=== PATIENT | male | born 1990 | race Caucasian/White ===

== ENCOUNTER 2021-06-05 15:32 | Inpatient (IN) | payer MEDICAID, SELFPAY ==
[2021-06-05] VITALS (19 sets, daily range): BP systolic 76–128; BP diastolic 57–121; PULSE 87–129; RESP 18–32; TEMP 36.9; O2SAT 91–100; BMI 30.4
--- NOTE | ~2021-06-05 | XR_ITS ---
XR chest 1V portable 06/06/2021 07:48 Indication: Pneumonia follow-up Procedure: AP view of the chest Comparison: 06/05/2021 Findings: There is improving patchy bilateral airspace disease, consistent with pneumonia. No pleural effusion or pneumothorax. Impression: 1: Improving patchy bilateral airspace disease, consistent with pneumonia. Reviewed, dictated and finalized at location A. ECH PRODUCTION SPECIALIST Impression: 1: Improving patchy bilateral airspace disease, consistent with pneumonia.
--- NOTE | ~2021-06-05 | CT_ITS ---
EXAMINATION: CT brain wo con INDICATION: Transient alteration of awareness COMPARISON: None TECHNIQUE: Standard unenhanced head CT. The dose-length product (DLP) was 605.33 mGy-cm. The mA was a djusted according to patient size. Iterative reconstruction technique was employed. FINDINGS: There is no intracranial hemorrhage, acute infarction, or abnormal mass lesion. The ventric les are normal. There is no abnormal mass effect or midline shift. The thomas-white matter differentiat ion is normal. The basal cisterns are patent. The orbits are normal. The paranasal sinuses, mastoids and calvarium are normal. IMPRESSION: 1. No acute intracranial abnormality. Reviewed, dictated and finalized at location F. ADVISOR
--- NOTE | ~2021-06-05 | XR_ITS ---
EXAMINATION: XR chest 1V portable INDICATION: Overdose TECHNIQUE: Portable AP chest at 1559 hours COMPARISON: None available FINDINGS: There are patchy airspace opacities throughout the right lung and in the left mid and lower lung zones. There is no pleural effusion or pneumothorax. The heart size is normal. There is pneumom ediastinum as well as soft tissue gas in the neck. IMPRESSION: 1. Patchy bilateral airspace opacities, right greater than left, likely pneumonia. 2. Pneumomediastinum and soft tissue gas in the neck which could reflect paravertebral trauma. Reviewed, dictated and finalized at location F. ATE INVESTIGATOR SURVEILLANCE IMPRESSION: 1. Patchy bilateral airspace opacities, right greater than left, likely pneumon ia. 2. Pneumomediastinum and soft tissue gas in the neck which could reflect parave rtebral trauma.
--- NOTE | 2021-06-05 15:45 | ECG_ITS ---
Measurements Intervals [place] Rate: 130 P: 69 MO: 130 QRS: 84 QRSD: 81 T: 55 QT: 265 QTc: 391 Interpretive Statements SINUS TACHYCARDIA BASELINE ARTIFACT- II, III, AVR, AVL, AVF ABNORMAL ECG Electronically Signed On 06-05-2021 20:15:25 [employer]NAGER [employer] by Alfredo Philip D.O.
[2021-06-05] MEDS: ONDANSETRON INJ 4 MG/2 ML VIAL IV PUSH (15:47)
[2021-06-05] MEDS: NALOXONE HCL INJ 2 MG/2 ML AMP IV PUSH ×2 (15:47→16:42)
[2021-06-05 16:25] LABS: Alveolar/Arterial O2 Gradient 628.2 mmHg; Base Excess ABG -8.6 mEq/l (+/-2.0); Fractional Inspired Oxygen 100 %; HCO3 ABG 16.5 mEq/l (22.0-26.0); Oxygen Content ABG 23.7 %vol (16.0-22.0); Oxyhemoglobin 88.3 % THb (90.0-100.0); PCO2 ABG 34.1 mmHg (35.0-45.0); PO2 ABG 50.7 mmHg (80.0-100.0); PO2 FiO2 Ratio Arterial Blood 0.51 %; Total Hemoglobin 19.2 g/dL (12.0-18.0); pH ABG 7.302 (7.350-7.450)
[2021-06-05 16:26] LABS: Device HIGH FLOW NASAL CANN; Modified Allen's Test Pass; Oxygen Saturation ABG 82.7 % (95.0-100.0); Site Drawn RIGHT BRACHIAL
[2021-06-05 16:36] LABS: Basophils Absolute Auto 0.1 K/mm3 (0.0-0.1); Basophils Percent Auto 0.4 % (0.2-1.2); Hematocrit 55.1 % (42.0-52.0); Immature Granulocyte Absolute 0.06 K/mm3 (0.00-0.031); Immature Granulocyte Percent A 0.4 % (0-0.5); Lymphocytes Absolute Auto 1.23 K/mm3 (0.9-3.2); Lymphocytes Percent Auto 8.9 % (18.3-44.2); Mean Corpuscular HGB Conc 34.5 g/dl (32-36); Mean Corpuscular Hemoglobin 31.8 pg (26-34); Mean Corpuscular Volume 92.1 fl (80-100); Mean Platelet Volume 10.1 fl (7.4-10.4); Monocytes Absolute Auto 1.9 K/mm3 (0.1-0.6); Monocytes Percent Auto 13.8 % (2.6-8.5); Neutrophils Absolute Auto 10.6 K/mm3 (1.3-6.7); Neutrophils Percent Auto 76.5 % (45.5-73.1); Platelet Count Result 265 k/mm3 (150-375); Red Blood Count 5.98 M/mm3 (4.6-6.20); White Blood Count 13.8 K/mm3 (4.5-10.0)
[2021-06-05 16:40] LABS: Acetaminophen < 10 ug/mL (10-30); Ethanol < 10 mg/dL (<10); Lactic Acid Reflex 3.6 mmol/L (0.7-2.1); Salicylate < 1.0 mg/dL (2-20)
[2021-06-05] MEDS: Please add drug allergy info to patient profile. 1 EACH XX (16:42)
[2021-06-05] MEDS: SODIUM CHLORIDE 0.9% IV 1,000 ML 999 ML IV CONT ×2 (16:42→18:25)
[2021-06-05 16:46] LABS: Alanine Aminotransferase 39 U/L (4-50); Albumin Level 4.4 g/dL (3.5-5.1); Alkaline Phosphatase 63 U/L (38-126); Anion Gap 13 mmol/L (8-16); Aspartate Amino Transferase 69 U/L (17-59); Bilirubin,Total 0.8 mg/dL (0.2-1.3); Blood Urea Nitrogen 21 mg/dL (9-20); Calcium 7.7 mg/dL (8.4-10.2); Carbon Dioxide 20 mmol/L (22-30); Chloride 100 mmol/L (98-107); Estimated CRCL calculation 53 ml/min; Estimated Glomerular Filt Rate 45; Glucose 85 mg/dL (65-110); Potassium 7.5 mmol/L (3.4-5.0); Sodium 133 mmol/L (137-145)
[2021-06-05] MEDS: DEXTROSE 50% 25 GM/50 ML SYRINGE IV PUSH (16:58)
[2021-06-05] MEDS: INSULIN HUMAN REGULAR (*BKC) 100 UNITS/ML 10 UNITS IV PUSH (16:58)
[2021-06-05] MEDS: SODIUM BICARBONATE 8.4% 50 MEQ/50 ML SYRINGE IV PUSH (16:59)
[2021-06-05 17:02] LABS: Add Urine Microscopic? YES; Appearance Urine Clear (Clear); Bilirubin Urine Negative (Negative); Blood Urine 1+ (Negative); Color Urine Yellow (Yellow); Glucose Urine UA 3+ mg/dL (Negative); Ketones Urine Trace mg/dL (Negative); Leukocyte Esterase Ur Negative LEU/UL (Negative); Nitrate Urine Negative (Negative); Protein Urine 1+ mg/dL (Negative); RBC Urine 0-2 /hpf (0-2); Specific Grav Ur 1.012 (1.001-1.035); Urobilinogen Urine Negative mg/dL (<2.0)
--- NOTE | 2021-06-05 17:04 | ED.GENADULT ---
HPI - General Adult General Chief complaint: Overdose Stated complaint: OD Time Seen by Provider: 06/05/21 15:37 Source: family and RN notes reviewed Mode of arrival: EMS Limitations: altered mental status History of Present Illness HPI narrative: 30-year-old male presents to the emergency department for evaluation after a suspected fentanyl overdose. Patient does have a prior history of opiate abuse. Family states that the patient has been living at home with them. They state he did have rehab approximately 10 months ago. Patient has had increased life stressors including breaking up with his boyfriend and quitting his job. Parents state that they saw him last night and he was well-appearing. They went to check on him this morning at 11 AM and he was snoring in bed. They went to check on him again this afternoon at some time after 2:00 and found him to be breathing abnormally so they called EMS. EMS did treat the patient with multiple rounds of Narcan and did have a minor improvement in his mentation. Upon arrival to the emergency department patient was somnolent and tachycardic and hypoxic. Related Data Allergies Allergy/AdvReac Type Severity Reaction Status Date / Time No Known Allergies Allergy Verified 06/05/21 16:41 Review of Systems Review of Systems: ROS unobtainable: Yes unobtainable due to medical condition Exam Narrative: APPEARANCE: Somnolent HEAD: normocephalic, atraumatic. EYES: PERRLA/EOMI, conjunctivae clear. NOSE: Normal no drainage EARS:TMS clear with good light reflex. RESPIRATORY: Airway patent, respirations nonlabored. Clear to auscultation bilaterally, no rales, rhonchi, wheezing. CARDIOVASCULAR: Regular rate and rhythm without murmurs rubs or gallops. ABDOMINAL: Soft, nontender, nondistended, normal bowel sounds MUSCULOSKELETAL: Moves all extremities. Strength/ROM intact, No edema, No calf tenderness. NEURO: Somnolent but responsive to voice. No focal neuro deficit. SKIN: Warm, dry. Normal Color Course Course Emergency Course: Upon arrival to the emergency department patient was minimally responsive. Patient did respond to voice but not answer questions directly. Patient was still mildly hypoxic with saturations in the mid 80s to 90 on 15 L patient was placed on BiPAP and this significantly helped his oxygenation. Patient's potassium was elevated at 7.5. Patient was treated with insulin glucose bicarb Kayexalate and calcium gluconate. Patient is also receiving IV fluids. Patient did admit to taking a handful of fentanyl. Patient declined suicide attempt parents are concerned that this was a suicide attempt. Case was discussed with Dr. Abraham regarding the need for dialysis. He felt that the patient's potassium improved below 6 he would be comfortable keeping the patient here. Patient's potassium did improve to 5.7 on recheck. Case was discussed with the infirmary attendant and patient was accepted for admission to the ICU. Case was discussed with the hospitalist and patient was admitted. At time of admission patient was more alert and he was updated on the plan for admission. Case was also discussed with the patient's father and all questions and concerns were addressed. Vital Signs Vital signs: Vital Signs Pulse Rate 129 H 06/05/21 15:36 Respiratory Rate 32 H 06/05/21 15:36 Blood Pressure 128/121 H 06/05/21 15:36 Pulse Oximetry 92 06/05/21 15:36 Pulse Rate 88 06/05/21 21:06 Respiratory Rate 26 H 06/05/21 21:06 Blood Pressure 76/64 L 06/05/21 21:06 Pulse Oximetry 96 06/05/21 21:06 Medical Decision Making Vital Signs Vital Signs: Vital Signs Pulse Rate 129 H 06/05/21 15:36 Respiratory Rate 32 H 06/05/21 15:36 Blood Pressure 128/121 H 06/05/21 15:36 Pulse Oximetry 92 06/05/21 15:36 Pulse Rate 88 06/05/21 21:06 Respiratory Rate 26 H 06/05/21 21:06 Blood Pressure 76/64 L 06/05/21 21:06 Pulse Oximetry 96 06/05/21 21:06 Lab Data Lab
[2021-06-05 17:28] LABS: Amphetamine Screen Urine Negative (Negative); Barbiturate Screen Urine Negative (Negative); Benzodiazepines Screen Urine Negative (Negative); Cannabinoid Screen Urine Negative (Negative); Cocaine Screen Urine Negative (Negative); Methadone Screen Urine Negative (Negative); Opiate Screen Urine Negative (Negative); Phencyclidine Screen Urine Negative (Negative)
[2021-06-05 17:52] LABS: Anion Gap 9 mmol/L (8-16); Basophils Percent Auto 0.4 % (0.2-1.2); Blood Urea Nitrogen 23 mg/dL (9-20); Calcium 7.3 mg/dL (8.4-10.2); Carbon Dioxide 23 mmol/L (22-30); Chloride 103 mmol/L (98-107); Eosinophils Absolute Auto 0.2 K/mm3 (0-0.3); Eosinophils Percent Auto 1.6 % (0-4.4); Estimated CRCL calculation 59 ml/min; Estimated Glomerular Filt Rate 51; Glucose 137 mg/dL (65-110); Hematocrit 53.5 % (42.0-52.0); Hemoglobin 18.1 g/dL (14.0-18.0); Immature Granulocyte Absolute 0.03 K/mm3 (0.00-0.031); Immature Granulocyte Percent A 0.3 % (0-0.5); Lymphocytes Absolute Auto 0.91 K/mm3 (0.9-3.2); Lymphocytes Percent Auto 9.5 % (18.3-44.2); Mean Corpuscular HGB Conc 33.8 g/dl (32-36); Mean Corpuscular Hemoglobin 31.9 pg (26-34); Mean Corpuscular Volume 94.2 fl (80-100); Mean Platelet Volume 9.7 fl (7.4-10.4); Monocytes Absolute Auto 0.7 K/mm3 (0.1-0.6); Monocytes Percent Auto 7.5 % (2.6-8.5); Neutrophils Absolute Auto 7.7 K/mm3 (1.3-6.7); Neutrophils Percent Auto 80.7 % (45.5-73.1); Platelet Count Result 187 k/mm3 (150-375); Potassium 5.7 mmol/L (3.4-5.0); Red Blood Count 5.68 M/mm3 (4.6-6.20); Red Cell Distribution Width 13.1 % (11.5-14.5); Sodium 135 mmol/L (137-145); White Blood Count 9.5 K/mm3 (4.5-10.0)
[2021-06-05 18:43] LABS: SARS-CoV-2 RNA PCR Negative
[2021-06-05 18:53] LABS: Creatine Kinase 912 U/L (55-170)
[2021-06-05 19:20] LABS: Reflex Lactic Acid Yes or No Add Lactic
[2021-06-05] MEDS: CALCIUM GLUCONATE 1,000 MG/10 ML VIAL 1000 MG IV PUSH (19:23)
--- NOTE | 2021-06-05 19:38 | PC.NURSE ---
Pt currently being decontaminated by RN and Tech.
--- NOTE | 2021-06-05 19:45 | PC.NURSE ---
Pt clothing removed and placed in plastic bag, secured and disposed of in trash. New gown and linens on bed. Bed bath provided prior to transport to ICU.
[2021-06-05] MEDS: SODIUM CHLORIDE 0.9% IV 1,000 ML 999 ML (20:39)
[2021-06-05] MEDS: SODIUM POLYSTYRENE SULFONONATE 15 GM/60 ML BTL 30 GM PO (20:51)
[2021-06-05 20:54] LABS: Lactic Acid 1.8 mmol/L (0.7-2.1)
--- NOTE | 2021-06-05 21:08 | PC.NURSE ---
Patient care report called to MACIEJ Copeland in ICU. Patient care report given to MACIEJ Copeland and all questions answered at this time. Will transport to ICU with monitors and on Bipap with respiratory.
[2021-06-05] MEDS: LACTATED RINGERS 1,000 ML 125 ML IV CONT (21:16)
--- NOTE | 2021-06-05 21:48 | ADMGEN ---
This patient, Hilario Arechiga, was admitted to Intensive Care Unit-3 on 06/05/21 at 2135. Patient/family oriented to hospital policies and general routines including ID bracelet, bed and alarms, visiting hours, pain management, procedures, bathroom and other care routines, personal items, smoking policy, room service/diet, and visiting hours. Information on how to activate the Rapid Response Team has been discussed. Patient/Family are encouraged to report perceived risks to care and to ask questions if they do not understand what they are told or what they should do.
--- NOTE | 2021-06-05 22:23 | PM.IMHP ---
H&P: HPI History of Present Illness Date/Time: Patient requires inpatient monitoring with expected length of stay to exceed 2 midnights for management of care. 06/05/21 22:23 Chief Complaint: Overdose Narrative: Mr. Arechiga is a 30-year-old gentleman who presented to the emergency room for evaluation of suspected fentanyl overdose. When seen the patient he is currently on BiPAP so it is somewhat difficult to get history from him. Patient states he does have a prior history of fentanyl abuse and he has been using recently. Patient states he had been clean for over a year. Per emergency room records family had stated the patient has been living with them and has been having increasing stressors in his life including breaking up with his boyfriend in quitting his job. Per emergency room records patient's parents stated that when they saw him last night he was doing well and when they checked on him at 11:00 a.m. this morning he was snoring in bed. The family went to check on him again this afternoon around 2 and they found him to be breathing very abnormally and EMS was called. Per emergency room records patient was given multiple doses of Narcan in route to the hospital with little results and then patient was given Narcan in the emergency room and finally placed on a Narcan drip and he became arousable and more alert. Patient states that last night he was doing large amounts of fentanyl and he was snorting his fentanyl. Patient denies recently injecting any fentanyl. Patient denies having any past medical problems except for his addiction. Patient denies any history of surgeries. Review of Systems Review of Systems: It is difficult to obtain a full review of systems from patient secondary to his mental status and being on BiPAP. FOR[facility]LY [facility], [facility] Past Medical History Medical History Illicit drug use Social History Social History Smoking packs per day: 0.5 Smoking cigarettes per day: 10.0 Years smoked: 15 Smoking pack-years: 7.50 Smoking status: Current every day smoker Tobacco type: cigarettes Spiritual care concerns: No Meds Home Medications and Allergies Allergies Allergy/AdvReac Type Severity Reaction Status Date / Time No Known Allergies Allergy Verified 06/05/21 16:41 Vital Signs Vital Signs - 24 hr 06/05/21 15:36 06/05/21 16:27 06/05/21 16:43 Temperature Pulse Rate 129 H 122 H 117 H Respiratory Rate 32 H 27 H 27 H Blood Pressure 128/121 H 93/76 L Pulse Oximetry 92 96 97 06/05/21 19:43 06/05/21 20:02 06/05/21 20:06 Temperature Pulse Rate 112 H 98 102 H Respiratory Rate 23 H 23 H 22 H Blood Pressure 113/78 83/67 L Pulse Oximetry 96 100 100 06/05/21 20:11 06/05/21 20:16 06/05/21 20:31 Temperature Pulse Rate 95 97 95 Respiratory Rate 21 H 27 H 24 H Blood Pressure 92/63 L 87/63 L 86/61 L Pulse Oximetry 100 06/05/21 20:36 06/05/21 20:41 06/05/21 20:46 Temperature Pulse Rate 93 94 95 Respiratory Rate 21 H 20 18 Blood Pressure 83/61 L 88/65 L 77/57 L Pulse Oximetry 99 100 100 06/05/21 20:56 06/05/21 21:01 06/05/21 21:06 Temperature Pulse Rate 92 89 88 Respiratory Rate 22 H 22 H 26 H Blood Pressure 103/75 98/66 L 76/64 L Pulse Oximetry 91 100 96 06/05/21 21:30 06/05/21 21:36 Temperature 36.9 C Pulse Rate 87 92 Respiratory Rate 20 26 H Blood Pressure 100/64 Pulse Oximetry 96 99 Exam Narrative: Constitutional: Patient is resting in bed with BiPAP on and is in no acute distress. Patient is alert oriented times 2-3. HEENT: Moist mucous membranes. No scleral icterus. No lymphadenopathy. Neck: No carotid bruits noted no JVD noted Lungs: Lung sounds are clear to auscultation bilaterally. No accessory muscle use. No rhonchi, rales, or wheezes noted. Cardiovascular: Apical pulse is regular rhythm and tachycardic. S1-S2 noted, no S3 or S4 noted. No gallops, murmurs, or rubs noted. Abdomen: Soft, round, and nontender. No palpable masses. Extr
[2021-06-05] MEDS: SODIUM CHLORIDE 0.9% IV 1,000 ML 125 ML IV CONT (22:24)
[2021-06-05 23:34] LABS: Base Excess ABG -7.7 mEq/l (+/-2.0); Fractional Inspired Oxygen 50 %; HCO3 ABG 16.8 mEq/l (22.0-26.0); Oxygen Content ABG 20.2 %vol (16.0-22.0); Oxygen Saturation ABG 90.9 % (95.0-100.0); Oxyhemoglobin 90.3 % THb (90.0-100.0); PCO2 ABG 32.1 mmHg (35.0-45.0); PO2 ABG 62.4 mmHg (80.0-100.0); PO2 FiO2 Ratio Arterial Blood 1.25 %; Total Hemoglobin 15.9 g/dL (12.0-18.0); pH ABG 7.337 (7.350-7.450)
[2021-06-05 23:37] LABS: Device BIPAP; Modified Allen's Test Pass; Site Drawn LEFT RADIAL
[2021-06-05 23:38] LABS: Expiratory Pressure 6 cmH2O; Inspiratory Pressure 12 cmH2O
[2021-06-06] VITALS (20 sets, daily range): BP systolic 86–128; BP diastolic 52–93; PULSE 71–99; RESP 14–28; TEMP 36.4–37.3; O2SAT 92–99
[2021-06-06] MEDS: SODIUM CHLORIDE 0.9% IV 1,000 ML 999 ML IV CONT (00:20)
[2021-06-06 00:41] LABS: Anion Gap 6 mmol/L (8-16); Blood Urea Nitrogen 20 mg/dL (9-20); Calcium 6.5 mg/dL (8.4-10.2); Carbon Dioxide 18 mmol/L (22-30); Chloride 112 mmol/L (98-107); Creatine Kinase 1151 U/L (55-170); Estimated CRCL calculation 96 ml/min; Estimated Glomerular Filt Rate > 60; Glucose 129 mg/dL (65-110); Potassium 4.4 mmol/L (3.4-5.0); Sodium 136 mmol/L (137-145)
[2021-06-06 04:41] LABS: Basophils Percent Auto 0.2 % (0.2-1.2); Hematocrit 40.8 % (42.0-52.0); Hemoglobin 14.3 g/dL (14.0-18.0); Immature Granulocyte Absolute 0.03 K/mm3 (0.00-0.031); Immature Granulocyte Percent A 0.2 % (0-0.5); Lymphocytes Absolute Auto 0.99 K/mm3 (0.9-3.2); Lymphocytes Percent Auto 8.1 % (18.3-44.2); Mean Corpuscular Hemoglobin 31.8 pg (26-34); Mean Corpuscular Volume 90.9 fl (80-100); Mean Platelet Volume 10.4 fl (7.4-10.4); Monocytes Absolute Auto 0.8 K/mm3 (0.1-0.6); Monocytes Percent Auto 6.2 % (2.6-8.5); Neutrophils Absolute Auto 10.4 K/mm3 (1.3-6.7); Neutrophils Percent Auto 85.3 % (45.5-73.1); Platelet Count Result 155 k/mm3 (150-375); Red Blood Count 4.49 M/mm3 (4.6-6.20); Red Cell Distribution Width 13.3 % (11.5-14.5); White Blood Count 12.2 K/mm3 (4.5-10.0)
[2021-06-06 04:50] LABS: Alanine Aminotransferase 29 U/L (4-50); Albumin Level 2.6 g/dL (3.5-5.1); Alkaline Phosphatase 39 U/L (38-126); Anion Gap 3 mmol/L (8-16); Aspartate Amino Transferase 52 U/L (17-59); Bilirubin,Total 0.4 mg/dL (0.2-1.3); Blood Urea Nitrogen 15 mg/dL (9-20); Calcium 6.8 mg/dL (8.4-10.2); Carbon Dioxide 23 mmol/L (22-30); Chloride 111 mmol/L (98-107); Estimated CRCL calculation 105 ml/min; Estimated Glomerular Filt Rate > 60; Glucose 102 mg/dL (65-110); Potassium 3.9 mmol/L (3.4-5.0); Sodium 137 mmol/L (137-145)
[2021-06-06 05:08] LABS: Creatine Kinase 1058 U/L (55-170)
[2021-06-06] MEDS: SODIUM CHLORIDE 0.9% IV 1,000 ML 125 ML IV CONT ×2 (06:50→14:56)
--- NOTE | 2021-06-06 07:49 | WPDCNINT ---
Assessment and Plan Assessment and plan (1) Fentanyl poisoning of undetermined intent: Qualifiers: Encounter type: initial encounter Qualified Code(s): T40.414A - Poisoning by fentanyl or fentanyl analogs, undetermined, initial encounter Code(s): T40.414A - Poisoning by fentanyl or fentanyl analogs, undetermined, initial encounter Status: Acute Assessment and Plan: Patient presented with altered mental status, agonal breathing, known fentanyl abuse -patient was started on Narcan infusion in the ER and responded well -this morning he is awake, alert, oriented, follows simple commands -wound Narcan infusion monitor patient (2) Rhabdomyolysis: Code(s): M62.82 - Rhabdomyolysis Status: Acute Assessment and Plan: Patient received 5 L IV fluid bolus on maintenance IV fluids -CK levels most stable -will continue to monitor (3) Acute hyperkalemia: Code(s): E87.5 - Hyperkalemia Status: Acute Assessment and Plan: Acute hyperkalemia could be related to acute kidney injury, rhabdomyolysis, -patient was treated for the hyperkalemia with sodium bicarbonate, Kayexalate, insulin D50, -repeat potassium this morning is 3.9, continue to monitor (4) STEPHANIE (acute kidney injury): Code(s): N17.9 - Acute kidney failure, unspecified Status: Acute Assessment and Plan: Acute kidney injury most likely related to rhabdomyolysis, hypovolemia, hypoxia -he received 5 L of IV fluids and continues to be on maintenance IV fluids -transient admission was 1.8, which has improved to 1.0 this morning (06/06) -continue monitor renal function, electrolytes and urine output (5) Pulmonary infiltrates on CXR: Code(s): R91.8 - Other nonspecific abnormal finding of lung field Status: Acute Assessment and Plan: Pulmonary infiltrates right than left -could be related to pneumonia secondary to aspiration or fluid induced pulmonary edema -repeat chest x-ray this morning shows improvement -will switch ceftriaxone and azithromycin to Zosyn for aspiration pneumonia (6) Altered mental status: Code(s): R41.82 - Altered mental status, unspecified Status: Acute Assessment and Plan: Altered mental status most likely related to opioid abuse/overdose -improved with Narcan infusion, will continue to monitor Additional Plan Discussed with patient updated with his condition and plan of care. I did discuss with him regarding getting a repeat chest x-ray and giving him a break from the BiPAP to which she is agreeable. DVT prophylaxis: Lovenox Nutrition: Regular diet Code status: Full code Critical care time spent: 43 minute This dictation may have been done utilizing a voice recognition system. Attempts have been made to correct errors. However, there may be uncorrected grammatical, spelling, and recognition errors present. Due to a high probability of clinically significant, life threatening deterioration, the patient required my highest level of preparedness to intervene emergently and I personally spent this critical care time directly and personally managing the patient. This critical care time included obtaining a history; examining the patient; pulse oximetry; ordering and review of studies; arranging urgent treatment with development of a management plan; evaluation of patient's response to treatment; frequent reassessment; and discussions with other providers. It was exclusive of separately billable procedures and treating other patients and teaching time. Please see Assessment and Plan section and the rest of the note for further information on patient assessment and treatment Risk Management Specialist Consult Note Consult date: 06/06/21 Reason for consult: Likely opiate overdose HPI: Hilario Arechiga is a 30 year old male with significant past medical history of illicit drug use presented the ED on 06/05/2021 with complaints of altered mental status and suspected fentanyl o
[2021-06-06] MEDS: CALCIUM GLUC 2,000 MG/NS 100ML 2,000 MG/100 ML BAG 100 MG IVPB (08:04)
[2021-06-06] MEDS: ENOXAPARIN 40 MG/0.4 ML SYRINGE SUB-Q (08:32)
--- NOTE | 2021-06-06 14:23 | PM.IMPN ---
Progress Note: A&P Assessment and Plan (1) Fentanyl poisoning of undetermined intent: Qualifiers: Encounter type: initial encounter Qualified Code(s): T40.414A - Poisoning by fentanyl or fentanyl analogs, undetermined, initial encounter Code(s): T40.414A - Poisoning by fentanyl or fentanyl analogs, undetermined, initial encounter Status: Acute Assessment and Plan: status post Narcan and improved. Respiratory status is okay. Currently on 2liters of oxygen and options such patient Alyssa had (2) Rhabdomyolysis: Code(s): M62.82 - Rhabdomyolysis Status: Acute Assessment and Plan: -will continue to monitor (3) Acute hyperkalemia: Code(s): E87.5 - Hyperkalemia Status: Acute Assessment and Plan: Resolved. Monitor electrolytes (4) STEPHANIE (acute kidney injury): Code(s): N17.9 - Acute kidney failure, unspecified Status: Acute Assessment and Plan: kidney function improved. (5) Pulmonary infiltrates on CXR: Code(s): R91.8 - Other nonspecific abnormal finding of lung field Status: Acute Assessment and Plan: Pulmonary infiltrates right than left -currently on vanc and Zosyn. Possible aspiration. (6) Altered mental status: Code(s): R41.82 - Altered mental status, unspecified Status: Acute Assessment and Plan: Improved after Narcan. Subjective Date/time seen: 06/06/21 14:23 Alert, on 2liters of oxygen. No complaints really. Mild chest pain but he did have chest compressions prior to admission. Review of Systems Review of Systems: 10 point ROS negative except as stated in HPI / Subjective Exam Narrative: General: alert and oriented Psych: appropriate mood nad affect Eyes: PERRLA Neck: Trachea midline, no new lesions Skin: no changes Lungs: CTA Cardiac: Normal S1,S2, no MGR ABD: soft, nd, nt, nbs Ext: no new lesions, no cce Vasc: Pulses intact Objective Data Vital Signs Vital Signs: Vital Signs - 24 hr 06/05/21 15:36 06/05/21 16:27 06/05/21 16:43 Temperature Pulse Rate 129 H 122 H 117 H Respiratory Rate 32 H 27 H 27 H Blood Pressure 128/121 H 93/76 L Pulse Oximetry 92 96 97 06/05/21 19:43 06/05/21 20:02 06/05/21 20:06 Temperature Pulse Rate 112 H 98 102 H Respiratory Rate 23 H 23 H 22 H Blood Pressure 113/78 83/67 L Pulse Oximetry 96 100 100 06/05/21 20:11 06/05/21 20:16 06/05/21 20:31 Temperature Pulse Rate 95 97 95 Respiratory Rate 21 H 27 H 24 H Blood Pressure 92/63 L 87/63 L 86/61 L Pulse Oximetry 100 06/05/21 20:36 06/05/21 20:41 06/05/21 20:46 Temperature Pulse Rate 93 94 95 Respiratory Rate 21 H 20 18 Blood Pressure 83/61 L 88/65 L 77/57 L Pulse Oximetry 99 100 100 06/05/21 20:56 06/05/21 21:01 06/05/21 21:06 Temperature Pulse Rate 92 89 88 Respiratory Rate 22 H 22 H 26 H Blood Pressure 103/75 98/66 L 76/64 L Pulse Oximetry 91 100 96 06/05/21 21:30 06/05/21 21:36 06/05/21 22:00 Temperature 98.4 F Pulse Rate 87 92 89 Respiratory Rate 20 26 H Blood Pressure 100/64 Pulse Oximetry 96 99 06/05/21 23:00 06/06/21 00:00 06/06/21 00:13 Temperature 97.5 F L Pulse Rate 91 96 99 Respiratory Rate 18 21 H 17 Blood Pressure 94/78 L 86/68 L 99/74 L Pulse Oximetry 100 98 97 06/06/21 00:15 06/06/21 00:42 06/06/21 01:45 Temperature Pulse Rate 92 93 93 Respiratory Rate 25 H 25 H Blood Pressure 125/52 L Pulse Oximetry 99 98 06/06/21 02:00 06/06/21 02:16 06/06/21 04:00 Temperature 98 F Pulse Rate 85 93 87 Respiratory Rate 14 24 H 21 H Blood Pressure 103/85 99/82 L Pulse Oximetry 99 98 97 06/06/21 05:00 06/06/21 05:11 06/06/21 06:00 Temperature Pulse Rate 76 74 79 Respiratory Rate 20 19 Blood Pressure 111/79 109/82 Pulse Oximetry 98 97 06/06/21 08:00 06/06/21 08:10 06/06/21 10:00 Temperature 98.9 F 99.0 F Pulse Rate 71 87 85 Respiratory Rate 18 18 18 Blood Pressure 108
[2021-06-07 08:00] VITALS: BP 123/83; PULSE 82; RESP 18; TEMP 37.2; O2SAT 95
[2021-06-07] MEDS: ENOXAPARIN 40 MG/0.4 ML SYRINGE SUB-Q (08:05)
[2021-06-07 10:01] VITALS: O2SAT 93
--- NOTE | 2021-06-07 15:41 | PM.IMPN ---
Progress Note: A&P Assessment and Plan (1) Fentanyl poisoning of undetermined intent: Qualifiers: Encounter type: initial encounter Qualified Code(s): T40.414A - Poisoning by fentanyl or fentanyl analogs, undetermined, initial encounter Code(s): T40.414A - Poisoning by fentanyl or fentanyl analogs, undetermined, initial encounter Status: Acute Assessment and Plan: status post Narcan and improved. pt is off oxygen today. (2) Rhabdomyolysis: Code(s): M62.82 - Rhabdomyolysis Status: Acute Assessment and Plan: -will continue to monitor with CK level (3) Acute hyperkalemia: Code(s): E87.5 - Hyperkalemia Status: Acute Assessment and Plan: Resolved. Monitor electrolytes (4) STEPHANIE (acute kidney injury): Code(s): N17.9 - Acute kidney failure, unspecified Status: Acute Assessment and Plan: kidney function improved. (5) Pulmonary infiltrates on CXR: Code(s): R91.8 - Other nonspecific abnormal finding of lung field Status: Acute Assessment and Plan: Pulmonary infiltrates right than left -currently on vanc and Zosyn. Possible aspiration. (6) Altered mental status: Code(s): R41.82 - Altered mental status, unspecified Status: Resolved Assessment and Plan: Improved after Narcan. Subjective Date/time seen: 06/07/21 15:41 Interval history: 30-year-old gentleman who presented to the emergency room for evaluation of suspected fentanyl overdose. Pt is off Bipap Pt is off oxygen continue to monitor today and dc tomorrow. Review of Systems Review of Systems: All systems reviewed & are unremarkable except as noted in HPI and below Exam Narrative: General: alert and oriented Neck: Trachea midline Skin: no changes Lungs: lungs are clear Cardiac: Normal S1,S2, no MGR ABDO: soft, nt Ext: no new lesions Objective Data Vital Signs Vital Signs: Vital Signs - 24 hr 06/06/21 16:00 06/06/21 20:00 06/06/21 22:34 Temperature 37.2 C 37.3 C Pulse Rate 89 84 Respiratory Rate 21 H 28 H Blood Pressure 122/71 128/88 Pulse Oximetry 93 96 92 06/07/21 08:00 06/07/21 10:01 Temperature 37.2 C Pulse Rate 82 Respiratory Rate 18 Blood Pressure 123/83 Pulse Oximetry 95 93 Intake/Output Intake/Output: Intake & Output 06/04/21 06/05/21 06/06/21 06/07/21 23:59 23:59 23:59 23:59 Intake Total 3050 5893 1790 Output Total 4050 1550 Balance 3050 1843 240 Meds/Results Medications: Active Medications Generic Name Dose Route Start Last Admin Trade Name Freq PRN Reason Stop Dose Admin Dextrose 12.5 gm 06/05/21 16:47 Dextrose 50% 25 Gm/50 Ml Syringe IV PUSH PRN PRN Hypoglycemia Protocol Enoxaparin Sodium 40 mg 06/06/21 09:00 06/07/21 08:05 Enoxaparin 40 Mg/0.4 Ml Syringe SUB-Q 40 mg DAILY VADIM Administration Glucagon 1 mg 06/05/21 16:47 Glucagon For Inj 1 Mg Vial IM PRN PRN Hypoglycemia Protocol Glucose 15 gm 06/05/21 16:47 Glucose Oral Gel 15 Gm Of Glucse In 37.5 Gm Tube PO PRN PRN Hypoglycemia Protocol Dextrose 1,000 mls @ 100 mls/hr 06/05/21 16:47 Dextrose 5% 1,000 Ml IVPB PRN PRN Hypoglycemia Protocol Piperacillin/Tazobactam/Dextrose 3.375 gm in 50 mls @ 100 mls/hr 06/06/21 08:00 06/07/21 15:20 Zosyn 3.375 Gm/D5w 50ml Pm IVPB Infused Q6H VADIM Infusion Vancomycin HCl 1,500 mg in 500 mls @ 333.333 mls/hr 06/06/21 09:00 06/07/21 10:00 Vancomycin 1,500 Mg/D5w 500 Ml IVPB Infused Q12H VADIM Infusion Radiology Results: ITS Impressions Head CT 06/05/21 17:26 IMPRESSION: 1. No acute intracranial abnormality. Chest X-Ray 06/06/21 07:54 Impression: 1: Improving patchy bilateral airspace disease, consistent with pneumonia. Quality VTE Prophylaxis VTE prophylaxis: mechanical ordered and pharmacologic ordered
[2021-06-07 16:00] VITALS: BP 137/93; PULSE 87; RESP 20; TEMP 37.1; O2SAT 96
[2021-06-07 20:00] VITALS: PULSE 86; RESP 16; O2SAT 96
[2021-06-07 20:20] VITALS: O2SAT 95
[2021-06-07 20:49] LABS: Vancomycin Trough 8.3 ug/mL (10.0-20.0)
[2021-06-08] VITALS: BP 124/78; PULSE 73; RESP 16; TEMP 37; O2SAT 96
[2021-06-08 08:00] VITALS: BP 121/82; PULSE 71; PULSE 86; RESP 16; RESP 20; TEMP 36.8; O2SAT 95; O2SAT 96
[2021-06-08] MEDS: ENOXAPARIN 40 MG/0.4 ML SYRINGE SUB-Q (08:10)
[2021-06-08 08:30] VITALS: O2SAT 93
--- NOTE | 2021-06-08 12:21 | PM.DS ---
DS: Admitting Diagnosis Discharge Date 06/08/2021 Admitting Diagnosis Overdose DS: Discharge Diagnosis Discharge Diagnosis (1) Fentanyl poisoning of undetermined intent: Qualifiers: Encounter type: initial encounter Qualified Code(s): T40.414A - Poisoning by fentanyl or fentanyl analogs, undetermined, initial encounter Code(s): T40.414A - Poisoning by fentanyl or fentanyl analogs, undetermined, initial encounter Status: Acute Assessment and Plan: Status post Narcan and improved. pt is off oxygen today. stable for DC. Pt to follow with [facility]. Pt seen by crisis in the icu. Pt will go home with his dad. (2) Rhabdomyolysis: Code(s): M62.82 - Rhabdomyolysis Status: Acute Assessment and Plan: -will continue to monitor with CK level pt advised to drink plenty of fluids (3) Acute hyperkalemia: Code(s): E87.5 - Hyperkalemia Status: Acute Assessment and Plan: Resolved. Monitor electrolytes (4) STEPHANIE (acute kidney injury): Code(s): N17.9 - Acute kidney failure, unspecified Status: Acute Assessment and Plan: kidney function improved. (5) Pulmonary infiltrates on CXR: Code(s): R91.8 - Other nonspecific abnormal finding of lung field Status: Acute Assessment and Plan: Pulmonary infiltrates right than left -currently on vanc and Zosyn. Possible aspiration. Pt dc with oral augmentin (6) Altered mental status: Code(s): R41.82 - Altered mental status, unspecified Status: Resolved Assessment and Plan: Improved after Narcan. DS: Summary Hospital Course Hospital Course: 30-year-old gentleman who presented to the emergency room for evaluation of suspected fentanyl overdose. Pt had to have narcan several times and was initially on BIPAP. Pt is off Bipap Pt is off oxygen continue to monitor today and dc tomorrow. Time Spent with Patient Time attestation: Total time spent providing and/or coordinating discharge services:45 minutes on day if discharge Exam Narrative: General: alert and oriented Neck: Trachea midline Skin: no changes Lungs: lungs are clear Cardiac: Normal S1,S2, no MGR ABDO: soft, nt DS: Data Data Completed and Pending Labs on day of discharge: Labs from last 24 hours 06/07/21 20:02 Vancomycin Trough 8.3 L Discharge Plan Discharge Attending physician on discharge: Marlin Rojas Consulting providers: Bryn Koch ; Manuel Vega Discharging Clinician: Marlin Rojas Anticipated Discharge Date/Time: 06/08/21 12:20 Patient Disposition: Home, Self-Care Activity: as tolerated Diet: as tolerated Discharge Instructions: FATHER WILLbe at home with him Pt to follow with [facility] Patient Instructions: Antibiotic Form Stand Alone Forms: General Discharge Information Follow-up/Referrals: Bryn Koch MD [Physician] - Discharge Medications: New amoxicillin-pot clavulanate [Augmentin] 500-125 mg tablet 1 tablet PO Q12H Qty: 20 RF: 0 Continued Lexapro 20 mg PO DAILY RF: 0 Date of admission: 06/05/21 18:55 Primary Care Provider: PHYSICIAN,VOCATIONAL EVALUATOR Admitting Provider: Jessica Lai Attending physician on admission: Jessica Lai Condition: Improved
== END 2021-06-08 13:12 | disposition home or self-care (01) | DRG 812 ==
LOC: ANHED 18:55 → ANHICU 21:27
PROVIDERS: Internal Medicine; Nurse Practitioner Adult Health; Admitting Provider Internal Medicine; Emergency Provider Emergency Medicine; Visit Provider Family Medicine
DX: T40.414A Poisoning by fentanyl or fentanyl analogs, undetermined, initial encounter (principal); N17.9 Acute kidney failure, unspecified; M62.82 Rhabdomyolysis; E87.5 Hyperkalemia; R91.8 Other nonspecific abnormal finding of lung field; R41.82 Altered mental status, unspecified; R09.02 Hypoxemia; F17.210 Nicotine dependence, cigarettes, uncomplicated; Z20.822 Contact with and (suspected) exposure to COVID-19; Z79.899 Other long term (current) drug therapy
CPT/HCPCS: 36415; 36600; 70450; 71045; 80048; 80053; 80202; 80307; 81001; 82550; 82805; 83605; 84443; 85025; 87086; 93005; 96361; 96374; 96375; 96376; 99285; A9270; C9803; J0456; J0610; J0696; J1650; J1815; J2310; J2405; J2543; J3370; J7030; J7050; J7120; U0003; U0005

== ENCOUNTER 2022-03-15 07:18 | Inpatient (IN) | payer OTHER, SELFPAY ==
[2022-03-15] VITALS (25 sets, daily range): BP systolic 135–149; BP diastolic 88–113; PULSE 117–130; RESP 14–18; TEMP 36.6–36.9; O2SAT 93–100
--- NOTE | ~2022-03-15 | US_ITS ---
EXAMINATION: US right upper quadrant DATE: 03/19/2022 10:52 INDICATION: Pancreatitis. TECHNIQUE: Multiple grayscale and Doppler ultrasound images of the abdomen were obtained. COMPARISON: CT abdomen and pelvis 03/15/2022 FINDINGS: There is no abnormal mass in the visualized portions of the head and body of the pancreas. There is diffuse hepatic steatosis. The gallbladder is normal in size. No gallstones or gallbladder w all thickening. There is no sonographic Miller sign. The common duct is normal and measures 4 mm . IMPRESSION: 1. Diffuse hepatic steatosis. Reviewed, dictated and finalized at location A. E GAMES SHIFT MANAGER
--- NOTE | ~2022-03-15 | CT_ITS ---
EXAMINATION: CT abdomen pelvis w con DATE: 03/15/2022 08:38 INDICATION: Epigastric pain TECHNIQUE: Computed tomography (CT) of the abdomen and pelvis was performed with 100 mL Omnipaque-350 intravenous contrast. Automated exposure control and iterative reconstruction technique were employe d. The dose-length product was 765.86 mGy-cm. COMPARISON: None FINDINGS: Linear bands of discoid atelectasis in the lingula and right lower lobe. Heart size is normal. No per icardial or pleural effusion. Small sliding-type hiatal hernia. Prominent diffuse hepatic steatosis w ith focal sparing along the gallbladder fossa. Gallbladder, spleen, bilateral adrenal glands and kidn eys are normal. Some edematous appearance to the uncinate process of the pancreas with surrounding in flammatory stranding consistent with acute interstitial pancreatitis. There is a small amount of nonl oculated retroperitoneal fluid tracking caudally along the left and right anterior pararenal spaces t o the paracolic gutters. No evident loculated fluid collections, parenchymal hemorrhage or thrombosis in the adjacent portal venous system. Bowels including the appendix are normal. Bladder is normal. T race amount of likely reactive free fluid in the pelvis. No abscess or free intraperitoneal gas. No p athologically enlarged abdominal or pelvic lymphadenopathy. Mild likely physiologic anterior wedging at T12-L2. IMPRESSION: 1. Acute interstitial pancreatitis centered at the uncinate process. 2. Prominent diffuse hepatic steatosis. Reviewed, dictated and finalized at location A. TION MIXER
--- NOTE | 2022-03-15 07:29 | ED.GENADULT ---
HPI - General Adult General Chief complaint: Abdominal Pain Stated complaint: epigastric pain Time Seen by Provider: 03/15/22 07:29 Source: patient and RN notes reviewed Mode of arrival: ambulatory Limitations: no limitations History of Present Illness HPI narrative: 31 years old white male drove himself to the hospital, complaining of epigastric pain, sharp, intermittent for few weeks, constant for the last 2 days, no aggravating or relieving factors, associated with intermittent nausea, intermittent vomiting, no radiation of the pain. Also denies any fever or chills or history of abdominal surgery or history of similar symptoms. Patient vapes, drinks alcohol daily, denies any drug use or abuse Related Data Home Medications Medication Instructions Recorded Confirmed Lexapro 20 mg PO DAILY 06/06/21 06/06/21 Allergies Allergy/AdvReac Type Severity Reaction Status Date / Time No Known Allergies Allergy Verified 06/05/21 16:41 Review of Systems Review of Systems: All systems reviewed & are unremarkable except as noted in HPI and below PMFSH Past Medical History Medical History Illicit drug use Social History Social History Smoking packs per day: 0.5 Smoking cigarettes per day: 10.0 Years smoked: 15 Smoking pack-years: 7.50 Smoking status: Current every day smoker Tobacco type: cigarettes Spiritual care concerns: No Exam Narrative: General appearance: Well-developed, well-nourished Skin: Normal color Head: Normocephalic, nontraumatic Eyes: Clear conjunctiva ENT: Oropharynx normal, ears normal, nose normal Neck: Supple, nontender Chest and respiratory: Airway patent, no respiratory distress, no accessory muscle use Heart: Regular rate/rhythm Abdomen: Soft, diffuse tenderness, quiet bowel sounds Vascular: Normal peripheral pulses, normal capillary refill. Musculoskeletal: Normal range of motion, nontender back Neurologic: Alert and oriented ?3, PLUGGER MAN is normal as tested, no gross motor deficit Course Consultations Consultation #1: Dr. Velasquez Date: 03/15/22 Time: 09:36 Vital Signs Vital signs: Vital Signs Pulse Oximetry 95 03/15/22 07:31 Temperature 36.9 C 03/15/22 07:32 Pulse Rate 130 H 03/15/22 07:32 Respiratory Rate 14 03/15/22 07:32 Blood Pressure 147/106 H 03/15/22 07:46 Pulse Oximetry 96 03/15/22 07:46 Medical Decision Making Differential Diagnosis Differential Diagnosis: Gastritis, esophagitis, pancreatitis, cholecystitis, appendicitis, constipation, diverticulitis Vital Signs Vital Signs: Vital Signs Pulse Oximetry 95 03/15/22 07:31 Temperature 36.9 C 03/15/22 07:32 Pulse Rate 130 H 03/15/22 07:32 Respiratory Rate 14 03/15/22 07:32 Blood Pressure 147/106 H 03/15/22 07:46 Pulse Oximetry 96 03/15/22 07:46 Lab Data 03/15/22 07:46 03/15/22 07:46 Labs: Lab Results 03/15/22 03/15/22 03/15/22 Range/Units 07:46 07:46 08:09 WBC 14.4 H (4.5-10.0) K/mm3 RBC 5.22 (4.6-6.20) M/mm3 Hgb 17.1 (14.0-18.0) g/dL Hct 47.4 (42.0-52.0) % MCV 90.8 (80-100) fl MCH 32.8 (26-34) pg MCHC 36.1 H (32-36) g/dl RDW 11.9 (11.5-14.5) % Plt Count 221 (150-375) k/mm3 MPV 9.7 (7.4-10.4) fl Immature Gran % (Auto) 0.4 (0-0.5) % Neut % (Auto) 88.0 H (45.5-73.1) % Lymph % (Auto) 4.0 L (18.3-44.2) % Dukes % (Auto) 7.5 (2.6-8.5) % Eos % (Auto) 0.0 (0-4.4) % Baso % (Auto) 0.1 L (0.2-1.2) % Lymph # (Auto) 0.57 L (0.9-3.2) K/mm3 Dukes # (Auto) 1.1 H (0.1-0.6) K/mm3 Eos # (Auto) 0.0 (0-0.3)
[2022-03-15 07:59] LABS: Basophils Percent Auto 0.1 % (0.2-1.2); Hematocrit 47.4 % (42.0-52.0); Hemoglobin 17.1 g/dL (14.0-18.0); Immature Granulocyte Absolute 0.06 K/mm3 (0.00-0.031); Immature Granulocyte Percent A 0.4 % (0-0.5); Lymphocytes Absolute Auto 0.57 K/mm3 (0.9-3.2); Mean Corpuscular HGB Conc 36.1 g/dl (32-36); Mean Corpuscular Hemoglobin 32.8 pg (26-34); Mean Corpuscular Volume 90.8 fl (80-100); Mean Platelet Volume 9.7 fl (7.4-10.4); Monocytes Absolute Auto 1.1 K/mm3 (0.1-0.6); Monocytes Percent Auto 7.5 % (2.6-8.5); Neutrophils Absolute Auto 12.7 K/mm3 (1.3-6.7); Platelet Count Result 221 k/mm3 (150-375); Red Blood Count 5.22 M/mm3 (4.6-6.20); Red Cell Distribution Width 11.9 % (11.5-14.5); White Blood Count 14.4 K/mm3 (4.5-10.0)
[2022-03-15 08:05] LABS: Alanine Aminotransferase 47 U/L (6-50); Albumin Level 4.1 g/dL (3.5-5.1); Alkaline Phosphatase 108 U/L (38-126); Anion Gap 11 mmol/L (8-16); Aspartate Amino Transferase 55 U/L (17-59); Bilirubin,Total 1.1 mg/dL (0.2-1.3); Blood Urea Nitrogen 5 mg/dL (9-20); Calcium 8.6 mg/dL (8.4-10.2); Carbon Dioxide 25 mmol/L (22-30); Chloride 98 mmol/L (98-107); Estimated CRCL calculation 168 ml/min; Estimated Glomerular Filt Rate > 60; Glucose 185 mg/dL (65-110); Lipase 2000 U/L (23-300); Potassium 2.8 mmol/L (3.4-5.0); Sodium 134 mmol/L (137-145)
[2022-03-15] MEDS: SODIUM CHLORIDE 0.9% IV 1,000 ML 999 ML IV CONT (08:07)
[2022-03-15] MEDS: ONDANSETRON INJ 4 MG/2 ML VIAL IV PUSH (08:10)
[2022-03-15] MEDS: HYDROmorphone HCL INJ (*CRX) 1 MG/ML SYR 0.5 MG IV PUSH ×4 (08:11→23:24)
[2022-03-15 08:33] LABS: Appearance Urine Clear (Clear); Bilirubin Urine 1+ (Negative); Blood Urine Trace-lysed (Negative); Color Urine Amber (Yellow); Glucose Urine UA Trace mg/dL (Negative); Ketones Urine 1+ mg/dL (Negative); Leukocyte Esterase Ur Negative LEU/UL (Negative); Nitrate Urine Negative (Negative); Protein Urine 3+ mg/dL (Negative); Specific Grav Ur 1.015 (1.001-1.035)
[2022-03-15 08:47] LABS: Add Urine Microscopic? YES; Mucus Urine Rare /lpf; RBC Urine 0-2 /hpf (0-2); Squamous Epithelial Cell Urine Rare /hpf (Few)
[2022-03-15 09:46] LABS: Influenza A QL RT-PCR Negative (Negative); Influenza B QL RT-PCR Negative (Negative); SARS-CoV-2 RNA PCR Negative
[2022-03-15] MEDS: POTASSIUM CHLORIDE INJ 40 MEQ in SODIUM CHLORIDE 0.9% IV 500 ML 130 MEQ IVPB (09:59)
[2022-03-15] MEDS: LORazepam INJ (*CRX) 2 MG/ML VIAL 1 MG IV PUSH ×2 (10:00→15:50)
--- NOTE | 2022-03-15 12:09 | PC.NURSE ---
This patient, Hilario Arechiga, was admitted to [facility] Surg Room 314-02 on 03/15/22 @ 1050. Patient/family oriented to hospital policies and general routines including ID bracelet, bed and alarms, visiting hours, pain management, procedures, bathroom and other care routines, personal items, smoking policy, room service/diet, and visiting hours. Information on how to activate the Rapid Response Team has been discussed. Patient/Family are encouraged to report perceived risks to care and to ask questions if they do not understand what they are told or what they should do.
--- NOTE | 2022-03-15 13:46 | WPDGICN ---
Assessment and Plan Assessment and plan (1) Acute pancreatitis: Code(s): K85.90 - Acute pancreatitis without necrosis or infection, unspecified Status: Acute Assessment and Plan: patient with acute pancreatitis. Manifested by elevated lipase as well as abnormal CT scan consistent with interstitial pancreatitis. This appears to be on the basis of alcohol abuse. Plan for supportive care. Initially patient should be NPO with IV fluid rehydration. Continue moderate monitor lipase, electrolytes and LFTs. Watch for signs of alcohol withdrawal in this patient. (2) Alcohol dependence: Code(s): F10.20 - Alcohol dependence, uncomplicated Status: Acute GI Consult Note Consult date/time: 03/15/22 13:46 Reason for consult: Alcohol induced pancreatitis HPI: Hilario Arechiga is a 31 year old male I am asked to see at the request of the emergency room. Patient reports over the last 2 days has had epigastric pain that is sharp will penetrate straight through to his back. He does notice discomfort diffusely throughout his abdomen. He has had some intermittent nausea vomiting. Patient denies any fever. He has never had pain like this before. Patient does drink alcohol on a daily basis. He has no prior history of gallstones. patient has a hospital admission previously for fentanyl toxicity. Family history is noncontributory. Review of Systems Review of Systems: Review of systems noncontributory. [facility] Past Medical History Medical History Illicit drug use Social History Social History Smoking packs per day: 0.5 Smoking cigarettes per day: 10.0 Years smoked: 15 Smoking pack-years: 7.50 Smoking status: Current every day smoker Tobacco type: cigarettes Spiritual care concerns: No Meds Home Medications and Allergies Home Medications Medication Instructions Recorded Confirmed Type Lexapro 20 mg PO DAILY 06/06/21 06/06/21 History amoxicillin 500 mg-potassium 1 tablet PO Q12H #20 tabs 06/08/21 Rx clavulanate 125 mg tablet (Augmentin) Allergies Allergy/AdvReac Type Severity Reaction Status Date / Time No Known Allergies Allergy Verified 06/05/21 16:41 Vital Signs Vital Signs - 24 hr 03/15/22 07:32 03/15/22 07:31 03/15/22 07:33 Temperature 98.4 F Pulse Rate 130 H Respiratory Rate 14 Blood Pressure 149/113 H Pulse Oximetry 94 95 95 03/15/22 07:45 03/15/22 07:46 03/15/22 07:49 Temperature Pulse Rate Respiratory Rate Blood Pressure 147/106 H Pulse Oximetry 95 96 97 03/15/22 08:00 03/15/22 08:01 03/15/22 08:16 Temperature Pulse Rate Respiratory Rate Blood Pressure 147/105 H 143/105 H Pulse Oximetry 96 95 93 03/15/22 08:19 03/15/22 08:44 03/15/22 08:45 Temperature Pulse Rate Respiratory Rate Blood Pressure Pulse Oximetry 95 97 98 03/15/22 09:00 03/15/22 09:15 03/15/22 09:30 Temperature Pulse Rate Respiratory Rate Blood Pressure Pulse Oximetry 95 97 95 03/15/22 10:00 03/15/22 10:15 03/15/22 10:30 Temperature Pulse Rate Respiratory Rate Blood Pressure Pulse Oximetry 94 96 96 03/15/22 10:45 03/15/22 11:07 03/15/22 11:22 Temperature Pulse Rate Respiratory Rate Blood Pressure Pulse Oximetry 97 97 95 03/15/22 13:07 Temperature 97.8 F Pulse Rate 122 H Respiratory Rate 14 Blood Pressure 139/88 Pulse Oximetry 100 Exam Narrative: Physical exam reveals patient be alert. Vital signs stable. HEENT exam is unremarkable patient is anicteric. Lungs are clear to auscultation and percussion. Heart is without murmur or extra sounds. Abdomen bowel sounds present soft tenderness located primarily in the mid epigastric area Results Labs 03/15/22 07:46 03/15/22 07:46 Labs: Short CBC 03/15/22 Range/Units 07:46 WBC 14.4 H (4.5-1
[2022-03-15] MEDS: THIAMINE HCL INJ 100 MG, FOLIC ACID INJ 1 MG, MULTIVITAMINS-12 INJ VIAL 1 5 ML, MULTIVI... IV CONT (15:20)
--- NOTE | 2022-03-15 20:00 | PM.IMHP ---
H&P: HPI History of Present Illness Date/Time: 03/15/22 20:00 Chief Complaint: Abdominal pain. Narrative: This is a pleasant 31-year-old male with history of alcohol abuse who presented to the emergency department for evaluation of abdominal pain. Over the last couple of weeks he has had intermittent episodes of epigastric pain which have been self-limiting, lasting perhaps an hour at a time. Unfortunately over the past 2 days the pain has become constant and more severe. He describes a sharp and shooting pain in the epigastric region, radiating through to the back. It is worse with palpation. He gives no significant alleviating factors. Last night he developed nausea and vomiting and he also reports having a subjective fever. Workup in the ED was significant for a white blood cell count of 14.4, sodium 134, potassium 2.8, lipase 2000. CT of the abdomen/pelvis showed acute interstitial pancreatitis and prominent diffuse hepatic steatosis and he is being admitted in this setting for supportive care. At the time my evaluation he is mildly tremulous but is comfortable. He drinks about a pint of whiskey a day and has done so for at least 7 months. He typically starts to have symptoms of withdrawal within about 6 hours after his last drink. He has no history of alcohol withdrawal seizures or pancreatitis. He denies chest pain, shortness a breath, hematemesis, melena, hematochezia, sweats, and hallucinations. Review of Systems Review of Systems: Twelve systems were reviewed. Subjective fever as detailed above. No recent cold or flu symptoms. He has occasional heartburn, worse recently. No history of GERD, gastritis, or ulcers. He denies melena and hematochezia. Except as documented, all other systems were reviewed and are negative. [facility] Past Medical History Medical History (Updated 03/15/22 @ 19:53 by Audra Evangelista PA-C) Alcohol abuse Hepatic steatosis History of opioid abuse Surgical History Surgical History (Updated 03/15/22 @ 19:49 by Audra Evangelista PA-C) No history of previous surgery Family History Family History (Updated 03/15/22 @ 19:50 by Audra Evangelista PA-C) Other Addiction Social History Social History (Updated 03/15/22 @ 19:51 by Audra Evangelista PA-C) Social History: Surrogate medical decision maker: Cristian Ambrocio, significant other. Code status: Full code. Smoking packs per day: 0.5 Smoking cigarettes per day: 10.0 Years smoked: 15 Smoking pack-years: 7.50 Smoking status: Current every day smoker Tobacco type: e-cigarettes/vaping Alcohol intake: current Alcohol use details: One pint of whiskey a day. Substance use: former Substance use type: does not use, former substance user and opiates Lack of Transportation: No Lack of Food: Never True Current Housing: I Have Housing Concerned About Future Housing: No Difficulty Paying Gas/Electric Bills: No Difficulty Paying for Meds: No Currently Unemployed: No Education: High School Diploma/GED Difficulty w/ Childcare or Family Care: No Additional living arrangements comments: Lives in [place] with significant other. Spiritual care concerns: No Meds Home Medications and Allergies Home Medications Medication Instructions Recorded Confirmed Type No Home Medications 03/15/22 03/15/22 History Allergies Allergy/AdvReac Type Severity Reaction Status Date / Time No Known Allergies Allergy Verified 03/15/22 13:51 Vital Signs Vital Signs - 24 hr 03/15/22 07:32 03/15/22 07:31 03/15/22 07:33 Temperature 98.4 F Pulse Rate 130 H Respiratory Rate 14 Blood Pressure 149/113 H Pulse Oximetry 94 95 95 Oxygen Delivery 03/15/22 07:45 03/15/22 07:46 03/15/22 07:49 Temperature Pulse Rate Respiratory Rate Blood Pressure 147/106 H Pulse Oximetry 95 96 97 Oxygen Delivery 03/15/22 08:00 03/15/22 08:01 03/15/22 08:16 Temperature Pulse Rate
[2022-03-15] MEDS: PANTOPRAZOLE SODIUM IV 40 MG VIAL IV PUSH (21:25)
[2022-03-15] MEDS: SODIUM CHLORIDE 0.9% IV 1,000 ML 150 ML IV CONT (21:25)
[2022-03-15] MEDS: chlordiazePOXIDE (*CRX) 25 MG CAPSULE PO (21:26)
[2022-03-15 21:49] LABS: Anion Gap 10 mmol/L (8-16); Blood Urea Nitrogen 5 mg/dL (9-20); Calcium 7.5 mg/dL (8.4-10.2); Carbon Dioxide 23 mmol/L (22-30); Chloride 102 mmol/L (98-107); Estimated CRCL calculation 168 ml/min; Estimated Glomerular Filt Rate > 60; Glucose 86 mg/dL (65-110); Potassium 4.3 mmol/L (3.4-5.0); Sodium 135 mmol/L (137-145)
[2022-03-16] MEDS: chlordiazePOXIDE (*CRX) 25 MG CAPSULE PO ×3 (03:40→18:21)
[2022-03-16 04:00] VITALS: BP 159/88; PULSE 126; RESP 18; TEMP 36.8; O2SAT 98
[2022-03-16] MEDS: LORazepam INJ (*CRX) 2 MG/ML VIAL 1 MG IV PUSH ×4 (04:31→18:27)
[2022-03-16 05:22] LABS: Glucose Point of Care 93 mg/dl (65-105)
[2022-03-16 07:12] LABS: Hematocrit 45.2 % (42.0-52.0); Hemoglobin 15.6 g/dL (14.0-18.0); Mean Corpuscular HGB Conc 34.5 g/dl (32-36); Mean Corpuscular Hemoglobin 32.9 pg (26-34); Mean Corpuscular Volume 95.4 fl (80-100); Mean Platelet Volume 10.3 fl (7.4-10.4); Platelet Count Result 163 k/mm3 (150-375); Red Blood Count 4.74 M/mm3 (4.6-6.20); Red Cell Distribution Width 12.1 % (11.5-14.5); White Blood Count 10.7 K/mm3 (4.5-10.0)
[2022-03-16] MEDS: HYDROmorphone HCL INJ (*CRX) 1 MG/ML SYR 0.5 MG IV PUSH ×3 (07:29→18:26)
[2022-03-16] MEDS: SODIUM CHLORIDE 0.9% IV 1,000 ML 150 ML IV CONT ×5 (07:29→20:55)
[2022-03-16 07:31] LABS: Anion Gap 7 mmol/L (8-16); Blood Urea Nitrogen 5 mg/dL (9-20); Calcium 7.9 mg/dL (8.4-10.2); Carbon Dioxide 28 mmol/L (22-30); Chloride 100 mmol/L (98-107); Estimated CRCL calculation 175 ml/min; Estimated Glomerular Filt Rate > 60; Glucose 83 mg/dL (65-110); Lipase 577 U/L (23-300); Potassium 3.7 mmol/L (3.4-5.0); Sodium 135 mmol/L (137-145)
[2022-03-16 08:00] VITALS: BP 131/92; PULSE 121; RESP 18; TEMP 36.8; O2SAT 98
--- NOTE | 2022-03-16 08:13 | PM.IMPN ---
Progress Note: A&P Assessment and Plan (1) Pancreatitis: Code(s): K85.90 - Acute pancreatitis without necrosis or infection, unspecified Status: Acute Assessment and Plan: NPO, IV fluids, pain control Secondary to alcohol abuse Appreciate GI consultation (2) Hypokalemia: Code(s): E87.6 - Hypokalemia Status: Acute Assessment and Plan: Replete and recheck (3) Alcohol abuse: Code(s): F10.10 - Alcohol abuse, uncomplicated Status: Acute Assessment and Plan: Care coordination consultation for resources Alcohol cessation recommended Thiamine and banana bag daily Monitor CIWA, started on Librium 25 mg every 8 hours, Ativan p.r.n. CIWA was 12 at 4 am, goal of less than 8, will increase Librium to every 6 hours, hydroxyzine 50 mg every 6 hours as needed for anxiety, clonidine 0.1 mg q.h.s. for insomnia (4) Hepatic steatosis: Code(s): K76.0 - Fatty (change of) liver, not elsewhere classified Status: Acute (5) Asymptomatic proteinuria: Code(s): R80.9 - Proteinuria, unspecified Status: Acute Assessment and Plan: Follow-up outpatient Plan DVT prophylaxis with SCDs GI prophylaxis not indicated Code status full code Subjective Date/time seen: 03/16/22 08:13 Interval history: No overnight events noted. No chest pain or shortness of breath. No nausea, vomiting or diarrhea. No fevers or chills. Somewhat tremulous and anxious. 98% on room air Review of Systems Review of Systems: 12 point review of systems was assessed and was negative except as noted in the HPI Exam Narrative: General: No acute distress, alert and oriented per baseline HEENT: Atraumatic, normocephalic, mucous membranes moist CV: Regular rate and rhythm, S1, S2 Lungs: Clear to auscultation bilaterally, no rales or crackles noted, no wheezes, good air entry Abdomen: Soft, nontender, nondistended Extremities: Normal to inspection Skin: No rashes noted, no lesions or wounds seen Psych: Euthymic, normal affect Objective Data Vital Signs Vital Signs: Vital Signs - 24 hr 03/15/22 08:16 03/15/22 08:19 03/15/22 08:44 Temperature Pulse Rate Respiratory Rate Blood Pressure 143/105 H Pulse Oximetry 93 95 97 Oxygen Delivery 12/07/22 08:45 03/15/22 09:00 03/15/22 09:15 Temperature Pulse Rate Respiratory Rate Blood Pressure Pulse Oximetry 98 95 97 Oxygen Delivery 03/15/22 09:30 03/15/22 10:00 03/15/22 10:15 Temperature Pulse Rate Respiratory Rate Blood Pressure Pulse Oximetry 95 94 96 Oxygen Delivery 03/15/22 10:30 03/15/22 10:45 03/15/22 11:07 Temperature Pulse Rate Respiratory Rate Blood Pressure Pulse Oximetry 96 97 97 Oxygen Delivery 03/15/22 11:22 03/15/22 13:07 03/15/22 14:00 Temperature 97.8 F Pulse Rate 122 H Respiratory Rate 14 Blood Pressure 139/88 Pulse Oximetry 95 100 Oxygen Delivery Room Air 03/15/22 21:33 03/15/22 20:00 03/15/22 20:00 Temperature 98.2 F Pulse Rate 117 H 117 H Respiratory Rate 18 Blood Pressure 135/95 H 135/95 H Pulse Oximetry 97 97 Oxygen Delivery Room Air 03/15/22 23:39 03/16/22 04:00 03/16/22 04:00 Temperature 98.3 F Pulse Rate 126 H Respiratory Rate 18 Blood Pressure 141/93 H 159/88 H 159/88 H Pulse Oximetry 98 Oxygen Delivery 03/16/22 07:57 03/16/22 08:00 Temperature 98.2 F Pulse Rate 121 H Respiratory Rate 18 Blood Pressure 131/92 H Pulse Oximetry 98 Oxygen Delivery Room Air Intake/Output Intake/Output: Intake & Output 03/13/22 03/14/22 03/15/22 03/16/22 23:59 23:59 23:59 23:59 Intake Total 1520 1000 Output Total 800 625 Balance 720 375 Meds/Results Medications: Active Medications Generic Name Dose Route Start Last Admin Trade Name Freq PRN Reason Stop Dose Admin Chlordiazepoxide HCl 25 mg 03/15/22 20:00 03/16/22 03:40 Chlordiazepo
[2022-03-16] MEDS: PANTOPRAZOLE SODIUM IV 40 MG VIAL IV PUSH ×2 (08:37→20:44)
--- NOTE | 2022-03-16 08:39 | WPDGIPROGNO ---
Progress Note: A&P Assessment and Plan (1) Pancreatitis: Code(s): K85.90 - Acute pancreatitis without necrosis or infection, unspecified Status: Acute Assessment and Plan: Patient with acute interstitial pancreatitis on the basis of alcohol use. Plan for supportive care. Continue to monitor lipase daily. Patient still has significant discomfort I would be slow to over implement liquid diet. Perhaps tomorrow morning and advance slowly to low-fat diet. Long-term alcohol avoidance strongly encouraged. (2) Alcohol abuse: Code(s): F10.10 - Alcohol abuse, uncomplicated Status: Acute Assessment and Plan: Alcohol appears to be etiology for pancreatitis. Plan for alcohol avoidance in the future if at all possible. Consider support group. Subjective Date/time seen: 03/16/22 08:39 Patient alert, somewhat more comfortable today. Still complains of abdominal pain. Localized primarily in the mid epigastric area. No vomiting at this time. Review of Systems Review of Systems: Review of systems noncontributory. Exam Narrative: Physical exam reveals patient to be alert. Vital signs stable. He is anicteric, afebrile. Lungs are clear. Heart without murmur. Abdomen bowel sounds present abdomen is soft. Discomfort localized to the midepigastric area. Objective Data Vital Signs Vital Signs: Vital Signs - 24 hr 03/15/22 08:44 03/15/22 08:45 03/15/22 09:00 Temperature Pulse Rate Respiratory Rate Blood Pressure Pulse Oximetry 97 98 95 Oxygen Delivery 03/15/22 09:15 03/15/22 09:30 03/15/22 10:00 Temperature Pulse Rate Respiratory Rate Blood Pressure Pulse Oximetry 97 95 94 Oxygen Delivery 03/15/22 10:15 03/15/22 10:30 03/15/22 10:45 Temperature Pulse Rate Respiratory Rate Blood Pressure Pulse Oximetry 96 96 97 Oxygen Delivery 03/15/22 11:07 03/15/22 11:22 03/15/22 13:07 Temperature 97.8 F Pulse Rate 122 H Respiratory Rate 14 Blood Pressure 139/88 Pulse Oximetry 97 95 100 Oxygen Delivery 03/15/22 14:00 03/15/22 21:33 03/15/22 20:00 Temperature 98.2 F Pulse Rate 117 H Respiratory Rate 18 Blood Pressure 135/95 H 135/95 H Pulse Oximetry 97 Oxygen Delivery Room Air 03/15/22 20:00 03/15/22 23:39 03/16/22 04:00 Temperature Pulse Rate 117 H Respiratory Rate Blood Pressure 141/93 H 159/88 H Pulse Oximetry 97 Oxygen Delivery Room Air 03/16/22 04:00 03/16/22 07:57 03/16/22 08:00 Temperature 98.3 F 98.2 F Pulse Rate 126 H 121 H Respiratory Rate 18 18 Blood Pressure 159/88 H 131/92 H Pulse Oximetry 98 98 Oxygen Delivery Room Air Intake/Output Intake/Output: Intake & Output 03/13/22 03/14/22 03/15/22 03/16/22 23:59 23:59 23:59 23:59 Intake Total 1520 3000 Output Total 800 625 Balance 720 4585 Meds/Results Medications: Active Medications Generic Name Dose Route Start Last Admin Trade Name Freq PRN Reason Stop Dose Admin Chlordiazepoxide HCl 25 mg 03/16/22 12:00 Chlordiazepoxide (*Crx) 25 Mg Capsule PO Q6HR VADIM Clonidine HCl 0.1 mg 03/16/22 21:00 Clonidine Hcl 0.1 Mg Tablet PO QHS VADIM Hydromorphone HCl 0.5 mg 03/15/22 09:39 03/16/22 07:29 Hydromorphone Hcl Inj (*Crx) 1 Mg/Ml Syr IV PUSH 0.5 mg Q4H PRN Administration Pain Rated 7-10 Hydroxyzine HCl 50 mg 03/16/22 08:23 Hydroxyzine Hcl 25 Mg Tablet PO Q6H PRN Alcohol Withdrawal/anxiety Acetaminophen 1,000 mg in 100 mls @ 400 mls/hr 03/15/22 09:39 Ofirmev 1,000 Mg Ivpb IVPB 03/16/22 09:38 Q6H PRN Mild Pain (1-3) or Fever Sodium Chloride 1,000 mls @ 150 mls/hr 03/15/22 09:40 03/16/22 08:39 Normal Saline Iv IV CONT 150 mls/hr .Q6H40M VADIM Administration Lorazepam 1 mg 03/15/22 19:59 03/16/22 04:31 Lorazepam Inj (*Crx) 2 Mg/Ml Vial IV PUSH 1 mg Q2H PRN Administration Anxiety Ondanset
[2022-03-16 11:46] LABS: Glucose Point of Care 77 mg/dl (65-105)
[2022-03-16 16:00] VITALS: BP 128/86; PULSE 112; RESP 18; TEMP 36.1; O2SAT 99
[2022-03-16 18:16] LABS: Glucose Point of Care 76 mg/dl (65-105)
[2022-03-16] MEDS: ESCITALOPRAM OXALATE 10 MG TABLET 20 MG PO (20:44)
[2022-03-16] MEDS: cloNIDine HCL 0.1 MG TABLET PO (20:44)
[2022-03-16 21:31] VITALS: BP 133/85; PULSE 112; RESP 14; TEMP 37.3; O2SAT 95
[2022-03-17] MEDS: chlordiazePOXIDE (*CRX) 25 MG CAPSULE PO ×3 (01:27→17:32)
[2022-03-17] MEDS: HYDROmorphone HCL INJ (*CRX) 1 MG/ML SYR 0.5 MG IV PUSH ×4 (01:27→21:14)
[2022-03-17] MEDS: SODIUM CHLORIDE 0.9% IV 1,000 ML 150 ML IV CONT ×2 (03:54→21:07)
[2022-03-17 06:00] VITALS: BP 148/88; PULSE 104; RESP 15; TEMP 32.9; O2SAT 97
[2022-03-17 07:12] LABS: Basophils Percent Auto 0.3 % (0.2-1.2); Eosinophils Percent Auto 0.2 % (0-4.4); Hemoglobin 15.2 g/dL (14.0-18.0); Immature Granulocyte Absolute 0.05 K/mm3 (0.00-0.031); Immature Granulocyte Percent A 0.5 % (0-0.5); Lymphocytes Absolute Auto 1.31 K/mm3 (0.9-3.2); Lymphocytes Percent Auto 12.2 % (18.3-44.2); Mean Corpuscular HGB Conc 33.8 g/dl (32-36); Mean Corpuscular Hemoglobin 33.5 pg (26-34); Mean Corpuscular Volume 99.1 fl (80-100); Mean Platelet Volume 10.4 fl (7.4-10.4); Monocytes Percent Auto 8.9 % (2.6-8.5); Neutrophils Absolute Auto 8.4 K/mm3 (1.3-6.7); Neutrophils Percent Auto 77.9 % (45.5-73.1); Platelet Count Result 168 k/mm3 (150-375); Red Blood Count 4.54 M/mm3 (4.6-6.20); Red Cell Distribution Width 11.9 % (11.5-14.5); White Blood Count 10.7 K/mm3 (4.5-10.0)
[2022-03-17 07:25] LABS: Alanine Aminotransferase 39 U/L (6-50); Albumin Level 3.6 g/dL (3.5-5.1); Alkaline Phosphatase 99 U/L (38-126); Anion Gap 10 mmol/L (8-16); Aspartate Amino Transferase 57 U/L (17-59); Bilirubin,Total 1.6 mg/dL (0.2-1.3); Blood Urea Nitrogen 6 mg/dL (9-20); Calcium 7.9 mg/dL (8.4-10.2); Carbon Dioxide 21 mmol/L (22-30); Chloride 103 mmol/L (98-107); Estimated CRCL calculation 206 ml/min; Estimated Glomerular Filt Rate > 60; Glucose 72 mg/dL (65-110); Potassium 3.6 mmol/L (3.4-5.0); Sodium 134 mmol/L (137-145)
--- NOTE | 2022-03-17 07:46 | WPDGIPROGNO ---
Progress Note: A&P Assessment and Plan (1) Acute pancreatitis: Code(s): K85.90 - Acute pancreatitis without necrosis or infection, unspecified Status: Acute Assessment and Plan: Patient with acute interstitial pancreatitis secondary to alcohol abuse. Plan to continue supportive care. Start allowing diet and advance as tolerated. Continue to monitor lipase. Increase activity getting out of bed is encouraged. Long-term alcohol avoidance important. (2) Alcohol abuse: Code(s): F10.10 - Alcohol abuse, uncomplicated Status: Acute Assessment and Plan: Patient will need alcohol support group. Patient should continue to avoid alcohol ultimately. Subjective Date/time seen: 03/17/22 07:46 Patient alert this morning. Less pain in his abdomen noted. Still feels somewhat bloated. Modest discomfort mid abdomen. Still requesting pain medications. Patient continues to have bowel movements. Review of Systems Review of Systems: Review of systems noncontributory. Exam Narrative: Physical exam reveals patient to be alert. Vital signs stable. HEENT exam is unremarkable. Patient anicteric. Lungs are clear. Heart without murmur. Abdomen bowel sounds present soft no organomegaly. No masses noted. Mild epigastric tenderness. Objective Data Vital Signs Vital Signs: Vital Signs - 24 hr 03/16/22 07:57 03/16/22 08:00 03/16/22 16:00 Temperature 98.2 F 96.9 F L Pulse Rate 121 H 112 H Respiratory Rate 18 18 Blood Pressure 131/92 H 128/86 Pulse Oximetry 98 99 Oxygen Delivery Room Air 03/16/22 21:31 03/17/22 06:00 Temperature 99.1 F 91.3 F L Pulse Rate 112 H 104 H Respiratory Rate 14 15 Blood Pressure 133/85 148/88 H Pulse Oximetry 95 97 Oxygen Delivery Intake/Output Intake/Output: Intake & Output 03/14/22 03/15/22 03/16/22 03/17/22 23:59 23:59 23:59 23:59 Intake Total 1520 5000 1000 Output Total 800 2425 Balance 720 2575 1000 Meds/Results Medications: Active Medications Generic Name Dose Route Start Last Admin Trade Name Freq PRN Reason Stop Dose Admin Chlordiazepoxide HCl 25 mg 03/16/22 18:00 03/17/22 01:27 Chlordiazepoxide (*Crx) 25 Mg Capsule PO 25 mg Q8H VADIM Administration Clonidine HCl 0.1 mg 03/16/22 21:00 03/16/22 20:44 Clonidine Hcl 0.1 Mg Tablet PO 0.1 mg QHS VADIM Administration Escitalopram Oxalate 20 mg 03/16/22 21:00 03/16/22 20:44 Escitalopram Oxalate 10 Mg Tablet PO 20 mg QHS VADIM Administration Hydromorphone HCl 0.5 mg 03/15/22 09:39 03/17/22 01:27 Hydromorphone Hcl Inj (*Crx) 1 Mg/Ml Syr IV PUSH 0.5 mg Q4H PRN Administration Pain Rated 7-10 Hydroxyzine HCl 50 mg 03/16/22 08:23 Hydroxyzine Hcl 25 Mg Tablet PO Q6H PRN Alcohol Withdrawal/anxiety Sodium Chloride 1,000 mls @ 150 mls/hr 03/15/22 09:40 03/17/22 03:54 Normal Saline Iv IV CONT 150 mls/hr .Q6H40M VADIM Administration Lorazepam 1 mg 03/15/22 19:59 03/16/22 18:27 Lorazepam Inj (*Crx) 2 Mg/Ml Vial IV PUSH 1 mg Q2H PRN Administration Anxiety Pantoprazole Sodium 40 mg 03/15/22 21:00 03/16/22 20:44 Pantoprazole Sodium Iv 40 Mg Vial IV PUSH 40 mg Q12HR VADIM Administration Radiology Results: ITS Impressions Abdomen/Pelvis CT 03/15/22 08:43 IMPRESSION: 1. Acute interstitial pancreatitis centered at the uncinate process. 2. Prominent diffuse hepatic steatosis. Labs Labs: Laboratory Results - last 24 hr 03/16/22 03/16/22 03/17/22 11:44 18:09 06:42 WBC 10.7 H RBC 4.54 L Hgb 15.2 Hct 45.0 MCV 99.1 MCH 33.5 MCHC 33.8 RDW 11.9 Plt Count 168 MPV 10.4 Immature Gran % (Auto) 0.5 Neut % (Auto) 77.9 H Lymph % (Auto) 12.2 L [place] % (Auto) 8.9 H Eos % (Auto) 0.2 Baso % (Auto) 0.3 Lymph # (Auto) 1.31 [place] # (Auto) 1.0 H Eos # (Auto) 0.0 Baso # (Auto) 0.0 Abs Immat Gran (auto) 0.05 H Ab
[2022-03-17 08:19] LABS: Lipase 936 U/L (23-300)
[2022-03-17] MEDS: PANTOPRAZOLE SODIUM IV 40 MG VIAL IV PUSH ×2 (08:30→21:08)
[2022-03-17] MEDS: LORazepam INJ (*CRX) 2 MG/ML VIAL 1 MG IV PUSH ×2 (08:36→17:30)
--- NOTE | 2022-03-17 09:23 | PM.IMPN ---
Progress Note: A&P Assessment and Plan (1) Pancreatitis: Code(s): K85.90 - Acute pancreatitis without necrosis or infection, unspecified Status: Acute Assessment and Plan: NPO, IV fluids, pain control Secondary to alcohol abuse Appreciate GI consultation Improving, still requiring pain meds (2) Hypokalemia: Code(s): E87.6 - Hypokalemia Status: Acute Assessment and Plan: Replete and recheck (3) Alcohol abuse: Code(s): F10.10 - Alcohol abuse, uncomplicated Status: Acute Assessment and Plan: Care coordination consultation for resources Alcohol cessation recommended Thiamine daily Monitor CIWA, Librium 25 mg every 8 hours, Ativan p.r.n. CIWA was 0,2,3 overnight, 13 this morning, will monitor CIWA later before making dose changes based on one CIWA Cont hydroxyzine 50 mg every 6 hours, clonidine 0.1 mg q.h.s. for insomnia, and start back on lexapro for underlying depression/anxiety disorder complicating alcohol addiction (4) Hepatic steatosis: Code(s): K76.0 - Fatty (change of) liver, not elsewhere classified Status: Acute Assessment and Plan: F/u outpatient, avoid alcohol (5) Asymptomatic proteinuria: Code(s): R80.9 - Proteinuria, unspecified Status: Acute Assessment and Plan: Follow-up outpatient Check urine microalbumin (6) Hyperbilirubinemia: Code(s): E80.6 - Other disorders of bilirubin metabolism Status: Acute Assessment and Plan: Unsure of etiology, check direct bilirubin, LDH, haptoglobin and reticulocyte count Possibly hemolytic process? Plan DVT prophylaxis with SCDs GI prophylaxis with PPI Code status full code Subjective Date/time seen: 03/17/22 09:23 Interval history: CIWA was consistently under 8 overnight, bumped up to 13 this morning and received ativan 1 mg. Still requiring dilaudid for abdominal pain every 6-8 hours. Feeling much less tremulous and anxious than yesterday. Review of Systems Review of Systems: 12 point review of systems was assessed and was negative except as noted in the HPI Exam Narrative: General: No acute distress, alert and oriented per baseline HEENT: Atraumatic, normocephalic, mucous membranes moist CV: Regular rate and rhythm, S1, S2 Lungs: Clear to auscultation bilaterally, no rales or crackles noted, no wheezes, good air entry Abdomen: Soft, diffusely tender, nondistended, no rebounding or guarding Extremities: Normal to inspection Skin: No rashes noted, no lesions or wounds seen Psych: Euthymic, normal affect Objective Data Vital Signs Vital Signs: Vital Signs - 24 hr 03/16/22 16:00 03/16/22 21:31 03/17/22 06:00 Temperature 96.9 F L 99.1 F 91.3 F L Pulse Rate 112 H 112 H 104 H Respiratory Rate 18 14 15 Blood Pressure 128/86 133/85 148/88 H Pulse Oximetry 99 95 97 Intake/Output Intake/Output: Intake & Output 03/14/22 03/15/22 03/16/22 03/17/22 23:59 23:59 23:59 23:59 Intake Total 1520 5000 1000 Output Total 800 2425 800 Balance 720 2575 200 Meds/Results Medications: Active Medications Generic Name Dose Route Start Last Admin Trade Name Freq PRN Reason Stop Dose Admin Chlordiazepoxide HCl 25 mg 03/16/22 18:00 03/17/22 01:27 Chlordiazepoxide (*Crx) 25 Mg Capsule PO 25 mg Q8H VADIM Administration Clonidine HCl 0.1 mg 03/16/22 21:00 03/16/22 20:44 Clonidine Hcl 0.1 Mg Tablet PO 0.1 mg QHS VADIM Administration Escitalopram Oxalate 20 mg 03/16/22 21:00 03/16/22 20:44 Escitalopram Oxalate 10 Mg Tablet PO 20 mg QHS VADIM Administration Hydromorphone HCl 0.5 mg 03/15/22 09:39 03/17/22 08:30 Hydromorphone Hcl Inj (*Crx) 1 Mg/Ml Syr IV PUSH 0.5 mg Q4H PRN Administration Pain Rated 7-10 Hydroxyzine HCl 50 mg 03/16/22 08:23 Hydroxyzine Hcl 25 Mg Tablet PO Q6H PRN Alcohol Withdrawal/anxiety Sodium Chloride 1,000 mls @ 150 mls/hr 03/15/22 09:40 03/17/22
[2022-03-17 09:51] LABS: Immature Reticulocyte Fraction 18.4 % (3.0-15.9); Reticulocyte Hemoglobin Conten 35.8 pg (28.2-35.7); Reticulocyte Percent 1.97 % (0.7-4.3); Reticulocytes Absolute 0.09 B/L (32.2-175.7)
[2022-03-17 10:02] LABS: Lactate Dehydrogenase 208 U/L (120-246)
[2022-03-17] MEDS: THIAMINE HCL INJ 100 MG, FOLIC ACID INJ 1 MG, MULTIVITAMINS-12 INJ VIAL 1 5 ML, MULTIVI... IV CONT (10:35)
[2022-03-17] MEDS: hydrOXYzine HCL 25 MG TABLET 50 MG PO ×2 (11:34→17:31)
[2022-03-17 12:19] LABS: Glucose Point of Care 127 mg/dl (65-105)
[2022-03-17 14:00] VITALS: BP 134/88; PULSE 96; RESP 16; TEMP 37.4; O2SAT 95
[2022-03-17 14:35] LABS: Creatinine Urine 22.8 mg/dL
[2022-03-17 15:02] LABS: Microalbumin Urine Random < 6.0 mg/L (0-16.7)
[2022-03-17 18:34] LABS: Glucose Point of Care 119 mg/dl (65-105)
[2022-03-17 21:07] VITALS: BP 143/98; PULSE 107; RESP 18; TEMP 36.6; O2SAT 99
[2022-03-17] MEDS: cloNIDine HCL 0.1 MG TABLET PO (21:29)
[2022-03-17] MEDS: ESCITALOPRAM OXALATE 10 MG TABLET 20 MG PO (21:30)
[2022-03-18] MEDS: LORazepam INJ (*CRX) 2 MG/ML VIAL 1 MG IV PUSH ×3 (00:32→20:55)
[2022-03-18] MEDS: hydrOXYzine HCL 25 MG TABLET 50 MG PO ×4 (00:37→17:21)
[2022-03-18] MEDS: chlordiazePOXIDE (*CRX) 25 MG CAPSULE PO ×3 (02:23→17:21)
[2022-03-18] MEDS: HYDROmorphone HCL INJ (*CRX) 1 MG/ML SYR 0.5 MG IV PUSH ×4 (02:42→20:55)
[2022-03-18] MEDS: SODIUM CHLORIDE 0.9% IV 1,000 ML 150 ML IV CONT (04:09)
[2022-03-18 06:00] VITALS: BP 136/94; PULSE 100; RESP 16; TEMP 36.6; O2SAT 97
[2022-03-18 08:22] LABS: Alanine Aminotransferase 35 U/L (6-50); Albumin Level 2.7 g/dL (3.5-5.1); Alkaline Phosphatase 92 U/L (38-126); Anion Gap 6 mmol/L (8-16); Aspartate Amino Transferase 52 U/L (17-59); Blood Urea Nitrogen 4 mg/dL (9-20); Calcium 7.4 mg/dL (8.4-10.2); Carbon Dioxide 22 mmol/L (22-30); Chloride 106 mmol/L (98-107); Estimated CRCL calculation 206 ml/min; Estimated Glomerular Filt Rate > 60; Glucose 90 mg/dL (65-110); Lipase 1551 U/L (23-300); Potassium 3.5 mmol/L (3.4-5.0); Sodium 134 mmol/L (137-145)
[2022-03-18 08:41] LABS: Basophils Percent Auto 0.5 % (0.2-1.2); Eosinophils Absolute Auto 0.1 K/mm3 (0-0.3); Hematocrit 41.5 % (42.0-52.0); Hemoglobin 14.2 g/dL (14.0-18.0); Immature Granulocyte Absolute 0.05 K/mm3 (0.00-0.031); Immature Granulocyte Percent A 0.6 % (0-0.5); Lymphocytes Absolute Auto 1.15 K/mm3 (0.9-3.2); Lymphocytes Percent Auto 14.1 % (18.3-44.2); Mean Corpuscular HGB Conc 34.2 g/dl (32-36); Mean Corpuscular Hemoglobin 33.3 pg (26-34); Mean Corpuscular Volume 97.2 fl (80-100); Mean Platelet Volume 10.4 fl (7.4-10.4); Monocytes Absolute Auto 0.9 K/mm3 (0.1-0.6); Monocytes Percent Auto 11.3 % (2.6-8.5); Neutrophils Absolute Auto 5.9 K/mm3 (1.3-6.7); Neutrophils Percent Auto 72.5 % (45.5-73.1); Platelet Count Result 189 k/mm3 (150-375); Red Blood Count 4.27 M/mm3 (4.6-6.20); White Blood Count 8.2 K/mm3 (4.5-10.0)
[2022-03-18] MEDS: PANTOPRAZOLE 40 MG TABLET PO (09:01)
[2022-03-18] MEDS: THIAMINE HCL 100 MG TABLET PO (09:01)
[2022-03-18] MEDS: MULTIVIT/MIN/PREN/FOL AC/IRON TABLET 1 TAB PO (09:01)
--- NOTE | 2022-03-18 10:41 | WPDGIPROGNO ---
Progress Note: A&P Assessment and Plan (1) Pancreatitis: Code(s): K85.90 - Acute pancreatitis without necrosis or infection, unspecified Status: Acute Assessment and Plan: Patient with alcohol induced pancreatitis. His lipase remains elevated at 1500 today. Plan to allow liquid diet. May go slow with advancing diet presently. Ultimately on a low-fat diet. (2) Alcohol abuse: Code(s): F10.10 - Alcohol abuse, uncomplicated Status: Acute Assessment and Plan: Strict alcohol avoidance strongly encouraged for this patient. I suspect he drinks more than he lets on. Subjective Date/time seen: 03/18/22 10:41 Patient alert. States he still has pain. But appears much more comfortable. He takes his pain medications regularly. Continues to have bowel movements. Tolerating liquid diet without too much difficulty at present. This does not appear to have aggravated his pain to any significant degree. Review of Systems Review of Systems: Review of systems noncontributory. Exam Narrative: Physical exam reveals patient to be alert. Vital signs stable. HEENT exam reveals no icterus. Patient afebrile. Lungs are clear. Heart without murmur. Abdomen bowel sounds present soft flat no localized tenderness a present. Has been 3 hours since last pain injection. Objective Data Vital Signs Vital Signs: Vital Signs - 24 hr 03/17/22 14:00 03/17/22 21:07 03/17/22 20:00 Temperature 99.4 F 97.9 F Pulse Rate 96 107 H Respiratory Rate 16 18 Blood Pressure 134/88 143/98 H Pulse Oximetry 95 99 Oxygen Delivery Room Air 03/18/22 06:00 03/18/22 09:00 Temperature 98 F Pulse Rate 100 Respiratory Rate 16 Blood Pressure 136/94 H Pulse Oximetry 97 Oxygen Delivery Room Air Intake/Output Intake/Output: Intake & Output 03/15/22 03/16/22 03/17/22 03/18/22 23:59 23:59 23:59 23:59 Intake Total 1520 5000 3220 1000 Output Total 800 2425 1800 700 Balance 720 2575 1420 300 Meds/Results Medications: Active Medications Generic Name Dose Route Start Last Admin Trade Name Freq PRN Reason Stop Dose Admin Chlordiazepoxide HCl 25 mg 03/16/22 18:00 03/18/22 09:00 Chlordiazepoxide (*Crx) 25 Mg Capsule PO 25 mg Q8H VADIM Administration Escitalopram Oxalate 20 mg 03/16/22 21:00 03/17/22 21:30 Escitalopram Oxalate 10 Mg Tablet PO 20 mg QHS VADIM Administration Hydromorphone HCl 0.5 mg 03/15/22 09:39 03/18/22 09:05 Hydromorphone Hcl Inj (*Crx) 1 Mg/Ml Syr IV PUSH 0.5 mg Q4H PRN Administration Pain Rated 7-10 Hydroxyzine HCl 50 mg 03/17/22 12:00 03/18/22 05:44 Hydroxyzine Hcl 25 Mg Tablet PO 50 mg Q6HR VADIM Administration Lorazepam 1 mg 03/15/22 19:59 03/18/22 00:32 Lorazepam Inj (*Crx) 2 Mg/Ml Vial IV PUSH 1 mg Q2H PRN Administration Anxiety Pantoprazole Sodium 40 mg 03/18/22 09:00 03/18/22 09:01 Pantoprazole 40 Mg Tablet PO 40 mg QAM VADIM Administration Vit/Calcium/Iron/Folic Ac 1 tab 03/18/22 09:00 03/18/22 09:01 Multivit/Min/Pren/Fol Ac/Iron Tablet PO 1 tab DAILY VADIM Administration Thiamine HCl 100 mg 03/18/22 09:00 03/18/22 09:01 Thiamine Hcl 100 Mg Tablet PO 100 mg QAM VADIM Administration Radiology Results: ITS Impressions Abdomen/Pelvis CT 03/15/22 08:43 IMPRESSION: 1. Acute interstitial pancreatitis centered at the uncinate process. 2. Prominent diffuse hepatic steatosis. Labs Labs: Laboratory Results - last 24 hr 03/17/22 03/17/22 03/17/22 12:13 13:34 18:23 WBC RBC Hgb Hct MCV MCH MCHC RDW Plt Count MPV Immature Gran % (Auto) Neut % (Auto) Lymph % (Auto) [place] % (Auto) Eos % (Auto) Baso % (Auto) Lymph # (Auto) [place] # (Auto) Eos # (Auto) Baso # (Auto) Abs Immat Gran (auto) Absolute Neuts (auto) Absolute Nucleated RBC Nucleated RBC % Sodium [place]
[2022-03-18 15:03] VITALS: BP 125/91; PULSE 112; RESP 20; TEMP 37.3; O2SAT 96
--- NOTE | 2022-03-18 18:20 | PM.IMPN ---
Progress Note: A&P Assessment and Plan (1) Pancreatitis: Code(s): K85.90 - Acute pancreatitis without necrosis or infection, unspecified Status: Acute Assessment and Plan: Patient presents with abdominal pain found to have pancreatitis. Pancreatitis felt secondary to alcohol abuse. Lipase was 2000 and improved initially but now has trended back upward 1500. He is referred pain. His diet has been advanced but has pain with eating. Will check right upper quadrant ultrasound to exclude gallstones. Check triglyceride level. He has been educated about the benefits of abstaining from alcohol use. Consider repeating CT scan. (2) Alcohol abuse: Code(s): F10.10 - Alcohol abuse, uncomplicated Status: Acute Assessment and Plan: Patient was educated about the benefits of abstaining from alcohol. CIWA protocol has been started. Continue scheduled Librium. He is also on scheduled Atarax. Thiamine and multivitamin started. Ativan available as needed for elevated CIWA score. Will stop clonidine. Lexapro has been resumed. He is still tachycardic which could be related to pancreatitis and not from withdrawal.Care coordination consultation for resources (3) Hyperbilirubinemia: Code(s): E80.6 - Other disorders of bilirubin metabolism Status: Acute Assessment and Plan: Bili up to 1.6. It was all indirect. Related to above? More likely Gilbert's. -bili normal now -check RUQ US (4) Hepatic steatosis: Code(s): K76.0 - Fatty (change of) liver, not elsewhere classified Status: Acute Assessment and Plan: Related to alcohol use? -avoid alcohol -check lipid panel -follow up as outpatient (5) Asymptomatic proteinuria: Code(s): R80.9 - Proteinuria, unspecified Status: Acute Assessment and Plan: Probably related to above. Will need follow-up as outpatient (6) Hypokalemia: Code(s): E87.6 - Hypokalemia Status: Acute Assessment and Plan: Potassium was low and has been replaced -follow Plan DVT prophylaxis with SCDs GI prophylaxis with PPI Code status full code Subjective Date/time seen: 03/18/22 18:20 Interval history: 31yo male with hx of alcoholism here for abdominal pain and found to have pancreatitis. Assuming care. Chart reviewed. Slept off/on. Abdpain 08/16 and was worse after eating. Exam Narrative: AF 99.1 125/91 112 20 96% ra Gen - NARD Chest - CTA bilaterally except decreased BS in the right base, nml RR CV - tachycardic, regular Abd - Soft, ND, referred pain to epigastric region Ext - No pedal edema Neuro - Alert and oriented. Nonfocal exam. Psych - Nml mood and affect Skin - Warm and dry Objective Data Vital Signs Vital Signs: Vital Signs - 24 hr 03/17/22 21:07 03/17/22 20:00 03/18/22 06:00 Temperature 97.9 F 98 F Pulse Rate 107 H 100 Respiratory Rate 18 16 Blood Pressure 143/98 H 136/94 H Pulse Oximetry 99 97 Oxygen Delivery Room Air 03/18/22 09:00 03/18/22 15:03 Temperature 99.1 F Pulse Rate 112 H Respiratory Rate 20 Blood Pressure 125/91 H Pulse Oximetry 96 Oxygen Delivery Room Air Intake/Output Intake/Output: Intake & Output 03/15/22 03/16/22 03/17/22 03/18/22 23:59 23:59 23:59 23:59 Intake Total 1520 5000 3220 1400 Output Total 800 2425 1800 1450 Balance 720 2575 1420 -50 Meds/Results Medications: Active Medications Generic Name Dose Route Start Last Admin Trade Name Freq PRN Reason Stop Dose Admin Chlordiazepoxide HCl 25 mg 03/16/22 18:00 03/18/22 17:21 Chlordiazepoxide (*Crx) 25 Mg Capsule PO 25 mg Q8H VADIM Administration Escitalopram Oxalate 20 mg 03/16/22 21:00 03/17/22 21:30 Escitalopram Oxalate 10 Mg Tablet PO 20 mg QHS VADIM Administration Hydromorphone HCl 0.5 mg 03/15/22 09:39 03/18/22 14:51 Hydromorphone Hcl Inj (*Crx) 1 Mg/Ml Syr IV PUSH 0.5 mg Q4H PRN A
[2022-03-18 20:50] VITALS: BP 125/91
[2022-03-18] MEDS: ESCITALOPRAM OXALATE 10 MG TABLET 20 MG PO (20:54)
[2022-03-18 22:00] VITALS: BP 130/90; PULSE 115; RESP 18; TEMP 36.1; O2SAT 98
[2022-03-19] VITALS: BP 130/90
[2022-03-19] MEDS: hydrOXYzine HCL 25 MG TABLET 50 MG PO ×3 (00:59→12:50)
[2022-03-19] MEDS: chlordiazePOXIDE (*CRX) 25 MG CAPSULE PO ×2 (01:00→09:38)
[2022-03-19 04:00] VITALS: BP 130/90
[2022-03-19 06:00] VITALS: BP 118/86; PULSE 104; RESP 18; TEMP 36.8; O2SAT 98
[2022-03-19 07:50] LABS: Basophils Absolute Auto 0.1 K/mm3 (0.0-0.1); Basophils Percent Auto 0.6 % (0.2-1.2); Eosinophils Absolute Auto 0.1 K/mm3 (0-0.3); Hematocrit 43.4 % (42.0-52.0); Hemoglobin 15.3 g/dL (14.0-18.0); Immature Granulocyte Absolute 0.05 K/mm3 (0.00-0.031); Immature Granulocyte Percent A 0.5 % (0-0.5); Lymphocytes Absolute Auto 1.25 K/mm3 (0.9-3.2); Lymphocytes Percent Auto 12.9 % (18.3-44.2); Mean Corpuscular HGB Conc 35.3 g/dl (32-36); Mean Corpuscular Volume 96.4 fl (80-100); Monocytes Percent Auto 10.5 % (2.6-8.5); Neutrophils Absolute Auto 7.2 K/mm3 (1.3-6.7); Neutrophils Percent Auto 74.5 % (45.5-73.1); Platelet Count Result 226 k/mm3 (150-375); White Blood Count 9.7 K/mm3 (4.5-10.0)
[2022-03-19 07:57] LABS: Alanine Aminotransferase 39 U/L (6-50); Albumin Level 3.3 g/dL (3.5-5.1); Alkaline Phosphatase 95 U/L (38-126); Anion Gap 8 mmol/L (8-16); Aspartate Amino Transferase 45 U/L (17-59); Bilirubin,Total 0.8 mg/dL (0.2-1.3); Blood Urea Nitrogen 4 mg/dL (9-20); Carbon Dioxide 25 mmol/L (22-30); Chloride 100 mmol/L (98-107); Cholesterol 128 mg/dL (0-200); Estimated CRCL calculation 175 ml/min; Estimated Glomerular Filt Rate > 60; Glucose 83 mg/dL (65-110); HDL Direct 27 mg/dL; Lipase 1304 U/L (23-300); Phosphorus 3.4 mg/dL (2.5-4.5); Sodium 133 mmol/L (137-145); Triglycerides 113 mg/dL (<150)
[2022-03-19 08:07] LABS: LDL Cholesterol Direct 72 mg/dL
[2022-03-19] MEDS: MULTIVIT/MIN/PREN/FOL AC/IRON TABLET 1 TAB PO (09:38)
[2022-03-19] MEDS: LORazepam INJ (*CRX) 2 MG/ML VIAL 1 MG IV PUSH (09:38)
[2022-03-19] MEDS: THIAMINE HCL 100 MG TABLET PO (09:38)
[2022-03-19] MEDS: PANTOPRAZOLE 40 MG TABLET PO (09:38)
--- NOTE | 2022-03-19 10:48 | WPDGIPROGNO ---
Progress Note: A&P Assessment and Plan (1) Acute pancreatitis: Code(s): K85.90 - Acute pancreatitis without necrosis or infection, unspecified Status: Acute Assessment and Plan: Patient alert comfortable this morning. Acute pancreatitis on the basis of alcohol use. Patient instructed to avoid alcohol as this may lead to recurrent episodes of pancreatitis and potentially chronic pancreatitis. Patient voices understanding. Patient currently doing well with no obvious discomfort. No longer requiring and pain medications. Serum lipase still somewhat elevated 1300 today. This has declined somewhat recently but overall is somewhat elevated. Follow-up lipase after discharge for only encouraged. Would recommend increasing activity in hopefully home later today or tomorrow if stable. I understand an ultrasound has been ordered to evaluate for potential concomitant gallstones. Perhaps this should be reviewed prior to discharge. (2) Alcohol abuse: Code(s): F10.10 - Alcohol abuse, uncomplicated Status: Acute Assessment and Plan: Alcohol abstinence is essential for this patient. Patient understands this at present. Subjective Date/time seen: 03/19/22 10:48 Patient alert more comfortable this morning. Denies any recent pain medications. Tolerating diet so far without difficulties. Anxious to go home. Review of Systems Review of Systems: Review of systems noncontributory. Exam Narrative: Physical exam reveals patient be alert. Afebrile. He is anicteric. Lying comfortably in bed. HEENT exam is unremarkable. Patient is anicteric. Lungs are clear. Heart without murmur. Abdomen bowel sounds are present soft no localized tenderness. No masses. Objective Data Vital Signs Vital Signs: Vital Signs - 24 hr 03/18/22 15:03 03/18/22 20:50 03/18/22 22:00 Temperature 99.1 F 97 F L Pulse Rate 112 H 115 H Respiratory Rate 20 18 Blood Pressure 125/91 H 125/91 H 130/90 Pulse Oximetry 96 98 03/19/22 00:00 03/19/22 04:00 03/19/22 06:00 Temperature 98.2 F Pulse Rate 104 H Respiratory Rate 18 Blood Pressure 130/90 130/90 118/86 Pulse Oximetry 98 Intake/Output Intake/Output: Intake & Output 03/16/22 03/17/22 03/18/22 03/19/22 23:59 23:59 23:59 23:59 Intake Total 5000 3220 1400 200 Output Total 2425 1800 1450 700 Balance 2575 1420 -50 -500 Meds/Results Medications: Active Medications Generic Name Dose Route Start Last Admin Trade Name Freq PRN Reason Stop Dose Admin Chlordiazepoxide HCl 25 mg 03/16/22 18:00 03/19/22 09:38 Chlordiazepoxide (*Crx) 25 Mg Capsule PO 25 mg Q8H VADIM Administration Escitalopram Oxalate 20 mg 03/16/22 21:00 03/18/22 20:54 Escitalopram Oxalate 10 Mg Tablet PO 20 mg QHS VADIM Administration Hydromorphone HCl 0.5 mg 03/15/22 09:39 03/18/22 20:55 Hydromorphone Hcl Inj (*Crx) 1 Mg/Ml Syr IV PUSH 0.5 mg Q4H PRN Administration Pain Rated 7-10 Hydroxyzine HCl 50 mg 03/17/22 12:00 03/19/22 05:26 Hydroxyzine Hcl 25 Mg Tablet PO 50 mg Q6HR VADIM Administration Lorazepam 1 mg 03/15/22 19:59 03/19/22 09:38 Lorazepam Inj (*Crx) 2 Mg/Ml Vial IV PUSH 1 mg Q2H PRN Administration Anxiety Pantoprazole Sodium 40 mg 03/18/22 09:00 03/19/22 09:38 Pantoprazole 40 Mg Tablet PO 40 mg QAM VADIM Administration Vit/Calcium/Iron/Folic Ac 1 tab 03/18/22 09:00 03/19/22 09:38 Multivit/Min/Pren/Fol Ac/Iron Tablet PO 1 tab DAILY VADIM Administration Thiamine HCl 100 mg 03/18/22 09:00 03/19/22 09:38 Thiamine Hcl 100 Mg Tablet PO 100 mg QAM VADIM Administration Radiology Results: ITS Impressions Abdomen/Pelvis CT 03/15/22 08:43 IMPRESSION: 1. Acute interstitial pancreatitis centered at the uncinate process. 2. Prominent diffuse hepatic steatosis. Labs Labs: Laboratory Results - last 24 hr 03/19/22 03/19/22 07:03 07:03 WBC 9.
[2022-03-19] MEDS: POTASSIUM CHLORIDE 20 MEQ TABLET 40 MEQ PO (12:50)
[2022-03-19 14:00] VITALS: BP 120/90; PULSE 113; RESP 18; TEMP 36.9; O2SAT 98
--- NOTE | 2022-03-19 14:29 | PM.DS ---
DS: Admitting Diagnosis Discharge Date 03/19/22 Admitting Diagnosis Abdominal pain DS: Discharge Diagnosis Discharge Diagnosis (1) Pancreatitis: Code(s): K85.90 - Acute pancreatitis without necrosis or infection, unspecified Status: Acute (2) Alcohol abuse: Code(s): F10.10 - Alcohol abuse, uncomplicated Status: Acute (3) Hyperbilirubinemia: Code(s): E80.6 - Other disorders of bilirubin metabolism Status: Acute (4) Hepatic steatosis: Code(s): K76.0 - Fatty (change of) liver, not elsewhere classified Status: Acute (5) Asymptomatic proteinuria: Code(s): R80.9 - Proteinuria, unspecified Status: Acute (6) Hypokalemia: Code(s): E87.6 - Hypokalemia Status: Acute DS: Summary Hospital Course Reason for hospitalization: 31yo male with hx of alcoholism here for abdominal pain and found to have pancreatitis. Please see H&P for details. Hospital Course: Patient presents with abdominal pain found to have pancreatitis.? Pancreatitis felt secondary to alcohol abuse.? Lipase was 2000. CT A/P showing acute pancretitis centered at the uncinate process and prominent diffuse hepatic steatosis. GI was consulted. He was made NPO and IV fluids started. CIWA protocol has been started.? He was started on scheduled Librium.? Thiamine and multivitamin started.? Ativan available as needed for elevated CIWA score.? Lexapro was resumed.? Care coordination provided information about resources. Patient was educated about the benefits of abstaining from alcohol. TG level normal. Rt upper quadrant US showing no GB thickening or gallstones. Lipid panel okay. He has asymptomatic proteinuria felt related to acute inflammatory process. Abdominal pain improved and diet was started.? His diet was advanced and able to tolerate oral intake. Patient was instructed to avoid all alcohol use as this may lead to recurrent episodes of pancreatitis, potentially chronic pancreatitis and/or cirhosis.? Patient voices understanding.? Patient currently doing well with no obvious discomfort.?Follow-up lipase after discharge.?He overall did well and was able to be discharged on 03/19/22.? Status at Discharge Cognitive/behavioral status at discharge: stable Time Spent with Patient Time attestation: Total time spent providing and/or coordinating discharge services: 35 minutes Time spent: Greater than 30 minutes Exam Narrative: AF 98.2 118/86 104 18 98% ra Gen - NARD Chest - CTA bilaterally CV - RRR S1/S2 Abd - Soft, ND, +BS. mild epigastric pain Ext - No pedal edema Psych - Nml mood and affect Skin - Warm and dry DS: Data Data Completed and Pending Labs on day of discharge: Labs from last 24 hours 03/19/22 03/19/22 07:03 07:03 WBC 9.7 RBC 4.50 L Hgb 15.3 Hct 43.4 MCV 96.4 MCH 34.0 MCHC 35.3 RDW 12.0 Plt Count 226 MPV 10.0 Immature Gran % (Auto) 0.5 Neut % (Auto) 74.5 H Lymph % (Auto) 12.9 L [place] % (Auto) 10.5 H Eos % (Auto) 1.0 Baso % (Auto) 0.6 Lymph # (Auto) 1.25 [place] # (Auto) 1.0 H Eos # (Auto) 0.1 Baso # (Auto) 0.1 Abs Immat Gran (auto) 0.05 H Absolute Neuts (auto) 7.2 H Absolute Nucleated RBC 0.0 Nucleated RBC % 0.0 Sodium 133 L Potassium 3.0 L Chloride 100 Carbon Dioxide 25 Anion Gap 8 BUN 4 L Creatinine 0.60 L Estim Creat Clear Calc 175 Estimated GFR > 60 Glucose 83 Calcium 8.0 L Phosphorus 3.4 Total Bilirubin 0.8 AST 45 ALT 39 Alkaline Phosphatase 95 Total Protein 7.0 Albumin 3.3 L Triglycerides 113 Cholesterol 128 LDL Cholesterol Direct 72 HDL Direct 27 Lipase 1304 H Discharge Plan Discharge Attending physician on discharge: Luigi Coto Consulting providers: Oj Velasquez Discharging Clinician: Luigi Coto Anticipated Discharge Date/Time: 03/19/22 14:44 Patient Disposition: Home, Self-Care [facility]
[2022-03-21 11:01] LABS: Haptoglobin 367 mg/dL (43-212)
== END 2022-03-19 15:50 | disposition home or self-care (01) | DRG 282 ==
LOC: ANHED 09:47 → ANH3MEDSUR 14:05
PROVIDERS: Internal Medicine Gastroenterology; Physician Assistant; Student in an Organized Health Care Education/Training Program; Admitting Provider Family Medicine; Emergency Provider Emergency Medicine; Visit Provider Internal Medicine
DX: K85.20 Alcohol induced acute pancreatitis without necrosis or infection (principal); K76.0 Fatty (change of) liver, not elsewhere classified; E80.6 Other disorders of bilirubin metabolism; E87.6 Hypokalemia; R80.9 Proteinuria, unspecified; F17.210 Nicotine dependence, cigarettes, uncomplicated; F10.20 Alcohol dependence, uncomplicated; Z20.822 Contact with and (suspected) exposure to COVID-19
CPT/HCPCS: 36415; 74177; 76705; 80048; 80053; 80061; 81001; 82043; 82248; 82948; 83010; 83615; 83690; 83735; 84100; 85025; 85027; 85046; 87086; 87636; 96361; 96374; 96375; 99285; A9270; C9113; J1170; J2060; J2405; J3411; J3475; J3480; J7030; J7040; J7121; Q9967

== ENCOUNTER 2022-11-25 09:20 | Inpatient (IN) | payer OTHER, SELFPAY ==
[2022-11-25] VITALS (23 sets, daily range): BP systolic 113–152; BP diastolic 78–104; PULSE 60–785; RESP 12–20; TEMP 36.1–36.5; O2SAT 94–100; BMI 31.0
--- NOTE | ~2022-11-25 | MR_ITS ---
EXAMINATION: MR MRCP wo/w con/w 3D wo ind DATE: 11/29/2022 16:48 INDICATION: Pancreatitis TECHNIQUE: Magnetic resonance imaging (MRI) of the abdomen was performed without and with 18 mL Multi jessica intravenous contrast. Sequences included coronal T2-weighted SS-FSE, coronal T2-weighted FS SS- FSE, coronal T2-weighted FS FIESTA, axial T2-weighted FS FIESTA, axial T2-weighted FIESTA, sagittal T 2-weighted SS-FSE, axial T1-weighted dual-echo FSPGR, axial T2-weighted SS-FSE, axial T1-weighted LAV A, axial T2-weighted STIR FSE. Thick-slab T2-weighted FRFSE-XL images were obtained for magnetic reso nance cholangiopancreatography (MRCP). Rotating maximum intensity projection 3-D reconstructions of t he volumetric data were created by the technologist. Postcontrast sequences included a time course of axial T1-weighted LAVA. COMPARISON: CT dated 11/25/22 FINDINGS: ABDOMEN MRI: Heart size is normal. No pericardial effusion. Discoid atelectasis in the right lower lobe. Trace lef t and very small right posterior layering pleural effusions. Bilateral gynecomastia. Diffuse hepatic steatosis. Gallbladder, spleen, bilateral adrenal glands and right kidney are normal. 3 mm T2 hyperin tense nonenhancing cyst at the upper pole the left kidney and lower pole of the right kidney. Again s een is inflammatory stranding surrounding the uncinate process of the pancreas consistent with acute pancreatitis. Approximately 2.5 x 1.8 cm region at the uncinate process of the pancreas with hypoenha ncement relative to remainder the pancreas and containing small globular regions of increased T1 sign al which could be seen with blood or proteinaceous fluid which suggests pancreatic necrosis and possi ble hemorrhagic transformation. Visualized bowels including the appendix are normal. Bone marrow sign al is normal throughout. No pathologically enlarged abdominal lymphadenopathy. Moderate to severe dis c height loss at L5-S1. ABDOMEN MRCP: No intra or extra hepatic biliary ductal dilation. The common bile duct is 304 mm in ma ximal diameter which is normal tapering smoothly distally with no evident filling defects to suggest choledocholithiasis. IMPRESSION: 1. Acute pancreatitis at the uncinate process where there is a region of significant increased enhanc ement and lobular increased T1 signal which suggests possible pancreatic necrosis and secondary hemor rhagic transformation. 2. No intra or extrahepatic biliary ductal dilation with no evident cholelithiasis/choledocholithiasi s. The latter. Diffuse hepatic steatosis. 4. Trace left and very small right posterior layering pleural effusions. Reviewed, dictated and finalized at location A. IMPRESSION: 1. Acute pancreatitis at the uncinate process where there is a region of signif icant increased enhancement and lobular increased T1 signal which suggests poss ible pancreatic necrosis and secondary hemorrhagic transformation. 2. No intra or extrahepatic biliary ductal dilation with no evident cholelithia sis/choledocholithiasis. The latter. Diffuse hepatic steatosis. 4. Trace left and very small right posterior layering pleural effusions.
--- NOTE | ~2022-11-25 | US_ITS ---
EXAMINATION: US venous doppler [facility] DATE: 11/28/2022 15:21 INDICATION: Positive Homans sign with lower limb pain at the calf with palpation. TECHNIQUE: Grayscale ultrasound images without and with compression and Doppler ultrasound images of the bilateral lower extremity veins were obtained. COMPARISON: None. FINDINGS: The visualized portions of right common femoral vein, profunda (deep) femoral vein, femoral vein, pop liteal vein, posterior tibial veins, peroneal veins, gastrocnemius vein and greater saphenous vein ou tflow are patent. The visualized portions of left common femoral vein, profunda femoral vein, femoral vein, popliteal v ein, posterior tibial veins, peroneal veins, gastrocnemius vein and greater saphenous vein outflow ar e patent. IMPRESSION: 1. No deep venous thrombosis in either lower limb. Reviewed, dictated and finalized at location A.
--- NOTE | ~2022-11-25 | US_ITS ---
EXAMINATION: US right upper quadrant DATE: 11/28/2022 15:21 INDICATION: Pancreatitis TECHNIQUE: Multiple grayscale and Doppler ultrasound images of the abdomen were obtained. COMPARISON: Ultrasound dated 03/19/[address] dated 11/25/2022 FINDINGS: Somewhat heterogeneous echogenicity and ill-defined margins of the visualized portion of the body the pancreas which could be seen with interstitial edema in the setting of acute pancreatitis. Liver has normal contour, with a smooth surface. There is increased parenchymal echogenicity and coarsened ech otexture consistent with diffuse hepatic steatosis. No liver lesion identified. No intrahepatic bili lisy duct dilation suspected. Portal venous flow was seen in the hepatopetal, normal direction and has normal Doppler waveform. The gallbladder is normal in appearance. There is no cholelithiasis. The c ommon bile duct measures 6-7 mm, which is normal. Sonographic Miller sign was reported as negative by the community service worker.Those portions of the right kidney demonstrates normal echogenicity and contour with no hydronephrosis. Visualized portion of the proximal inferior vena cava is normal. IMPRESSION: 1. Mildly dilated common bile duct which measures 6-7 mm in diameter but without evident cholelithias is or intrahepatic biliary ductal dilation. Correlate with liver function tests and could consider fu rther evaluation with MRCP. 2. Nonspecific heterogeneous echogenicity and ill-defined margins of the pancreatic body which could be related to edema in the setting of acute interstitial pancreatitis. 3. Diffuse hepatic steatosis. Reviewed, dictated and finalized at location A. IMPRESSION: 1. Mildly dilated common bile duct which measures 6-7 mm in diameter but withou t evident cholelithiasis or intrahepatic biliary ductal dilation. Correlate wit h liver function tests and could consider further evaluation with MRCP. 2. Nonspecific heterogeneous echogenicity and ill-defined margins of the pancre atic body which could be related to edema in the setting of acute interstitial pancreatitis. 3. Diffuse hepatic steatosis.
--- NOTE | ~2022-11-25 | XR_ITS ---
EXAMINATION: XR chest 1V portable DATE: 11/27/2022 00:39 INDICATION: Fever. Tachypnea. TECHNIQUE: A single frontal view of the chest was obtained. COMPARISON: Chest single view 06/06/2021, CT abdomen and pelvis 11/25/2022 FINDINGS: The lung volumes are small. There is mild atelectasis at the lung bases. No pleural effusio n or pneumothorax. The heart size is normal. IMPRESSION: 1. Small lung volumes with mild atelectasis at the lung bases. Reviewed, dictated and finalized at location A.
--- NOTE | ~2022-11-25 | CT_ITS ---
EXAMINATION: CT abdomen pelvis w con DATE: 11/25/2022 11:20 INDICATION: Epigastric and right upper quadrant abdominal pain. TECHNIQUE: Computed tomography (CT) of the abdomen and pelvis was performed with 100 mL Omnipaque 350 intravenous contrast. Automated exposure control and iterative reconstruction technique were employe d. The dose-length product was 876.62 mGy-cm. COMPARISON: CT abdomen and pelvis 03/15/22 FINDINGS: The visualized portions of the lung bases demonstrate mild atelectasis. No pleural effusion . The heart size is normal. No pericardial effusion. There is diffuse hepatic steatosis. The gallblad tiffany, spleen, and adrenal glands are normal. There is fat stranding around the pancreas, consistent wi th acute interstitial pancreatitis. Right kidney is normal. There is a 4 mm cyst in left kidney. Ther e are no dilated loops of bowel. The appendix is normal. There are no pathologically enlarged lymph n odes. There is no free intraperitoneal fluid. There is moderate lower lumbar spondylosis. IMPRESSION: 1. Acute interstitial pancreatitis. 2. Diffuse hepatic steatosis. Reviewed, dictated and finalized at location A.
--- NOTE | 2022-11-25 10:45 | ED.GENADULT ---
[facility] - General Adult General Chief complaint: Abdominal Pain Stated complaint: severe abd pain Time Seen by Provider: 11/25/22 10:33 Source: patient Mode of arrival: ambulatory Limitations: no limitations History of Present Illness HPI narrative: This is a 31-year-old male with PMH of alcohol abuse, pancreatitis who presents to the ED with chief complaint of epigastric pain beginning around 4 AM this morning. Patient states that he was drinking last night. States he drink a lot. Reports pain is all in the epigastrium and does radiate to the back occasionally. Denies abdominal surgical history. Denies fevers, chills, vomiting. Does endorse some nausea. Denies chest pain, shortness of breath, urinary symptoms, troubles with bowel movements. Related Data Allergies Allergy/AdvReac Type Severity Reaction Status Date / Time No Known Allergies Allergy Verified 11/25/22 10:35 Review of Systems Review of Systems: All 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 Surrogate medical decision maker: Cristian Ambrocio, significant other. Code status: Full code. Smoking packs per day: 1 Smoking cigarettes per day: 20.0 Years smoked: 14 Smoking pack-years: 14.00 Smoking status: Former smoker Tobacco type: cigarettes Alcohol intake: current Alcohol use details: One pint of whiskey a day. Substance use: current Substance use type: marijuana Lack of Transportation: No Lack of Food: Never True Current Housing: I Have Housing Concerned About Future Housing: No Difficulty Paying Gas/Electric Bills: No Difficulty Paying for Meds: No Currently Unemployed: No Education: High School Diploma/GED Difficulty w/ Childcare or Family Care: No Additional living arrangements comments: Lives in [place] with significant other. Occupation/Education: occupation Spiritual care concerns: No Exam Narrative: GENERAL: Well-appearing, well-nourished, and in no acute distress. Smells of alcohol. HEAD: Normocephalic, atraumatic. EYES: PERRLA and EOMI. ENT: Nares clear, no rhinorrhea or epistaxis. Mucous membranes moist. Oropharynx without tonsillar hypertrophy exudate or other lesions. NECK: Supple. No adenopathy or masses. CHEST: No respiratory distress. Clear to auscultation. No wheezes rales or rhonchi HEART: Regular rate and rhythm. No murmur heard. Normal peripheral pulses. ABDOMEN: Epigastric and right upper quadrant tenderness present. Soft, nondistended, normal active bowel sounds. Negative peritoneal signs. MSK: Normal range of motion. No edema. SKIN: Warm, dry, no rash. NEURO: Alert and oriented x3. No focal deficits. PSYCH: Normal mood and affect. Course Course Emergency Course: Reevaluation 1311: Feeling pain is at a 7 and still severe at this point. Reports it was an 8 earlier. Vital Signs Vital signs: Vital Signs Temperature 97.3 F L 11/25/22 09:21 Pulse Rate 103 H 11/25/22 09:21 Respiratory Rate 16 11/25/22 09:21 Blood Pressure 152/104 H 11/25/22 09:21 Pulse Oximetry 98 11/25/22 09:21 Temperature 97.7 F 11/25/22 14:40 Pulse Rate 88 11/25/22 14:40 Respiratory Rate 20 11/25/22 14:40 Blood Pressure 129/92 H 11/25/22 14:40 Pulse Oximetry 98 11/25/22 14:40 Medical Decision Making MDM Narrative Medical decision making narrative: This is a 31-year-old male who present
[2022-11-25 10:52] LABS: Basophils Percent Auto 0.4 % (0.2-1.2); Eosinophils Percent Auto 0.1 % (0-4.4); Hematocrit 46.1 % (42.0-52.0); Hemoglobin 16.1 g/dL (14.0-18.0); Immature Granulocyte Absolute 0.02 K/mm3 (0.00-0.031); Immature Granulocyte Percent A 0.2 % (0-0.5); Lymphocytes Absolute Auto 1.36 K/mm3 (0.9-3.2); Lymphocytes Percent Auto 14.1 % (18.3-44.2); Mean Corpuscular HGB Conc 34.9 g/dl (32-36); Mean Corpuscular Hemoglobin 32.4 pg (26-34); Mean Corpuscular Volume 92.8 fl (80-100); Mean Platelet Volume 9.6 fl (7.4-10.4); Monocytes Absolute Auto 0.8 K/mm3 (0.1-0.6); Monocytes Percent Auto 8.5 % (2.6-8.5); Neutrophils Absolute Auto 7.4 K/mm3 (1.3-6.7); Neutrophils Percent Auto 76.7 % (45.5-73.1); Platelet Count Result 155 k/mm3 (150-375); Red Blood Count 4.97 M/mm3 (4.6-6.20); Red Cell Distribution Width 11.8 % (11.5-14.5); White Blood Count 9.6 K/mm3 (4.5-10.0)
[2022-11-25] MEDS: ONDANSETRON INJ 4 MG/2 ML VIAL IV PUSH (10:52)
[2022-11-25] MEDS: MORPHINE SULFATE (*CRX) 4 MG/ML INJ IV PUSH (10:52)
[2022-11-25] MEDS: SODIUM CHLORIDE 0.9% IV 1,000 ML 999 ML IV CONT (10:52)
[2022-11-25 11:06] LABS: Alanine Aminotransferase 126 U/L (6-50); Albumin Level 4.5 g/dL (3.5-5.1); Alkaline Phosphatase 112 U/L (38-126); Anion Gap 8 mmol/L (8-16); Aspartate Amino Transferase 123 U/L (17-59); Bilirubin,Total 0.7 mg/dL (0.2-1.3); Blood Urea Nitrogen 5 mg/dL (9-20); Calcium 8.7 mg/dL (8.4-10.2); Carbon Dioxide 27 mmol/L (22-30); Chloride 98 mmol/L (98-107); Estimated CRCL calculation 168 ml/min; Estimated Glomerular Filt Rate > 60; Glucose 120 mg/dL (65-110); Potassium 3.4 mmol/L (3.4-5.0); Sodium 133 mmol/L (137-145)
[2022-11-25 11:21] LABS: Ethanol 103 mg/dL (<10)
[2022-11-25 11:29] LABS: Lipase 2159 U/L (23-300)
[2022-11-25 11:52] LABS: Lactate Dehydrogenase 208 U/L (120-246)
[2022-11-25] MEDS: LORazepam INJ (*CRX) 2 MG/ML VIAL 0.5 MG IV PUSH (11:57)
[2022-11-25 12:13] LABS: Appearance Urine Clear (Clear); Bacteria Urine None Seen /hpf; Bilirubin Urine Negative (Negative); Blood Urine Negative (Negative); Color Urine Yellow (Yellow); Glucose Urine UA Negative (Negative); Ketones Urine Trace mg/dL (Negative); Leukocyte Esterase Ur Negative LEU/UL (Negative); Nitrate Urine Negative (Negative); Non Pathogenic Casts 0-2; Protein Urine Trace mg/dL (Negative); RBC Urine 0-2 /hpf (0-2); Squamous Epithelial Cell Urine None seen /hpf (Few); Urobilinogen Urine 0.2 mg/dL (<2.0); WBC Urine 0-5 /hpf; pH Urine 6.5 (5.0-9.0)
[2022-11-25 12:49] LABS: Specific Grav Ur 1.038 (1.001-1.035)
[2022-11-25 12:50] LABS: Add Urine Microscopic? YES
--- NOTE | 2022-11-25 14:00 | PM.IMHP ---
H&P: HPI History of Present Illness Date/Time: 11/25/22 14:00 Chief Complaint: Abdominal pain Narrative: This is a 31-year-old male patient who has a history of alcohol abuse and pancreatitis. The patient came to the emergency room with complaints of a progressive pain the started around 4:00 a.m. this morning. Patient stated he last drink last night. Patient states that he drinks about a pt of alcohol the day. The patient stated that he is supposed to go to rehab but developed this pain and is abdomen and came to the emergency room instead. The patient has some nausea but no vomiting fever chills. Abdominal pelvis CT was read as the following1. Acute interstitial pancreatitis. 2. Diffuse hepatic steatosis. His last admission for pancreatitis was March of last year. His sodium is 133 which is his baseline. Lipase is 2159. The patient was given morphine but he stated that did help his pain much she was also given Zofran and IV fluids in the emergency room. He also was given Ativan in the emergency room. Patient is diaphoretic and his hands are tremulous. The patient is being admitted to inpatient status on the date of service of 11/25/2022 Review of Systems Review of Systems: All systems reviewed & are unremarkable except as noted in HPI and below Constitutional: Constitutional: Reports as per HPI and Reports no additional constitutional complaints Eyes: Eyes: Reports as per HPI and Reports no additional eye complaints ENT: Reports system reviewed and no additional complaints, except as documented and Reports Normal hearing present Cardiovascular: Cardiovascular: Reports no additional cardiovascular complaints Respiratory: Respiratory: Reports no additional respiratory complaints and Reports no additional respiratory complaints Gastrointestinal: Gastrointestinal: Reports as per HPI and Reports no additional gastrointestinal complaints Musculoskeletal: Musculoskeletal: Reports no additional musculoskeletal complaints Integumentary/Breasts: Skin/Breast: Reports system reviewed and no additional complaints, except as docu and Reports as per HPI Neurologic: Reports system reviewed and no additional complaints, except as documented, Reports as per HPI and Reports Normal hearing present Psychiatric: Psychiatric: Reports no additional psychiatric complaints and Reports as per HPI Endocrine: Endocrine: Reports no additional endocrine complaints Hematologic/Lymphatic: Hematologic/Lymphatic: Reports no additional hematologic/lymphatic complaints Allergic/Immunologic: Allergic/Immunologic: Reports no additional allergic/immunologic complaints [facility] Past Medical History Medical History (Updated 11/25/22 @ 16:52 by Demetria A. 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 Surrogate medical decision maker: Cristian Ambrocio significant other. Code status: Full code. Smoking packs per day: 1 Smoking cigarettes per day: 20.0 Years smoked: 14 Smoking pack-years: 14.00 Smoking status: Former smoker Tobacco type: cigarettes Alcohol intake: current Alcohol use details: One pint of whiskey a day. Substance use: current Substance use type: marijuana Lack of Transportation: No Lack of Food: Never True Current Housing: I Have Housing Concerned About Future Housing: No Difficulty Paying Gas/Electric Bills: No Difficulty Paying for Meds: No Currently Unemployed: No Education: High School Diploma/GED Difficulty w/ Childcare or Family Care: No Additiona
--- NOTE | 2022-11-25 14:39 | ADMGEN ---
This patient, Hilario Arechiga, was admitted to [facility] Surg Room 301-01. Patient/family oriented to hospital policies and general routines including ID bracelet, bed and alarms, visiting hours, pain management, procedures, bathroom and other care routines, personal items, smoking policy, room service/diet, and visiting hours. Information on how to activate the Rapid Response Team has been discussed. Patient/Family are encouraged to report perceived risks to care and to ask questions if they do not understand what they are told or what they should do.
[2022-11-25] MEDS: LORazepam INJ (*CRX) 2 MG/ML VIAL IV PUSH ×2 (15:06→19:41)
[2022-11-25] MEDS: SODIUM CHLORIDE 0.9% IV 1,000 ML 125 ML IV CONT (15:08)
[2022-11-25] MEDS: HYDROmorphone HCL INJ (*CRX) 1 MG/ML SYR 0.5 MG IV PUSH ×3 (15:09→22:28)
[2022-11-25] MEDS: HALOPERIDOL LACTATE 5 MG/ML VIAL 2 MG IV PUSH ×2 (15:19→21:43)
[2022-11-25] MEDS: chlordiazePOXIDE (*CRX) 25 MG CAPSULE PO (18:12)
[2022-11-25 18:56] LABS: Glucose Point of Care 124 mg/dl (65-105)
[2022-11-25] MEDS: chlordiazePOXIDE (*CRX) 25 MG CAPSULE 50 MG PO (21:41)
--- NOTE | 2022-11-25 23:14 | PC.NURSE ---
This patient, Hilario Arechiga, was received from [[id number] ] on 11/25/22 at 2310. Patient/family oriented to unit policies and routines
[2022-11-25] MEDS: LORazepam INJ (*CRX) 2 MG/ML VIAL 4 MG IV PUSH (23:27)
[2022-11-25] MEDS: KETOROLAC 15 MG/ML VIAL (*BKC) IV PUSH (23:38)
[2022-11-26] VITALS (15 sets, daily range): BP systolic 113–159; BP diastolic 70–134; PULSE 64–140; RESP 16–28; TEMP 36.4–38.5; O2SAT 95–100
[2022-11-26 00:56] LABS: Glucose Point of Care 138 mg/dl (65-105)
[2022-11-26] MEDS: HYDROmorphone HCL INJ (*CRX) 1 MG/ML SYR 0.5 MG IV PUSH (01:35)
[2022-11-26] MEDS: LORazepam INJ (*CRX) 2 MG/ML VIAL IV PUSH ×4 (02:48→20:34)
[2022-11-26] MEDS: LORazepam INJ (*CRX) 2 MG/ML VIAL 4 MG IV PUSH ×4 (03:41→18:53)
[2022-11-26 04:50] LABS: Basophils Percent Auto 0.1 % (0.2-1.2); Hematocrit 45.4 % (42.0-52.0); Hemoglobin 15.3 g/dL (14.0-18.0); Immature Granulocyte Absolute 0.07 K/mm3 (0.00-0.031); Immature Granulocyte Percent A 0.5 % (0-0.5); Lymphocytes Absolute Auto 0.43 K/mm3 (0.9-3.2); Lymphocytes Percent Auto 3.2 % (18.3-44.2); Mean Corpuscular HGB Conc 33.7 g/dl (32-36); Mean Corpuscular Hemoglobin 31.5 pg (26-34); Mean Corpuscular Volume 93.6 fl (80-100); Monocytes Percent Auto 7.8 % (2.6-8.5); Neutrophils Absolute Auto 11.8 K/mm3 (1.3-6.7); Neutrophils Percent Auto 88.4 % (45.5-73.1); Platelet Count Result 142 k/mm3 (150-375); Red Blood Count 4.85 M/mm3 (4.6-6.20); Red Cell Distribution Width 11.6 % (11.5-14.5); White Blood Count 13.4 K/mm3 (4.5-10.0)
[2022-11-26 05:02] LABS: Alanine Aminotransferase 83 U/L (6-50); Albumin Level 4.2 g/dL (3.5-5.1); Alkaline Phosphatase 87 U/L (38-126); Anion Gap 7 mmol/L (8-16); Aspartate Amino Transferase 65 U/L (17-59); Bilirubin,Total 1.1 mg/dL (0.2-1.3); Blood Urea Nitrogen 3 mg/dL (9-20); Calcium 8.4 mg/dL (8.4-10.2); Carbon Dioxide 27 mmol/L (22-30); Chloride 94 mmol/L (98-107); Estimated CRCL calculation 197 ml/min; Estimated Glomerular Filt Rate > 60; Glucose 124 mg/dL (65-110); Magnesium 1.9 mg/dL (1.6-2.3); Sodium 128 mmol/L (137-145)
[2022-11-26 05:03] LABS: Lactic Acid Reflex 1.5 mmol/L (0.7-2.0)
[2022-11-26] MEDS: chlordiazePOXIDE (*CRX) 25 MG CAPSULE 100 MG PO ×4 (05:12→23:37)
--- NOTE | 2022-11-26 05:17 | PM.EVENT ---
Event Note Event Note Event Note: 11/26/2022 approximately 02:00 Nursing staff contacted me on was in the unit and the patient was becoming more agitated and restless. The patient's CIWA scores had jumped to 22. Patient had already received his Librium and he had p.r.n. Ativan ordered 2 mg for see list greater than 16. The patient was redirectable with medication. He was having waxing and waning intervals in is orientation. The patient around 530 in the morning became less directable and did require orders for Haldol. After Haldol administration the patient did settle down. The patient was tachycardic. An EKG was performed to further assess. Patient did not have evidence a QT prolongation. I did give orders to increase the patient's Librium to 100 mg q.6. Ativan was increased to 2 mg Q to for CIWA scores 5-15 and 4 mg Q to for CIWA scores greater than 15. The patient was adamant that he still had to urinate. Bladder scan was obtained which demonstrated only about 30 mL of residual. After the patient received Haldol the patient did fall asleep. CIWA score is current less than 10. The patient's labs were reviewed. The patient's sodium has dropped. Will need to be monitored closely. Will repeat sodium around 09:00. Alcohol withdrawal with delirium 40 minute spent in critical care activities Due to a high probability of clinically significant, life threatening deterioration, the patient required my highest level of preparedness to intervene emergently and I personally spent this critical care time directly and personally managing the patient. This critical care time included obtaining a history; examining the patient; pulse oximetry; ordering and review of studies; arranging urgent treatment with development of a management plan; evaluation of patient's response to treatment; frequent reassessment; and discussions with other providers. It was exclusive of separately billable procedures and treating other patients and teaching time. Please see Assessment and Plan section and the rest of the note for further information on patient assessment and treatment.
[2022-11-26] MEDS: HALOPERIDOL LACTATE 5 MG/ML VIAL 2 MG IV PUSH ×2 (05:23→07:31)
[2022-11-26] MEDS: SODIUM CHLORIDE 0.9% IV 1,000 ML 125 ML IV CONT ×2 (05:30→14:15)
--- NOTE | 2022-11-26 05:38 | ECG_ITS ---
Measurements Intervals [place] Rate: 80 P: 30 NC: 146 QRS: 26 QRSD: 94 T: 12 QT: 367 QTc: 425 Interpretive Statements SINUS RHYTHM WITH SINUS ARRHYTHMIA NONDIAGNOSTIC INFERIOR Q-WAVE BORDERLINE ECG COMPARED TO ECG 06/05/2021 15:48:36 PATIENT IS NO LONGER TACHYCARDIC AND Q-WAVES SEEN IN 3 AND AVF Electronically Signed On 11-26-2022 11:48:38 CDT by Marcial Allred M.D.
[2022-11-26 09:22] LABS: Sodium 123 mmol/L (137-145)
[2022-11-26] MEDS: FOLIC ACID 1 MG/0.2 ML INJ IV PUSH (09:39)
[2022-11-26] MEDS: THIAMINE HCL 200 MG/2 ML VIAL 100 MG IV PUSH (09:39)
--- NOTE | 2022-11-26 13:52 | PM.IMPN ---
Progress Note: A&P Assessment and Plan (1) Acute alcoholic pancreatitis: Code(s): K85.20 - Alcohol induced acute pancreatitis without necrosis or infection Status: Acute Assessment and Plan: The patient drinks approximately 1 pt of alcohol a day. The patient stated that he was going to go to rehab but had abdominal pain and came to the emergency room instead. His lipase was 2159. CT scan showing acute interstitial pancreatitis and diffuse hepatic steatosis. Etiology of his pancreatitis is alcohol. He was ordered a banana bag and then IV fluids. Patient is on clear liquids but informed RN to hold if patietn too somnolent. WBC higher today. Continue with analgesics but stop ketorolac. (2) Alcohol abuse: Code(s): F10.10 - Alcohol abuse, uncomplicated Status: Acute Assessment and Plan: The patient stated to others that he is willing to go to rehab. Alcohol level 103 on admission. direct mail coordinator was consulted. Continue with CIWA protocol. Continue thiamine/folate. Continue scheduled Librium. Ativan, p.r.n. available as well. The patient was advised to abstain from alcohol. (3) Hyponatremia: Code(s): E87.1 - Hypo-osmolality and hyponatremia Status: Acute Assessment and Plan: Sodium was 133 on admission but has dropped to 123 now. Probably related to 3rd spacing of fluids. Serial Na levels. Increase IV fluid rate. (4) Elevated LFTs: Code(s): R79.89 - Other specified abnormal findings of blood chemistry Status: Acute Assessment and Plan: AST/ALT elevated on admission but trending down now. Bili normal. Suspect related to alcoholic hepatitis. Check hepatitis panel, HIV. Follow (5) Hepatic steatosis: Code(s): K76.0 - Fatty (change of) liver, not elsewhere classified Status: Acute Assessment and Plan: Related to daily alcohol use. Plan DVT prophylaxis with SCDs Code status full code Subjective Date/time seen: 11/26/22 13:52 Interval history: 31yo male with hx of alcoholism here for abdominal pain and found to have pancreatitis. Patient arouses and is confused. He required soft restraints overnight as well as Haldol and Ativan. Review of Systems Review of Systems: ROS unobtainable: Yes unobtainable due to mental status Exam Narrative: AF ? 99.2 159/130 98 28 100% ra Gen - NARD Chest - clear anteriorly and in the flanks, nml RR CV - RRR S1/S2 Abd - Soft, ND, hypoactive, diffuse tenderness Ext - No pedal edema. 2+ DP bilaterally Neuro - arouses, oriented to location and margot name. Psych - Nml mood and affect Skin - Warm and dry Objective Data Vital Signs Vital Signs: Vital Signs - 24 hr 11/25/22 14:40 11/25/22 21:38 11/25/22 20:00 Temperature 97.7 F 96.9 F L Pulse Rate 88 60 60 Pulse Rate [Monitor] Respiratory Rate 20 14 14 Blood Pressure 129/92 H 136/89 Pulse Oximetry 98 100 100 Oxygen Delivery Room Air 11/25/22 20:00 11/25/22 23:17 11/26/22 00:00 Temperature Pulse Rate 60 70 Pulse Rate [Monitor] 100 Respiratory Rate Blood Pressure Pulse Oximetry Oxygen Delivery 11/26/22 00:00 11/26/22 02:46 11/26/22 03:41 Temperature 97.6 F Pulse Rate 64 Pulse Rate [Monitor] 95 96 Respiratory Rate 22 H Blood Pressure 113/70 Pulse Oximetry 97 Oxygen Delivery 11/26/22 04:00 11/26/22 04:00 11/26/22 04:00 Temperature 98.2 F Pulse Rate 75 75 Pulse Rate [Monitor] Respiratory Rate 17 Blood Pressure 142/100 H Pulse Oximetry 99 99 Oxygen Delivery 11/26/22 04:40 11/26/22 05:58 11/26/22 08:00 Temperature Pulse Rate 116 H Pulse Rate [Monitor] 107 H 96 Respiratory Rate Blood Pressure Pulse Oximetry Oxygen Delivery 11/26/22 08:00 11/26/22 08:00 11/26/22 12:00 Temperature 98 F Pulse Rate 80 Pulse Rate [Monitor] Respiratory Rate 16 Blood Pressure 155/134 H Pulse Oximetry 99 Oxygen Deli
[2022-11-26] MEDS: PANTOPRAZOLE SODIUM IV 40 MG VIAL IV PUSH (17:46)
[2022-11-26 19:05] LABS: Sodium 126 mmol/L (137-145)
[2022-11-26 19:55] LABS: HIV 1/2 Ab P24 Ag Result Negative (Negative)
[2022-11-26 20:11] LABS: Hepatitis B Surface Antigen Negative (Negative)
[2022-11-26 20:16] LABS: HAV RESULT Negative (Negative); Hepatitis B Core IgM Result Negative (Negative)
[2022-11-26 20:28] LABS: Hepatitis C Virus Antibody Negative (Negative)
[2022-11-26] MEDS: SODIUM CHLORIDE 0.9% IV 1,000 ML 150 ML IV CONT (21:26)
[2022-11-26 23:34] LABS: Glucose Point of Care 115 mg/dl (65-105)
[2022-11-27] VITALS (16 sets, daily range): BP systolic 132–148; BP diastolic 81–103; PULSE 107–147; RESP 17–26; TEMP 36.2–38.1; O2SAT 97–99
[2022-11-27] MEDS: LORazepam INJ (*CRX) 2 MG/ML VIAL IV PUSH ×2 (00:31→21:40)
[2022-11-27 00:35] LABS: Lactic Acid Reflex 1.2 mmol/L (0.7-2.0)
[2022-11-27 00:39] LABS: Influenza A QL RT-PCR Negative (Negative); Influenza B QL RT-PCR Negative (Negative); SARS-CoV-2 RNA PCR Negative (Negative)
[2022-11-27 00:57] LABS: Sodium 128 mmol/L (137-145)
[2022-11-27 01:29] LABS: Appearance Urine Clear (Clear); Bacteria Urine None Seen /hpf; Bilirubin Urine Negative (Negative); Blood Urine Negative (Negative); Color Urine Yellow (Yellow); Glucose Urine UA Negative (Negative); Ketones Urine 3+ mg/dL (Negative); Leukocyte Esterase Ur Negative LEU/UL (Negative); Nitrate Urine Negative (Negative); Non Pathogenic Casts 0-2; Protein Urine 1+ mg/dL (Negative); RBC Urine 0-2 /hpf (0-2); Specific Grav Ur 1.011 (1.001-1.035); Squamous Epithelial Cell Urine None seen /hpf (Few); WBC Urine 0-5 /hpf
[2022-11-27 01:34] LABS: Add Urine Microscopic? YES
[2022-11-27] MEDS: SODIUM CHLORIDE 0.9% IV 1,000 ML 150 ML IV CONT ×3 (04:14→17:49)
[2022-11-27 04:48] LABS: Basophils Percent Auto 0.1 % (0.2-1.2); Hematocrit 47.8 % (42.0-52.0); Hemoglobin 16.6 g/dL (14.0-18.0); Immature Granulocyte Absolute 0.19 K/mm3 (0.00-0.031); Immature Granulocyte Percent A 1.2 % (0-0.5); Immature Platelet Fraction Pct 5.3 % (0.9-11.2); Lymphocytes Absolute Auto 0.67 K/mm3 (0.9-3.2); Lymphocytes Percent Auto 4.3 % (18.3-44.2); Mean Corpuscular HGB Conc 34.7 g/dl (32-36); Mean Corpuscular Hemoglobin 32.1 pg (26-34); Mean Corpuscular Volume 92.5 fl (80-100); Monocytes Absolute Auto 1.1 K/mm3 (0.1-0.6); Monocytes Percent Auto 7.4 % (2.6-8.5); Neutrophils Absolute Auto 13.5 K/mm3 (1.3-6.7); Platelet Count Result 135 k/mm3 (150-375); Red Blood Count 5.17 M/mm3 (4.6-6.20); Red Cell Distribution Width 11.9 % (11.5-14.5); White Blood Count 15.5 K/mm3 (4.5-10.0)
--- NOTE | 2022-11-27 06:03 | PC.NURSE ---
received patient and bedside report from Maria WING.
--- NOTE | 2022-11-27 06:08 | PC.NURSE ---
This patient, Hilario Arechiga, was transferred to [[facility] ] on 11/27/22 at 0600. Personal belongings sent with patient. Report given to [Siria ]. Appropriate documentation sent with patient.
[2022-11-27 06:18] LABS: Alanine Aminotransferase 63 U/L (6-50); Albumin Level 3.9 g/dL (3.5-5.1); Alkaline Phosphatase 84 U/L (38-126); Anion Gap 6 mmol/L (8-16); Aspartate Amino Transferase 64 U/L (17-59); Bilirubin,Total 1.4 mg/dL (0.2-1.3); Blood Urea Nitrogen 4 mg/dL (9-20); Calcium 8.8 mg/dL (8.4-10.2); Carbon Dioxide 25 mmol/L (22-30); Chloride 97 mmol/L (98-107); Estimated CRCL calculation 145 ml/min; Estimated Glomerular Filt Rate > 60; Glucose 98 mg/dL (65-110); Magnesium 1.7 mg/dL (1.6-2.3); Potassium 3.4 mmol/L (3.4-5.0); Sodium 128 mmol/L (137-145); Thyroid Stimulating Hormone Reflex 0.906 uIU/mL (0.465-4.68)
[2022-11-27 06:21] LABS: Lipase 2007 U/L (23-300)
[2022-11-27] MEDS: chlordiazePOXIDE (*CRX) 25 MG CAPSULE 100 MG PO ×2 (08:10→11:37)
[2022-11-27] MEDS: FOLIC ACID 1 MG/0.2 ML INJ IV PUSH (08:21)
[2022-11-27] MEDS: PANTOPRAZOLE SODIUM IV 40 MG VIAL IV PUSH (08:21)
[2022-11-27] MEDS: THIAMINE HCL 200 MG/2 ML VIAL 100 MG IV PUSH (08:21)
--- NOTE | 2022-11-27 15:32 | PM.IMPN ---
Progress Note: A&P Assessment and Plan (1) Acute alcoholic pancreatitis: Code(s): K85.20 - Alcohol induced acute pancreatitis without necrosis or infection Status: Acute Assessment and Plan: The patient drinks approximately 1 pt of alcohol a day. The patient stated that he was going to go to rehab but had abdominal pain and came to the emergency room instead. His lipase was 2159. CT scan showing acute interstitial pancreatitis and diffuse hepatic steatosis. Etiology of his pancreatitis is alcohol. He was ordered a banana bag and then IV fluids. Continue clear liquid diet. WBC up to 15K and now having fevers. CXR showing small lung volumes. BCx pending. Continue with analgesics. Continue supportive care. (2) Alcohol abuse: Code(s): F10.10 - Alcohol abuse, uncomplicated Status: Acute Assessment and Plan: The patient stated to others that he is willing to go to rehab. Alcohol level 103 on admission. audio visual coordinator was consulted. Continue with CIWA protocol. Continue thiamine/folate. Continue scheduled Librium. Ativan, p.r.n. available as well. The patient was advised to abstain from alcohol. (3) Hyponatremia: Code(s): E87.1 - Hypo-osmolality and hyponatremia Status: Acute Assessment and Plan: Sodium was 133 on admission but has dropped to 123 now. Probably related to 3rd spacing of fluids. Sodium climbing slowly to 128. Continue serial Na levels. Continue IV fluid rate. (4) Elevated LFTs: Code(s): R79.89 - Other specified abnormal findings of blood chemistry Status: Acute Assessment and Plan: AST/ALT elevated on admission but trending down now. Bili normal. Hepatitis panel, HIV negative. Suspect elevated LFTs related to pancreatitis and/or alcoholic hepatitis. Follow (5) Hepatic steatosis: Code(s): K76.0 - Fatty (change of) liver, not elsewhere classified Status: Acute Assessment and Plan: Related to daily alcohol use. Plan DVT prophylaxis with SCDs Code status full code Subjective Date/time seen: 11/27/22 15:32 Interval history: 31yo male with hx of alcoholism here for abdominal pain and found to have pancreatitis. Patient arouses and is mostly oriented. Sister in the room with patient's permission. He denies n/v. No abd pain. No BM or flatus yet. Exam Narrative: Tm 101.3 98.1 138/99 136 17 97% ra Gen - NARD Chest - decreased BS in the bases. nml RR CV - RRR S1/S2; Tele showing sinus tachycardia. Abd - Soft, ND, hypoactive, diffuse tenderness Ext - No pedal edema Psych - somnolent, oriented x3 (not the margot name). Skin - Warm and dry Objective Data Vital Signs Vital Signs: Vital Signs - 24 hr 11/26/22 16:00 11/26/22 16:00 11/26/22 16:00 Temperature 98.8 F Pulse Rate 140 H 140 H Pulse Rate [Monitor] Respiratory Rate 21 H Blood Pressure 137/104 H Pulse Oximetry 100 Oxygen Delivery Room Air 11/26/22 18:00 11/26/22 20:32 11/26/22 20:00 Temperature 101.3 F H Pulse Rate 114 H 125 H Pulse Rate [Monitor] 119 H Respiratory Rate 24 H Blood Pressure 151/96 H Pulse Oximetry 95 Oxygen Delivery 11/26/22 20:00 11/26/22 20:00 11/26/22 22:00 Temperature Pulse Rate 125 H 130 H Pulse Rate [Monitor] Respiratory Rate Blood Pressure Pulse Oximetry 95 Oxygen Delivery Room Air 11/26/22 23:48 11/27/22 00:00 11/27/22 00:00 Temperature 99.5 F Pulse Rate 127 H 147 H Pulse Rate [Monitor] Respiratory Rate 26 H Blood Pressure 144/99 H Pulse Oximetry 99 99 Oxygen Delivery Room Air 11/27/22 00:00 11/27/22 02:00 11/27/22 03:44 Temperature Pulse Rate 110 H 128 H Pulse Rate [Monitor] 135 H Respiratory Rate 26 H Blood Pressure 132/103 H Pulse Oximetry 97 Oxygen Delivery 11/27/22 04:15 11/27/22 04:00 11/27/22 04:00 Temperature 100.6 F H Pulse Rate 128 H Pulse Rate [Monitor] 130 H Respirato
[2022-11-27] MEDS: POTASSIUM CHLORIDE 20 MEQ PACKET (FOR LIQUID) 40 MEQ PO (15:57)
[2022-11-27] MEDS: MAGNESIUM SULF 2 GM/WATER 50ML 2 GM/50 ML BAG IVPB (15:57)
[2022-11-27 16:46] LABS: Glucose Point of Care 105 mg/dl (65-105)
[2022-11-27 16:53] LABS: Glucose Point of Care 103 mg/dl (65-105)
--- NOTE | 2022-11-27 17:42 | PC.NURSE ---
Returned from GI Lab via stretcher. Report received from [ Fara RN @ [phone]
[2022-11-27] MEDS: chlordiazePOXIDE (*CRX) 25 MG CAPSULE 75 MG PO (17:48)
[2022-11-27 18:17] LABS: Sodium 132 mmol/L (137-145)
[2022-11-27 23:00] LABS: Glucose Point of Care 91 mg/dl (65-105)
[2022-11-28] VITALS (14 sets, daily range): BP systolic 129–139; BP diastolic 86–90; PULSE 91–130; RESP 16–20; TEMP 36.6–37.2; O2SAT 96–100
[2022-11-28] MEDS: chlordiazePOXIDE (*CRX) 25 MG CAPSULE 75 MG PO ×2 (00:36→05:12)
[2022-11-28] MEDS: SODIUM CHLORIDE 0.9% IV 1,000 ML 150 ML IV CONT ×2 (00:37→05:14)
[2022-11-28] MEDS: LORazepam INJ (*CRX) 2 MG/ML VIAL 4 MG IV PUSH (01:10)
[2022-11-28 05:01] LABS: Basophils Percent Auto 0.1 % (0.2-1.2); Hematocrit 44.7 % (42.0-52.0); Immature Granulocyte Absolute 0.08 K/mm3 (0.00-0.031); Immature Granulocyte Percent A 0.6 % (0-0.5); Lymphocytes Absolute Auto 0.96 K/mm3 (0.9-3.2); Mean Corpuscular HGB Conc 33.6 g/dl (32-36); Mean Corpuscular Hemoglobin 31.5 pg (26-34); Mean Corpuscular Volume 93.9 fl (80-100); Mean Platelet Volume 9.8 fl (7.4-10.4); Monocytes Absolute Auto 1.1 K/mm3 (0.1-0.6); Monocytes Percent Auto 8.2 % (2.6-8.5); Neutrophils Absolute Auto 11.6 K/mm3 (1.3-6.7); Neutrophils Percent Auto 84.1 % (45.5-73.1); Platelet Count Result 128 k/mm3 (150-375); Red Blood Count 4.76 M/mm3 (4.6-6.20); Red Cell Distribution Width 11.7 % (11.5-14.5); White Blood Count 13.7 K/mm3 (4.5-10.0)
[2022-11-28 05:11] LABS: Alanine Aminotransferase 45 U/L (6-50); Albumin Level 3.6 g/dL (3.5-5.1); Alkaline Phosphatase 83 U/L (38-126); Anion Gap 5 mmol/L (8-16); Aspartate Amino Transferase 30 U/L (17-59); Bilirubin,Total 0.9 mg/dL (0.2-1.3); Blood Urea Nitrogen 5 mg/dL (9-20); Calcium 8.4 mg/dL (8.4-10.2); Carbon Dioxide 25 mmol/L (22-30); Chloride 102 mmol/L (98-107); Estimated CRCL calculation 167 ml/min; Estimated Glomerular Filt Rate > 60; Glucose 101 mg/dL (65-110); Lipase 421 U/L (23-300); Magnesium 2.5 mg/dL (1.6-2.3); Potassium 3.7 mmol/L (3.4-5.0); Sodium 132 mmol/L (137-145)
[2022-11-28] MEDS: LORazepam INJ (*CRX) 2 MG/ML VIAL IV PUSH ×3 (05:14→23:18)
[2022-11-28] MEDS: PANTOPRAZOLE SODIUM IV 40 MG VIAL IV PUSH (08:26)
[2022-11-28] MEDS: FOLIC ACID 1 MG/0.2 ML INJ IV PUSH (08:27)
[2022-11-28] MEDS: THIAMINE HCL 200 MG/2 ML VIAL 100 MG IV PUSH (08:27)
--- NOTE | 2022-11-28 09:23 | PM.IMPN ---
Progress Note: A&P Assessment and Plan (1) Acute alcoholic pancreatitis: Code(s): K85.20 - Alcohol induced acute pancreatitis without necrosis or infection Status: Acute Assessment and Plan: The patient drinks approximately 1 pt of alcohol a day. The patient stated that he was going to go to rehab but had abdominal pain and came to the emergency room instead. His lipase was 2159. CT scan showing acute interstitial pancreatitis and diffuse hepatic steatosis. Etiology of his pancreatitis is probably alcohol. He was ordered a banana bag and then IV fluids. WBC climbed to 15K and was having fevers but WBC trending down and fevers resolved without abx. CXR showing small lung volumes. UA not c/w UTI. BCx NGTD. Suspect related to pancreatitis and/or atelectasis. Lipase now 421. Check LE venous doppler due to exam findings. EKG does show S1Q3T3 so consider CTA Chest but feel his tachycardia is more likely related to his pancreatitis and alcohol w/d. Check RUQ US and TG level for completeness. On a clear liquid diet which will advance as tolerated. Stop IV fluids. Back off on analgesics. Continue supportive care. (2) Alcohol abuse: Code(s): F10.10 - Alcohol abuse, uncomplicated Status: Acute Assessment and Plan: The patient stated to others that he is willing to go to rehab. Alcohol level 103 on admission. ur coordinator was consulted. CIWA levels noted and mostly well controlled. Continue with CIWA protocol. Continue thiamine/folate. Continue scheduled Librium but continue to decrease the dose. Ativan is available prn as well. The patient was advised to abstain from alcohol. (3) Hyponatremia: Code(s): E87.1 - Hypo-osmolality and hyponatremia Status: Acute Assessment and Plan: Sodium was 133 on admission but has dropped to 123. Probably related to 3rd spacing of fluids. Sodium climbing slowly to 132. Continue to monitor. Stop IV fluids. (4) Elevated LFTs: Code(s): R79.89 - Other specified abnormal findings of blood chemistry Status: Acute Assessment and Plan: AST/ALT elevated on admission. Bili normal. Hepatitis panel, HIV negative. Suspect elevated LFTs related to pancreatitis and/or alcoholic hepatitis. levels normal now. Follow (5) Hepatic steatosis: Code(s): K76.0 - Fatty (change of) liver, not elsewhere classified Status: Acute Assessment and Plan: Related to daily alcohol use. Plan DVT prophylaxis with SCDs; Code status full code Subjective Date/time seen: 11/28/22 09:23 Interval history: 31yo male with hx of alcoholism here for abdominal pain and found to have pancreatitis. Patient slept poorly last night. No appetite but no n/v. +BMs. No CP or SOB. No pleuritc CP. Requesting discharge. Exam Narrative: AF 98.4 139/88 120 18 96% ra Gen - NARD Chest - CTA bilaterally, nml RR CV - tachycardic, regular; Tele showing sinus tachycardia (but rate was 102 in room). Abd - Soft, ND, +BS, mild epigastric pain Ext - No pedal edema. +Rt Homans sign with possible cords. Psych - awake, alert and appropriate. Skin - Warm and dry Objective Data Vital Signs Vital Signs: Vital Signs - 24 hr 11/27/22 10:00 11/27/22 12:00 11/27/22 12:00 Temperature Pulse Rate 126 H 121 H Pulse Rate [Monitor] 121 H Respiratory Rate Blood Pressure 138/99 H Pulse Oximetry Oxygen Delivery 11/27/22 12:00 11/27/22 12:00 11/27/22 14:00 Temperature 98.1 F Pulse Rate 124 H 136 H Pulse Rate [Monitor] Respiratory Rate 17 Blood Pressure 138/99 H Pulse Oximetry 97 97 Oxygen Delivery Room Air 11/27/22 15:59 11/27/22 16:00 11/27/22 16:00 Temperature 97.4 F L Pulse Rate 118 H Pulse Rate [Monitor] 107 H Respiratory Rate 17 Blood Pressure 140/98 H Pulse Oximetry 98 98 Oxygen Delivery Room Air 11/27/22 16:00 11/27/22 18:00 11/27/22 20:00 Temperature 97.4 F L Pul
[2022-11-28] MEDS: NICOTINE (*PBKC) 21 MG PATCH 1 PATCH TRANSDERM (11:53)
[2022-11-28] MEDS: chlordiazePOXIDE (*CRX) 25 MG CAPSULE 50 MG PO ×3 (11:53→23:14)
[2022-11-28 11:55] LABS: Triglycerides 75 mg/dL (<150)
[2022-11-28 12:11] LABS: Glucose Point of Care 92 mg/dl (65-105)
[2022-11-28 12:34] LABS: Glucose Point of Care 98 mg/dl (65-105)
[2022-11-28 14:40] LABS: Glucose Point of Care 112 mg/dl (65-105)
[2022-11-28 23:49] LABS: Glucose Point of Care 92 mg/dl (65-105)
[2022-11-29] VITALS (13 sets, daily range): BP systolic 112–130; BP diastolic 82–98; PULSE 83–136; RESP 16–18; TEMP 36.2–36.9; O2SAT 94–99
[2022-11-29 05:31] LABS: Basophils Percent Auto 0.3 % (0.2-1.2); Eosinophils Percent Auto 0.3 % (0-4.4); Hemoglobin 14.5 g/dL (14.0-18.0); Immature Granulocyte Absolute 0.06 K/mm3 (0.00-0.031); Immature Granulocyte Percent A 0.5 % (0-0.5); Lymphocytes Absolute Auto 1.06 K/mm3 (0.9-3.2); Lymphocytes Percent Auto 9.7 % (18.3-44.2); Mean Corpuscular HGB Conc 34.5 g/dl (32-36); Mean Corpuscular Hemoglobin 32.2 pg (26-34); Mean Corpuscular Volume 93.3 fl (80-100); Mean Platelet Volume 9.9 fl (7.4-10.4); Monocytes Percent Auto 9.3 % (2.6-8.5); Neutrophils Absolute Auto 8.8 K/mm3 (1.3-6.7); Neutrophils Percent Auto 79.9 % (45.5-73.1); Platelet Count Result 163 k/mm3 (150-375); Red Cell Distribution Width 11.7 % (11.5-14.5)
[2022-11-29 05:47] LABS: Alanine Aminotransferase 37 U/L (6-50); Albumin Level 3.5 g/dL (3.5-5.1); Alkaline Phosphatase 78 U/L (38-126); Anion Gap 3 mmol/L (8-16); Aspartate Amino Transferase 28 U/L (17-59); Bilirubin,Total 0.8 mg/dL (0.2-1.3); Blood Urea Nitrogen 7 mg/dL (9-20); Calcium 8.5 mg/dL (8.4-10.2); Carbon Dioxide 24 mmol/L (22-30); Chloride 104 mmol/L (98-107); Estimated CRCL calculation 167 ml/min; Estimated Glomerular Filt Rate > 60; Glucose 89 mg/dL (65-110); Lipase 831 U/L (23-300); Potassium 3.3 mmol/L (3.4-5.0); Sodium 131 mmol/L (137-145)
[2022-11-29] MEDS: chlordiazePOXIDE (*CRX) 25 MG CAPSULE 50 MG PO ×4 (06:31→23:37)
[2022-11-29] MEDS: LORazepam INJ (*CRX) 2 MG/ML VIAL IV PUSH ×4 (06:37→20:54)
[2022-11-29] MEDS: THIAMINE HCL 100 MG TABLET PO (09:57)
[2022-11-29] MEDS: NICOTINE (*PBKC) 21 MG PATCH 1 PATCH TRANSDERM (09:57)
[2022-11-29] MEDS: FOLIC ACID 1 MG TABLET PO (09:57)
[2022-11-29] MEDS: PANTOPRAZOLE 40 MG TABLET PO (09:57)
[2022-11-29] MEDS: POTASSIUM CHLORIDE INJ 40 MEQ in SODIUM CHLORIDE 0.9% IV 500 ML 130 MEQ IVPB (09:58)
--- NOTE | 2022-11-29 12:18 | PM.IMPN ---
Progress Note: A&P Assessment and Plan (1) Acute alcoholic pancreatitis: Code(s): K85.20 - Alcohol induced acute pancreatitis without necrosis or infection Status: Acute Assessment and Plan: The patient drinks approximately 1 pt of alcohol a day. The patient stated that he was going to go to rehab but had abdominal pain and came to the emergency room instead. His lipase was 2159. CT scan showing acute interstitial pancreatitis and diffuse hepatic steatosis. Etiology of his pancreatitis is probably alcohol. He was ordered a banana bag and then IV fluids. WBC climbed to 15K and was having fevers but WBC trending down and fevers resolved without abx. CXR showing small lung volumes. UA not c/w UTI. BCx NGTD. Suspect related to pancreatitis and/or atelectasis. Lipase now 421. Check LE venous doppler due to exam findings. EKG does show S1Q3T3 so consider CTA Chest but feel his tachycardia is more likely related to his pancreatitis and alcohol w/d. Check RUQ US and TG level for completeness. On a clear liquid diet which will advance as tolerated. Stop IV fluids. Back off on analgesics. Continue supportive care. (2) Alcohol abuse: Code(s): F10.10 - Alcohol abuse, uncomplicated Status: Acute Assessment and Plan: The patient stated to others that he is willing to go to rehab. Alcohol level 103 on admission. sales development coordinator was consulted. CIWA levels noted and mostly well controlled. Continue with CIWA protocol. Continue thiamine/folate. Continue scheduled Librium but continue to decrease the dose. Ativan is available prn as well. The patient was advised to abstain from alcohol. (3) Hyponatremia: Code(s): E87.1 - Hypo-osmolality and hyponatremia Status: Acute Assessment and Plan: Sodium was 133 on admission but has dropped to 123. Probably related to 3rd spacing of fluids. Sodium climbing slowly to 132. Continue to monitor. Stop IV fluids. (4) Elevated LFTs: Code(s): R79.89 - Other specified abnormal findings of blood chemistry Status: Acute Assessment and Plan: AST/ALT elevated on admission. Bili normal. Hepatitis panel, HIV negative. Suspect elevated LFTs related to pancreatitis and/or alcoholic hepatitis. levels normal now. Follow (5) Hepatic steatosis: Code(s): K76.0 - Fatty (change of) liver, not elsewhere classified Status: Acute Assessment and Plan: Related to daily alcohol use. Plan DVT prophylaxis with SCDs; Code status full code Subjective Date/time seen: 11/29/22 12:18 Interval history: no complaints pain still present Exam Narrative: AF 98.4 139/88 120 18 96% ra Gen - NARD Chest - CTA bilaterally, nml RR CV - tachycardic, regular; Tele showing sinus tachycardia (but rate was 102 in room). Abd - Soft, ND, +BS, mild epigastric pain Ext - No pedal edema. +Rt Homans sign with possible cords. Psych - awake, alert and appropriate. Skin - Warm and dry Objective Data Vital Signs Vital Signs: Vital Signs - 24 hr 11/28/22 12:30 11/28/22 12:30 11/28/22 14:00 Temperature Pulse Rate 97 130 H Pulse Rate [Monitor] 97 Respiratory Rate Blood Pressure Pulse Oximetry Oxygen Delivery 11/28/22 16:00 11/28/22 16:30 11/28/22 16:30 Temperature 98.5 F Pulse Rate 91 101 H Pulse Rate [Monitor] 101 H Respiratory Rate 18 Blood Pressure 129/88 Pulse Oximetry 99 Oxygen Delivery 11/28/22 18:00 11/28/22 20:00 11/28/22 20:00 Temperature 97.8 F Pulse Rate 107 H 93 112 H Pulse Rate [Monitor] Respiratory Rate 16 Blood Pressure 129/89 Pulse Oximetry 100 Oxygen Delivery 11/28/22 20:00 11/28/22 22:00 11/29/22 00:00 Temperature 97.1 F L Pulse Rate 113 H 96 Pulse Rate [Monitor] Respiratory Rate 18 Blood Pressure 130/90 Pulse Oximetry 94 Oxygen Delivery Room Air 11/29/22 00:00 11/29/22 00:00 11/29/22 02:00 Temperature P
--- NOTE | 2022-11-29 16:15 | WPDGICN ---
Assessment and Plan Assessment and plan (1) Acute alcoholic pancreatitis: Code(s): K85.20 - Alcohol induced acute pancreatitis without necrosis or infection Status: Acute Assessment and Plan: This is the 2nd admission within the year for acute pancreatitis. CT scan shows: FINDINGS: The visualized portions of the lung bases demonstrate mild atelectasis. No pleural effusion. The heart size is normal. No pericardial effusion. There is diffuse hepatic steatosis. The gallbladder, spleen, and adrenal glands are normal. There is fat stranding around the pancreas, consistent with acute interstitial pancreatitis. Right kidney is normal. There is a 4 mm cyst in left kidney. There are no dilated loops of bowel. The appendix is normal. There are no pathologically enlarged lymph nodes. There is no free intraperitoneal fluid. There is moderate lower lumbar spondylosis. but I want to see him he was downstairs getting an MRCP. I am not sure that that will add anything at this point. The chances of him having choledocholithiasis as a cause of pancreatitis are slim. He understands that each episode of pancreatitis can be worse and that recurrent episodes can result in chronic pancreatitis with chronic pain and pancreatic insufficiency. (2) Elevated LFTs: Code(s): R79.89 - Other specified abnormal findings of blood chemistry Status: Acute Assessment and Plan: AST and ALT were both in the 120s. Alkaline phosphatase is normal as is bilirubin. This is consistent of course with alcohol abuse. (3) Alcohol abuse: Code(s): F10.10 - Alcohol abuse, uncomplicated Status: Acute Assessment and Plan: This needs to be addressed. If he continues to drink alcohol he is likely to develop cirrhosis and also recurrent episodes of pancreatitis, each of which may be worse. He had I had a long discussion regarding alcohol he states that he is firm in his intention to stay away from alcohol altogether. (4) Hepatic steatosis: Code(s): K76.0 - Fatty (change of) liver, not elsewhere classified Status: Acute Assessment and Plan: This is likely due to his alcohol abuse. He is not diabetic. Given the elevation of his enzymes, the steatosis and his alcohol use he is at risk for cirrhosis. Hopefully sharing this with him will encourage him to get treatment for his dependency. His LFTs have returned to normal which is encouraging GI Consult Note Consult date/time: 11/29/22 16:15 HPI: Hilario Arechiga is a 31 year old male Admitted with acute pancreatitis. He is a heavy drinker. He continues to drink alcohol. He was hospitalized several months ago with acute pancreatitis. He came to the emergency room several days ago with abdominal pain. Lipase was over 2000. It is slowly coming down. He was also tremulous on admission and there is of course concern for possible alcohol withdrawal syndrome. He has however now alert and comfortable. He acknowledges that he must completely give up alcohol. 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 Surrogate medical decision maker: Cristian Ambrocio, significant other. Code status: Full code. Smoking packs per day: 1 Smoking cigarettes per day: 20.0 Years smoked: 14 Smoking pack-years: 14.00 Smoking
[2022-11-29 23:39] LABS: Glucose Point of Care 89 mg/dl (65-105)
[2022-11-30] VITALS (7 sets, daily range): BP systolic 117–126; BP diastolic 78–93; PULSE 82–145; RESP 16–24; TEMP 36.5–37.1; O2SAT 95–100
[2022-11-30] MEDS: LORazepam INJ (*CRX) 2 MG/ML VIAL IV PUSH ×3 (01:49→09:07)
[2022-11-30 04:58] LABS: Basophils Percent Auto 0.4 % (0.2-1.2); Eosinophils Absolute Auto 0.1 K/mm3 (0-0.3); Eosinophils Percent Auto 1.2 % (0-4.4); Hematocrit 44.1 % (42.0-52.0); Hemoglobin 14.8 g/dL (14.0-18.0); Immature Granulocyte Absolute 0.04 K/mm3 (0.00-0.031); Immature Granulocyte Percent A 0.4 % (0-0.5); Lymphocytes Absolute Auto 1.19 K/mm3 (0.9-3.2); Lymphocytes Percent Auto 12.7 % (18.3-44.2); Mean Corpuscular HGB Conc 33.6 g/dl (32-36); Mean Corpuscular Hemoglobin 31.8 pg (26-34); Mean Corpuscular Volume 94.6 fl (80-100); Mean Platelet Volume 10.2 fl (7.4-10.4); Monocytes Percent Auto 10.7 % (2.6-8.5); Neutrophils Percent Auto 74.6 % (45.5-73.1); Platelet Count Result 192 k/mm3 (150-375); Red Blood Count 4.66 M/mm3 (4.6-6.20); Red Cell Distribution Width 11.8 % (11.5-14.5); White Blood Count 9.3 K/mm3 (4.5-10.0)
[2022-11-30 05:15] LABS: Alanine Aminotransferase 30 U/L (6-50); Albumin Level 3.5 g/dL (3.5-5.1); Alkaline Phosphatase 76 U/L (38-126); Anion Gap 8 mmol/L (8-16); Aspartate Amino Transferase 25 U/L (17-59); Bilirubin,Total 0.7 mg/dL (0.2-1.3); Blood Urea Nitrogen 9 mg/dL (9-20); Calcium 8.8 mg/dL (8.4-10.2); Carbon Dioxide 19 mmol/L (22-30); Chloride 104 mmol/L (98-107); Estimated CRCL calculation 167 ml/min; Estimated Glomerular Filt Rate > 60; Glucose 87 mg/dL (65-110); Lipase 895 U/L (23-300); Potassium 3.3 mmol/L (3.4-5.0); Sodium 131 mmol/L (137-145)
[2022-11-30] MEDS: chlordiazePOXIDE (*CRX) 25 MG CAPSULE 50 MG PO (06:03)
--- NOTE | 2022-11-30 07:04 | WPDGIPROGNO ---
Progress Note: A&P Assessment and Plan (1) Acute alcoholic pancreatitis: Code(s): K85.20 - Alcohol induced acute pancreatitis without necrosis or infection Status: Acute Assessment and Plan: This is the 2nd admission within the year for acute pancreatitis. CT scan shows: FINDINGS: The visualized portions of the lung bases demonstrate mild atelectasis. No pleural effusion. The heart size is normal. No pericardial effusion. There is diffuse hepatic steatosis. The gallbladder, spleen, and adrenal glands are normal. There is fat stranding around the pancreas, consistent with acute interstitial pancreatitis. Right kidney is normal. There is a 4 mm cyst in left kidney. There are no dilated loops of bowel. The appendix is normal. There are no pathologically enlarged lymph nodes. There is no free intraperitoneal fluid. There is moderate lower lumbar spondylosis. but I want to see him he was downstairs getting an MRCP. I am not sure that that will add anything at this point. The chances of him having choledocholithiasis as a cause of pancreatitis are slim. He understands that each episode of pancreatitis can be worse and that recurrent episodes can result in chronic pancreatitis with chronic pain and pancreatic insufficiency. (2) Elevated LFTs: Code(s): R79.89 - Other specified abnormal findings of blood chemistry Status: Acute Assessment and Plan: AST and ALT were both in the 120s. Alkaline phosphatase is normal as is bilirubin. This is consistent of course with alcohol abuse. 12/01/2022. Liver enzymes are normal now which is very encouraging. (3) Alcohol abuse: Code(s): F10.10 - Alcohol abuse, uncomplicated Status: Acute Assessment and Plan: This needs to be addressed. If he continues to drink alcohol he is likely to develop cirrhosis and also recurrent episodes of pancreatitis, each of which may be worse. He had I had a long discussion regarding alcohol he states that he is firm in his intention to stay away from alcohol altogether. (4) Hepatic steatosis: Code(s): K76.0 - Fatty (change of) liver, not elsewhere classified Status: Acute Assessment and Plan: This is likely due to his alcohol abuse. He is not diabetic. Given the elevation of his enzymes, the steatosis and his alcohol use he is at risk for cirrhosis. Hopefully sharing this with him will encourage him to get treatment for his dependency. His LFTs have returned to normal which is encouraging Plan He agrees he needs to stay away from alcohol. I told that he ought to have a follow-up CT scan in a couple of months to ensure that pancreatitis has completely resolved. Okay from my perspective to be discharged. Subjective Date/time seen: 11/30/22 07:04 he is feeling great. He has no pain now. He is eating well. He is hoping to go home today. From my perspective he can. Exam Const: General: alert Orientation/consciousness: patient oriented x3 Resp: Auscultation: clear to auscultation bilaterally Cardio: Rhythm: regular rhythm GI: Inspection: normal to inspection GI Palp: Yes Soft to palpation, No Tenderness to palpation present (GI), Yes No hepatosplenomegaly present and No Ascites present Auscultation: normal bowel sounds Neuro: General: patient oriented x3 Objective Data Vital Signs Vital Signs: Vital Signs - 24 hr 11/29/22 07:57 11/29/22 08:00 11/29/22 10:00 Temperature 36.9 C Pulse Rate 83 111 H 118 H Pulse Rate [Bilateral Pedal (Dorsalis Pedis) Palpation] Respiratory Rate 16 Blood Pressure 112/82 Pulse Oximetry 99 Oxygen Delivery 11/29/22 08:00 11/29/22 12:00 11/29/22 12:00 Temperature 36.6 C Pulse Rate 118 H 114 H 109 H Pulse Rate [Bilateral Pedal (Dorsalis Pedis) Palpation] Respiratory Rate 16 18 Blood Pressure 119/98 H Pulse Oximetry 99 97 Oxygen Delivery Room Air 11/29/22 12:00 11/29/22 12:00 11/29/22 14:00 Temp
[2022-11-30] MEDS: FOLIC ACID 1 MG TABLET PO (08:59)
[2022-11-30] MEDS: NICOTINE (*PBKC) 21 MG PATCH 1 PATCH TRANSDERM (08:59)
[2022-11-30] MEDS: PANTOPRAZOLE 40 MG TABLET PO (08:59)
[2022-11-30] MEDS: THIAMINE HCL 100 MG TABLET PO (09:00)
--- NOTE | 2022-11-30 10:35 | PC.NURSE ---
Dr Foley gave verbal order to take IV out and allow pt to shower prior to D/C home today, IV removed
--- NOTE | 2022-11-30 11:23 | PM.DS ---
DS: Admitting Diagnosis Discharge Date November 30, 2022 Admitting Diagnosis Necrotizing pancreatitis Alcohol abuse DS: Discharge Diagnosis Discharge Diagnosis (1) Acute alcoholic pancreatitis: Code(s): K85.20 - Alcohol induced acute pancreatitis without necrosis or infection Status: Acute Assessment and Plan: The patient drinks approximately 1 pt of alcohol a day. The patient stated that he was going to go to rehab but had abdominal pain and came to the emergency room instead. His lipase was 2159. CT scan showing acute interstitial pancreatitis and diffuse hepatic steatosis. Etiology of his pancreatitis is probably alcohol. He was ordered a banana bag and then IV fluids. WBC climbed to 15K and was having fevers but WBC trending down and fevers resolved without abx. CXR showing small lung volumes. UA not c/w UTI. BCx NGTD. Suspect related to pancreatitis and/or atelectasis. Lipase now 421. Check LE venous doppler due to exam findings. EKG does show S1Q3T3 so consider CTA Chest but feel his tachycardia is more likely related to his pancreatitis and alcohol w/d. Check RUQ US and TG level for completeness. On a clear liquid diet which will advance as tolerated. Stop IV fluids. Back off on analgesics. Continue supportive care. (2) Alcohol abuse: Code(s): F10.10 - Alcohol abuse, uncomplicated Status: Acute Assessment and Plan: The patient stated to others that he is willing to go to rehab. Alcohol level 103 on admission. coordinator cardiopulmonary services was consulted. CIWA levels noted and mostly well controlled. Continue with CIWA protocol. Continue thiamine/folate. Continue scheduled Librium but continue to decrease the dose. Ativan is available prn as well. The patient was advised to abstain from alcohol. (3) Hyponatremia: Code(s): E87.1 - Hypo-osmolality and hyponatremia Status: Acute Assessment and Plan: Sodium was 133 on admission but has dropped to 123. Probably related to 3rd spacing of fluids. Sodium climbing slowly to 132. Continue to monitor. Stop IV fluids. (4) Elevated LFTs: Code(s): R79.89 - Other specified abnormal findings of blood chemistry Status: Acute Assessment and Plan: AST/ALT elevated on admission. Bili normal. Hepatitis panel, HIV negative. Suspect elevated LFTs related to pancreatitis and/or alcoholic hepatitis. levels normal now. Follow (5) Hepatic steatosis: Code(s): K76.0 - Fatty (change of) liver, not elsewhere classified Status: Acute Assessment and Plan: Related to daily alcohol use. Plan DVT prophylaxis with SCDs; Code status full code DS: Summary Hospital Course Hospital Course: 31-year-old history of alcohol and drug abuse. Came in with pancreatitis. He has a history of chronic pancreatitis. He is otherwise asymptomatic he has does not have much pain no nausea or vomiting. He is eating. GI consult appreciated. He can be discharged. Time Spent with Patient Time attestation: Total time spent providing and/or coordinating discharge services: Exam Narrative: AF 98.4 139/88 120 18 96% ra Gen - NARD Chest - CTA bilaterally, nml RR CV - tachycardic, regular; Tele showing sinus tachycardia (but rate was 102 in room). Abd - Soft, ND, +BS, mild epigastric pain Ext - No pedal edema. +Rt Homans sign with possible cords. Psych - awake, alert and appropriate. Skin - Warm and dry DS: Data Data Completed and Pending Labs on day of discharge: Labs from last 24 hours 11/30/22 11/29/22 04:37 23:34 WBC 9.3 RBC 4.66 Hgb 14.8 Hct 44.1 MCV 94.6 MCH 31.8 MCHC 33.6 RDW 11.8 Plt Count 192 MPV 10.2 Immature Gran % (Auto) 0.4 Neut % (Auto) 74.6 H Lymph % (Auto) 12.7 L [place] % (Auto) 10.7 H Eos % (Auto) 1.2 Baso % (Auto) 0.4 Lymph # (Auto) 1.19 [place] # (Auto) 1.0 H Eos # (Auto) 0.1 Baso # (Auto) 0.0 Abs Immat Gran (auto) 0.04 H Absolute Ne
== END 2022-11-30 11:34 | disposition home or self-care (01) | DRG 282 ==
LOC: ANHED 13:18 → ANH3MEDSUR 13:48 → ANHICU 23:35 → ANHIMU 11-27 05:59
PROVIDERS: Emergency Medicine; Internal Medicine; Nurse Practitioner; Admitting Provider Hospitalist; Emergency Provider Physician Assistant; PCP Nurse Practitioner Family; Visit Provider Chiropractor
DX: K85.20 Alcohol induced acute pancreatitis without necrosis or infection (principal); K76.0 Fatty (change of) liver, not elsewhere classified; E87.1 Hypo-osmolality and hyponatremia; K86.0 Alcohol-induced chronic pancreatitis; Z20.822 Contact with and (suspected) exposure to COVID-19; F10.10 Alcohol abuse, uncomplicated; Z87.891 Personal history of nicotine dependence
CPT/HCPCS: 36415; 71045; 74177; 74183; 76376; 76705; 80053; 80074; 80307; 81001; 82948; 83605; 83615; 83690; 83735; 84295; 84443; 84478; 85025; 85055; 86703; 87040; 87636; 93005; 93970; 96361; 96374; 96375; 99285; A9270; A9577; C9113; G0378; G0379; G0432; J1170; J1630; J1885; J2060; J2270; J2405; J3411; J3475; J3480; J7030; J7040; Q9967

== ENCOUNTER 2023-02-21 14:24 | Emergency (ER) | payer OTHER, SELFPAY ==
--- NOTE | ~2023-02-21 | CT_ITS ---
EXAMINATION: CT abdomen pelvis w con DATE: 02/21/2023 20:02 INDICATION: pancreatitis TECHNIQUE: Computed tomography (CT) of the abdomen and pelvis was performed with 100 mL Omnipaque-350 intravenous contrast. Automated exposure control and iterative reconstruction technique were employe d. The dose-length product was 648.85 mGy-cm. COMPARISON: 11/25/2022. FINDINGS: Lower thorax: Minimal dependent atelectasis/scar. Liver: Significantly improved steatosis. Biliary/Gallbladder: Gallbladder is normal. No bile duct dilation. Pancreas: Inflammatory changes at the pancreatic head/uncinate process and surrounding the adjacent C -loop of the duodenum. 1.8 cm low density within the pancreatic head/uncinate process. Inflammatory c hange and fluid extends along the bilateral anterior renal fascia. Spleen: Normal. Adrenals:No mass. Kidneys: No suspicious mass, obstructing stone, or hydronephrosis. GI tract: Mild distal esophageal and moderate antral wall edema. No small or large bowel dilation. No rmal appendix. Mesentery/Peritoneum: No ascites, mass, or free air. Retroperitoneum: No mass. Pelvis: Pelvic organs are within normal limits. Soft Tissues: Soft tissues and body wall unremarkable. Bones: No acute osseous finding. IMPRESSION: Persistent but improved hepatic steatosis. Findings concerning for recurrent acute interstitial pancreatitis versus residual/recurrent necrotizi ng pancreatitis. There is adjacent duodenitis. A 1.8 cm unencapsulated low density in the pancreatic head, may represent an acute peripancreatic fluid collection versus acute necrotic collection. Reviewed, dictated and finalized at location [facility]. [facility]PER IMPRESSION: Persistent but improved hepatic steatosis. Findings concerning for recurrent acute interstitial pancreatitis versus residu al/recurrent necrotizing pancreatitis. There is adjacent duodenitis. A 1.8 cm u nencapsulated low density in the pancreatic head, may represent an acute peripa ncreatic fluid collection versus acute necrotic collection.
[2023-02-21 14:27] VITALS: BP 169/96; PULSE 114; RESP 16; TEMP 36.7; O2SAT 100
[2023-02-21 15:12] LABS: Basophils Percent Auto 0.3 % (0.2-1.2); Hematocrit 50.6 % (42.0-52.0); Hemoglobin 16.8 g/dL (14.0-18.0); Immature Granulocyte Absolute 0.04 K/mm3 (0.00-0.031); Immature Granulocyte Percent A 0.3 % (0-0.5); Lymphocytes Absolute Auto 1.58 K/mm3 (0.9-3.2); Lymphocytes Percent Auto 13.6 % (18.3-44.2); Mean Corpuscular HGB Conc 33.2 g/dl (32-36); Mean Corpuscular Hemoglobin 30.2 pg (26-34); Mean Corpuscular Volume 90.8 fl (80-100); Mean Platelet Volume 10.5 fl (7.4-10.4); Monocytes Absolute Auto 0.7 K/mm3 (0.1-0.6); Monocytes Percent Auto 6.4 % (2.6-8.5); Neutrophils Absolute Auto 9.2 K/mm3 (1.3-6.7); Neutrophils Percent Auto 79.4 % (45.5-73.1); Platelet Count Result 224 k/mm3 (150-375); Red Blood Count 5.57 M/mm3 (4.6-6.20); White Blood Count 11.6 K/mm3 (4.5-10.0)
[2023-02-21 15:22] LABS: Alanine Aminotransferase 22 U/L (6-50); Albumin Level 4.8 g/dL (3.5-5.1); Alkaline Phosphatase 98 U/L (38-126); Anion Gap 15 mmol/L (8-16); Aspartate Amino Transferase 26 U/L (17-59); Blood Urea Nitrogen 6 mg/dL (9-20); Calcium 9.7 mg/dL (8.4-10.2); Carbon Dioxide 24 mmol/L (22-30); Chloride 101 mmol/L (98-107); Estimated CRCL calculation 145 ml/min; Estimated Glomerular Filt Rate > 60; Glucose 111 mg/dL (65-110); Lipase 876 U/L (23-300); Potassium 3.7 mmol/L (3.4-5.0); Sodium 140 mmol/L (137-145)
[2023-02-21 15:27] LABS: Appearance Urine Clear (Clear); Bacteria Urine None Seen /hpf; Bilirubin Urine Negative (Negative); Blood Urine Negative (Negative); Color Urine Dark Yellow (Yellow); Glucose Urine UA Negative (Negative); Ketones Urine 2+ mg/dL (Negative); Leukocyte Esterase Ur Trace LEU/UL (Negative); Nitrate Urine Negative (Negative); Non Pathogenic Casts 0-2; Protein Urine Trace mg/dL (Negative); RBC Urine 0-2 /hpf (0-2); Specific Grav Ur 1.021 (1.001-1.035); Squamous Epithelial Cell Urine None seen /hpf (Few); WBC Urine 0-5 /hpf
[2023-02-21 15:32] LABS: Add Urine Microscopic? YES
[2023-02-21 17:37] LABS: Lactate Dehydrogenase 161 U/L (120-246)
--- NOTE | 2023-02-21 18:15 | ED.ABDPAIN ---
HPI - Abdominal Pain General Chief Complaint: Abdominal Pain Stated Complaint: abd pain Time Seen by Provider: 02/21/23 17:17 History of Present Illness HPI narrative: Patient is a 30-year-old male who presents to the emergency department this afternoon complaining of mid epigastric abdominal pain. Patient states at that he does have a history of alcohol abuse and is trying to quit and checked himself into a rehab facility yesterday, however, dizzy abdominal pain he decided to come in and get evaluated. Patient admits that he has had pancreatitis 3 times in the past secondary to his alcohol abuse and states that this feels very similar to his last pancreatitis episode. Patient denies any chest pain, shortness of breath, nausea, vomiting, dysuria, hematuria, constipation, diarrhea, melena, hematochezia, fevers or chills. He also denies any headaches, dizziness, lightheadedness, blurry visions, dizziness, focal weakness, numbness and or tingling. There are no other modifying, alleviating, or precipitating factors at this time. Related Data Allergies Allergy/AdvReac Type Severity Reaction Status Date / Time No Known Allergies Allergy Verified 11/25/22 10:35 Review of Systems Review of Systems: All systems are reviewed and are negative unless stated otherwise in the HPI. 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 Surrogate medical decision maker: Cristian Ambrocio, significant other. Code status: Full code. Smoking packs per day: 1 Smoking cigarettes per day: 20.0 Years smoked: 14 Smoking pack-years: 14.00 Smoking status: Former smoker Tobacco type: cigarettes Alcohol intake: current Alcohol use details: One pint of whiskey a day. Substance use: current Substance use type: marijuana Lack of Transportation: No Lack of Food: Never True Current Housing: I Have Housing Concerned About Future Housing: No Difficulty Paying Gas/Electric Bills: No Difficulty Paying for Meds: No Currently Unemployed: No Education: High School Diploma/GED Difficulty w/ Childcare or Family Care: No Additional living arrangements comments: Lives in [place] with significant other. Occupation/Education: occupation Spiritual care concerns: No Exam Narrative: General: Alert, awake, afebrile, in no acute distress. HEENT: PERRL, no rhinorrhea, no post nasal drip, oropharynx clear. Neck: Trachea midline, no JVD, no lymphadenopathy. Cardiovascular: Regular rate and rhythm, no murmurs, rubs or gallops, no peripheral edema. Respiratory: Clear to auscultation bilaterally, no tachypnea, no wheezing, no rhonchi, no rubs, no respiratory distress. Abdomen: Soft, mild tenderness to palpation over the mid epigastric region, nondistended, no rebound, no guarding, no peritoneal signs. Musculoskeletal: No joint swelling or deformity, normal muscle tone. Skin: No rashes or petechia, no signs of infection. Psychiatric: Alert and oriented, normal behavior and judgment for situation. Neurological: Alert and oriented to person, place, and time. Follows all commands. No focal deficits, speech is clear and fluent. Course Vital Signs Vital signs: Vital Signs Temperature 98.0 F 02/21/23 14:27 Pulse Rate 114 H 02/21/23 14:27 Respiratory Rate 16 02/21/23 14:27 Blood Pressure 169/96 H 02/21/23 14:27 Pulse Oximetry 100 02/21/23 14:27 Oxygen Delivery Room Air 02/21/23
[2023-02-21 18:55] VITALS: BP 136/104; PULSE 74; RESP 20; O2SAT 100
[2023-02-21] MEDS: SODIUM CHLORIDE 0.9% IV 1,000 ML 999 ML IV CONT ×2 (19:47→21:04)
[2023-02-21] MEDS: LORazepam INJ (*CRX) 2 MG/ML VIAL 0.5 MG IV PUSH ×2 (19:47→22:14)
[2023-02-21] MEDS: KETOROLAC 15 MG/ML VIAL (*BKC) IV PUSH (19:51)
[2023-02-21] MEDS: MORPHINE SULFATE (*CRX) 4 MG/ML INJ IV PUSH (21:05)
[2023-02-21] MEDS: ONDANSETRON INJ 4 MG/2 ML VIAL IV PUSH (21:05)
[2023-02-21] MEDS: PANTOPRAZOLE SODIUM IV 40 MG VIAL IV PUSH (21:05)
[2023-02-21 22:19] VITALS: BP 141/97; PULSE 68; RESP 15; O2SAT 100
== END 2023-02-21 22:21 | disposition home or self-care (01) ==
PROVIDERS: Emergency Medicine; Emergency Provider Emergency Medicine; PCP Nurse Practitioner Family
DX: K76.0 Fatty (change of) liver, not elsewhere classified (principal); F10.20 Alcohol dependence, uncomplicated
CPT/HCPCS: 36415; 74177; 80053; 81001; 83615; 83690; 85025; 96361; 96374; 96375; 96376; 99284; C9113; J1885; J2060; J2270; J2405; J7030; Q9967

== ENCOUNTER 2023-06-25 18:57 | Emergency (ER) | payer OTHER, SELFPAY ==
[2023-06-25 19:01] VITALS: BP 137/94; PULSE 76; RESP 18; TEMP 36.4; O2SAT 100
--- NOTE | 2023-06-25 19:43 | ED.GENADULT ---
HPI - General Adult General Chief complaint: Psychiatric Symptoms Stated complaint: PSYCH Time Seen by Provider: 06/25/23 19:17 History of Present Illness HPI narrative: Patient 32-year-old gentleman presents emergency department chief complaint of suicidal ideation. The patient reports he has history of depression also has history of prior suicide attempts the patient reports that he has been feeling more depressed lately and been having increasing suicidal thoughts. Patient reports that he wishes harm himself by overdosing reports that he has had prior hospitalizations for suicidal ideation and reports that he has had an episode of pancreatitis in the past. Related Data Allergies Allergy/AdvReac Type Severity Reaction Status Date / Time No Known Allergies Allergy Verified 11/25/22 10:35 Review of Systems Review of Systems: A 10 system review of systems was completed on the patient and is negative except for what is stated in the HPI. Nursing and ancillary documentation was reviewed. 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 Surrogate medical decision maker: Cristian Ambrocio, significant other. Code status: Full code. Smoking packs per day: 1 Smoking cigarettes per day: 20.0 Years smoked: 14 Smoking pack-years: 14.00 Smoking status: Former smoker Tobacco type: cigarettes Alcohol intake: current Alcohol use details: One pint of whiskey a day. Substance use: current Substance use type: former substance user, marijuana, IV drugs and other Lack of Transportation: No Lack of Food: Never True Current Housing: I Have Housing Concerned About Future Housing: No Difficulty Paying Gas/Electric Bills: No Difficulty Paying for Meds: No Currently Unemployed: No Education: High School Diploma/GED Difficulty w/ Childcare or Family Care: No Additional living arrangements comments: Lives in [place] with significant other. Occupation/Education: occupation Spiritual care concerns: No Exam Narrative: GENERAL: Well-appearing, well-nourished, and in no acute distress. HEAD: Normocephalic, atraumatic. EYES: PERRLA and EOMI. ENT: Nares clear, no rhinorrhea or epistaxis. Mucous membranes moist. NECK: Supple. CHEST: Clear to auscultation. No respiratory distress. HEART: Regular rate and rhythm. No murmur heard. Normal peripheral pulses. ABDOMEN: Soft, nontender, nondistended, normal active bowel sounds. EXTREMITIES: Normal range of motion. No edema. SKIN: Warm, dry, no rash. NEURO: No focal deficits. Alert and oriented x3. PSYCH: Depressed mood and affect. Course Vital Signs Vital signs: Vital Signs Temperature 36.4 C 06/25/23 19:01 Pulse Rate 76 06/25/23 19:01 Respiratory Rate 18 06/25/23 19:01 Blood Pressure 137/94 H 06/25/23 19:01 Pulse Oximetry 100 06/25/23 19:01 Temperature 36.4 C 06/25/23 19:01 Pulse Rate 86 06/26/23 01:08 Respiratory Rate 15 06/26/23 01:08 Blood Pressure 132/92 H 06/26/23 01:08 Pulse Oximetry 99 06/26/23 01:08 Medical Decision Making [facility] Narrative Medical decision making narrative: Differential diagnosis includes acute intoxication, suicidal ideation, depression Laboratory studies were obtained the patient showed normal CBC normal CMP ETOH was initially elevated at 127 the patient was observed in the emergency department [facility]
[2023-06-25 20:11] LABS: Basophils Absolute Auto 0.1 K/mm3 (0.0-0.1); Basophils Percent Auto 0.6 % (0.2-1.2); Eosinophils Percent Auto 0.2 % (0-4.4); Hematocrit 49.2 % (42.0-52.0); Hemoglobin 16.6 g/dL (14.0-18.0); Immature Granulocyte Absolute 0.04 K/mm3 (0.00-0.031); Immature Granulocyte Percent A 0.3 % (0-0.5); Lymphocytes Absolute Auto 3.23 K/mm3 (0.9-3.2); Lymphocytes Percent Auto 26.1 % (18.3-44.2); Mean Corpuscular HGB Conc 33.7 g/dl (32-36); Mean Corpuscular Hemoglobin 29.3 pg (26-34); Mean Corpuscular Volume 86.9 fl (80-100); Mean Platelet Volume 10.6 fl (7.4-10.4); Monocytes Absolute Auto 0.7 K/mm3 (0.1-0.6); Monocytes Percent Auto 5.6 % (2.6-8.5); Neutrophils Absolute Auto 8.3 K/mm3 (1.3-6.7); Neutrophils Percent Auto 67.2 % (45.5-73.1); Platelet Count Result 292 k/mm3 (150-375); Red Blood Count 5.66 M/mm3 (4.6-6.20); Red Cell Distribution Width 12.9 % (11.5-14.5); White Blood Count 12.4 K/mm3 (4.5-10.0)
[2023-06-25 20:17] LABS: Appearance Urine Clear (Clear); Bilirubin Urine Negative (Negative); Blood Urine Negative (Negative); Color Urine Yellow (Yellow); Glucose Urine UA Negative (Negative); Ketones Urine Negative (Negative); Leukocyte Esterase Ur Negative LEU/UL (Negative); Nitrate Urine Negative (Negative); Protein Urine Negative (Negative); Urobilinogen Urine 0.2 mg/dL (<2.0); pH Urine 6.5 (5.0-9.0)
[2023-06-25 20:27] LABS: Amphetamine Screen Urine Negative (Negative); Barbiturate Screen Urine Negative (Negative); Benzodiazepines Screen Urine Negative (Negative); Cannabinoid Screen Urine Negative (Negative); Cocaine Screen Urine Negative (Negative); Methadone Screen Urine Negative (Negative); Opiate Screen Urine Negative (Negative); Phencyclidine Screen Urine Negative (Negative)
[2023-06-25 20:37] LABS: Alanine Aminotransferase 11 U/L (6-50); Albumin Level 4.6 g/dL (3.5-5.1); Alkaline Phosphatase 102 U/L (38-126); Anion Gap 10 mmol/L (8-16); Aspartate Amino Transferase 21 U/L (17-59); Bilirubin,Total 0.4 mg/dL (0.2-1.3); Blood Urea Nitrogen 8 mg/dL (9-20); Calcium 9.3 mg/dL (8.4-10.2); Carbon Dioxide 28 mmol/L (22-30); Chloride 104 mmol/L (98-107); Estimated CRCL calculation 112 ml/min; Estimated Glomerular Filt Rate > 60; Glucose 103 mg/dL (65-110); Potassium 4.6 mmol/L (3.4-5.0); Sodium 142 mmol/L (137-145)
[2023-06-25 20:45] LABS: Ethanol 127 mg/dL (<10)
[2023-06-25 20:47] LABS: Influenza A QL RT-PCR Negative (Negative); Influenza B QL RT-PCR Negative (Negative); RSV RNA, RT-PCR Negative (Negative); SARS-CoV-2 RNA PCR Negative (Negative)
[2023-06-25 20:52] LABS: Specific Grav Ur 1.002 (1.001-1.035)
[2023-06-25 20:53] LABS: Add Urine Microscopic? NO
[2023-06-26 00:31] LABS: Ethanol 41 mg/dL (<10)
[2023-06-26 01:08] VITALS: BP 132/92; PULSE 86; RESP 15; O2SAT 99
[2023-06-26] MEDS: ONDANSETRON HCL ODT 4 MG TABLET PO (01:40)
[2023-06-26] MEDS: LORazepam (*CRX) 0.5 MG TABLET PO (01:40)
[2023-06-26 03:40] VITALS: BP 136/88; PULSE 88; RESP 14; O2SAT 100
== END 2023-06-26 03:40 | disposition home or self-care (01) ==
PROVIDERS: Physician Assistant; Emergency Provider Emergency Medicine; PCP Nurse Practitioner Family
DX: R45.851 Suicidal ideations (principal); F10.129 Alcohol abuse with intoxication, unspecified; Y90.6 Blood alcohol level of 120-199 mg/100 ml; Z11.52 Encounter for screening for COVID-19; F32.A Depression, unspecified; Z87.891 Personal history of nicotine dependence
CPT/HCPCS: 36415; 80053; 80307; 84443; 85025; 87637; 99284; A9270

== ENCOUNTER 2023-10-25 11:27 | Emergency (ER) | payer SELFPAY ==
--- NOTE | ~2023-10-25 | CT_ITS ---
CT of the Abdomen and Pelvis: Indication: Pancreatitis Technique: 2.5 mm axial scans were obtained through the abdomen and pelvis following intravenous adm inistration of 100 cc of Omnipaque 350. Dose reduction technique was used on this scan by utilizing a utomated exposure control and iterative reconstruction technique. The dose-length product (DLP) was 8 44.39 mGy-cm. COMPARISON: 02/21/2023 Findings: Scans through the lung bases are unremarkable. There is diffuse hepatic steatosis. The spleen, pancreas, gallbladder, adrenals and kidneys are withi n normal limits. No evidence of aortic aneurysm. No lymphadenopathy. Probable mild wall thickening of the sigmoid colon. Questionable minimal inflammatory change. No lisa l obstruction. No abscess or free air. Images through the pelvis were performed. Urinary bladder unremarkable. No pelvic mass seen. No ascit es. Impression: Possible minimal acute sigmoid diverticulitis versus other colitis. No CT evidence for acute pancreatitis. Diffuse hepatic steatosis. Reviewed, dictated and finalized at location . Impression: Possible minimal acute sigmoid diverticulitis versus other colitis. No CT evidence for acute pancreatitis. Diffuse hepatic steatosis.
[2023-10-25 11:32] VITALS: BP 142/99; PULSE 88; RESP 18; TEMP 36.9; O2SAT 88
[2023-10-25 11:49] VITALS: BP 136/95; PULSE 72; RESP 13; O2SAT 95
--- NOTE | 2023-10-25 12:05 | ED.ABDPAIN ---
HPI - Abdominal Pain General Chief Complaint: Abdominal Pain Stated Complaint: abdominal pain Time Seen by Provider: 10/25/23 11:59 Source: patient Mode of arrival: ambulatory Limitations: no limitations History of Present Illness HPI narrative: 32 years old, epigastric pain started last night associated with nausea and vomiting, today no more nausea or vomiting but the pain still there. Patient drinks 1/5 of vodka daily for long time. History of pancreatitis. Denies any fever or chills. 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 Surrogate medical decision maker: Cristian Ambrocio, significant other. Code status: Full code. Smoking packs per day: 1 Smoking cigarettes per day: 20.0 Years smoked: 14 Smoking pack-years: 14.00 Smoking status: Former smoker Tobacco type: cigarettes Alcohol intake: current Alcohol use details: One pint of whiskey a day. Substance use: current Substance use type: former substance user, marijuana, IV drugs and other Lack of Transportation: No Lack of Food: Never True Current Housing: I Have Housing Concerned About Future Housing: No Difficulty Paying Gas/Electric Bills: No Difficulty Paying for Meds: No Currently Unemployed: No Education: High School Diploma/GED Difficulty w/ Childcare or Family Care: No Additional living arrangements comments: Lives in [place] with significant other. Occupation/Education: occupation Spiritual care concerns: No Exam Narrative: General appearance: Well-developed, well-nourished Skin: Normal color Head: Normocephalic, nontraumatic Eyes: Clear conjunctiva ENT: Oropharynx normal, ears normal, nose normal Neck: Supple, nontender Chest and respiratory: Airway patent, no respiratory distress, no accessory muscle use Heart: Regular rate/rhythm Abdomen: Soft, epigastric tenderness, no organomegaly, quiet bowel sounds Vascular: Normal peripheral pulses, normal capillary refill. Musculoskeletal: Normal range of motion, nontender back Neurologic: Alert and oriented ?3, [employer]INCIPAL is normal as tested, no gross motor deficit Course Vital Signs Vital signs: Vital Signs Temperature 36.9 C 10/25/23 11:32 Pulse Rate 88 10/25/23 11:32 Respiratory Rate 18 10/25/23 11:32 Blood Pressure 142/99 H 10/25/23 11:32 Pulse Oximetry 88 L 10/25/23 11:32 Temperature 36.9 C 10/25/23 11:32 Pulse Rate 76 10/25/23 14:08 Respiratory Rate 18 10/25/23 14:08 Blood Pressure 136/96 H 10/25/23 14:08 Pulse Oximetry 98 10/25/23 14:08 Oxygen Delivery Room Air 10/25/23 11:49 MDM - Abdominal Pain MDM Narrative Medical decision making narrative: Differential diagnosis include pancreatitis, esophagitis, GERD, gastritis secondary to alcoholism. Blood workup today showed normal lipase, normal WBC and electrolytes, elevated
[2023-10-25] MEDS: SODIUM CHLORIDE 0.9% IV 1,000 ML 999 ML IV CONT (12:14)
[2023-10-25 12:15] LABS: Basophils Percent Auto 0.8 % (0.2-1.2); Eosinophils Absolute Auto 0.1 K/mm3 (0-0.3); Hematocrit 44.3 % (42.0-52.0); Hemoglobin 15.3 g/dL (14.0-18.0); Immature Granulocyte Absolute 0.01 K/mm3 (0.00-0.031); Immature Granulocyte Percent A 0.2 % (0-0.5); Lymphocytes Absolute Auto 1.64 K/mm3 (0.9-3.2); Lymphocytes Percent Auto 32.9 % (18.3-44.2); Mean Corpuscular HGB Conc 34.5 g/dl (32-36); Mean Corpuscular Hemoglobin 30.4 pg (26-34); Mean Corpuscular Volume 88.1 fl (80-100); Mean Platelet Volume 9.3 fl (7.4-10.4); Monocytes Absolute Auto 0.4 K/mm3 (0.1-0.6); Monocytes Percent Auto 7.8 % (2.6-8.5); Neutrophils Absolute Auto 2.9 K/mm3 (1.3-6.7); Neutrophils Percent Auto 57.3 % (45.5-73.1); Platelet Count Result 139 k/mm3 (150-375); Red Blood Count 5.03 M/mm3 (4.6-6.20); Red Cell Distribution Width 14.3 % (11.5-14.5)
[2023-10-25] MEDS: ONDANSETRON INJ 4 MG/2 ML VIAL IV PUSH (12:19)
[2023-10-25] MEDS: HYDROmorphone HCL INJ (*CRX) 1 MG/ML SYR 0.5 MG IV PUSH (12:19)
[2023-10-25 12:26] LABS: Alanine Aminotransferase 101 U/L (6-50); Albumin Level 4.6 g/dL (3.5-5.1); Alkaline Phosphatase 132 U/L (38-126); Anion Gap 13 mmol/L (4-12); Aspartate Amino Transferase 129 U/L (17-59); Bilirubin,Total 0.5 mg/dL (0.2-1.3); Blood Urea Nitrogen 8 mg/dL (9-20); Calcium 8.8 mg/dL (8.4-10.2); Carbon Dioxide 22 mmol/L (22-30); Chloride 105 mmol/L (98-107); Estimated CRCL calculation 170 ml/min; Estimated Glomerular Filt Rate > 60; Glucose 107 mg/dL (65-110); Lipase 90 U/L (23-300); Sodium 140 mmol/L (137-145)
[2023-10-25 12:32] LABS: Appearance Urine Cloudy (Clear); Bacteria Urine None Seen /hpf; Bilirubin Urine Negative (Negative); Blood Urine Negative (Negative); Color Urine Yellow (Yellow); Glucose Urine UA Negative (Negative); Ketones Urine Trace mg/dL (Negative); Leukocyte Esterase Ur Negative LEU/UL (Negative); Nitrate Urine Negative (Negative); Non Pathogenic Casts 0-2; Protein Urine Trace mg/dL (Negative); RBC Urine 0-2 /hpf (0-2); Specific Grav Ur 1.019 (1.001-1.035); Squamous Epithelial Cell Urine None Seen /hpf (Few); Urobilinogen Urine 0.2 mg/dL (<2.0); WBC Urine 0-5 /hpf (0-3)
[2023-10-25 12:37] LABS: Add Urine Microscopic? YES
[2023-10-25 14:08] VITALS: BP 136/96; PULSE 76; RESP 18; O2SAT 98
== END 2023-10-25 14:10 | disposition home or self-care (01) ==
PROVIDERS: Student in an Organized Health Care Education/Training Program; Emergency Provider Emergency Medicine
DX: K57.32 Diverticulitis of large intestine without perforation or abscess without bleeding (principal); R74.01 Elevation of levels of liver transaminase levels; F10.20 Alcohol dependence, uncomplicated; E80.6 Other disorders of bilirubin metabolism; Z87.891 Personal history of nicotine dependence; K76.0 Fatty (change of) liver, not elsewhere classified
CPT/HCPCS: 36415; 74177; 80053; 81001; 83690; 85025; 96361; 96374; 96375; 99284; J1170; J2405; J7030; Q9967

== ENCOUNTER 2024-04-28 12:44 | Emergency (ER) | payer SELFPAY ==
[2024-04-28] VITALS (7 sets, daily range): BP systolic 89–112; BP diastolic 58–92; PULSE 64–87; RESP 13–18; TEMP 36.4–36.6; O2SAT 92–100
--- NOTE | ~2024-04-28 | CT_ITS ---
EXAMINATION: CT abdomen pelvis w con DATE: 04/28/2024 14:33 INDICATION: Abdominal pain. TECHNIQUE: Computed tomography (CT) of the abdomen and pelvis was performed with 100 mL Omnipaque 350 intravenous contrast. Automated exposure control and iterative reconstruction technique were employe d. The dose-length product was 504.75 mGy-cm. COMPARISON: CT abdomen and pelvis 10/25/2023, abdomen MRI 11/29/2022 FINDINGS: The visualized portions of lung bases demonstrate mild atelectasis. No pleural effusion. Th e heart size is normal. No pericardial effusion. The liver, gallbladder, spleen, pancreas, adrenal gl ands, and kidneys are normal. There are no dilated loops of bowel. The appendix is normal. There are no pathologically enlarged lymph nodes. There is no free intraperitoneal fluid. There is mild thoraci c spondylosis and severe lower lumbar spondylosis. IMPRESSION: 1. No etiology for the patient's symptoms. Reviewed, dictated and finalized at location B. RELIEF
[2024-04-28] MEDS: MORPHINE SULFATE (*CRX) 4 MG/ML INJ IV PUSH (14:09)
[2024-04-28] MEDS: ONDANSETRON INJ 4 MG/2 ML VIAL IV PUSH (14:09)
[2024-04-28] MEDS: SODIUM CHLORIDE 0.9% IV 1,000 ML 999 ML IV CONT (14:09)
[2024-04-28 14:10] LABS: Basophils Absolute Auto 0.1 K/mm3 (0.0-0.1); Basophils Percent Auto 0.6 % (0.2-1.2); Eosinophils Absolute Auto 0.1 K/mm3 (0-0.3); Eosinophils Percent Auto 0.9 % (0-4.4); Hematocrit 43.9 % (42.0-52.0); Hemoglobin 14.6 g/dL (14.0-18.0); Immature Granulocyte Absolute 0.03 K/mm3 (0.00-0.031); Immature Granulocyte Percent A 0.3 % (0-0.5); Lymphocytes Absolute Auto 2.18 K/mm3 (0.9-3.2); Lymphocytes Percent Auto 22.2 % (18.3-44.2); Mean Corpuscular HGB Conc 33.3 g/dl (32-36); Mean Corpuscular Hemoglobin 29.4 pg (26-34); Mean Corpuscular Volume 88.3 fl (80-100); Mean Platelet Volume 10.3 fl (7.4-10.4); Monocytes Absolute Auto 0.5 K/mm3 (0.1-0.6); Monocytes Percent Auto 5.2 % (2.6-8.5); Neutrophils Percent Auto 70.8 % (45.5-73.1); Platelet Count Result 204 k/mm3 (150-375); Red Blood Count 4.97 M/mm3 (4.6-6.20); Red Cell Distribution Width 12.4 % (11.5-14.5); White Blood Count 9.8 K/mm3 (4.5-10.0)
[2024-04-28 14:22] LABS: Alanine Aminotransferase 12 U/L (6-50); Albumin Level 3.8 g/dL (3.5-5.1); Alkaline Phosphatase 84 U/L (38-126); Anion Gap 8 mmol/L (4-12); Aspartate Amino Transferase 17 U/L (17-59); Bilirubin,Total 0.5 mg/dL (0.2-1.3); Blood Urea Nitrogen 11 mg/dL (9-20); Calcium 8.6 mg/dL (8.4-10.2); Carbon Dioxide 27 mmol/L (22-30); Chloride 105 mmol/L (98-107); Estimated CRCL calculation 102 ml/min; Estimated Glomerular Filt Rate > 60; Ethanol < 10 mg/dL (<10); Glucose 91 mg/dL (65-110); Lipase 40 U/L (23-300); Potassium 3.7 mmol/L (3.4-5.0); Sodium 140 mmol/L (137-145)
--- NOTE | 2024-04-28 15:37 | ED_ITS ---
HPI - General Adult General Chief complaint: Abdominal Pain Stated complaint: abdominal pain Time Seen by Provider: 04/28/24 13:35 History of Present Illness HPI narrative: Patient 33-year-old gentleman presents emergency department chief complaint of abdominal pain. The patient has prior history of pancreatitis reports that it was secondary to alcohol abuse in the past. Patient reports that he has not drank in several months reports that he started having severe epigastric pain patient reports the symptoms are not improved by anything reports that he has had some nausea with this as well. Related Data Allergies Allergy/AdvReac Type Severity Reaction Status Date / Time No Known Allergies Allergy Verified 04/28/24 13:03 Review of Systems 2 Review of Systems: A 10 system review of systems was completed on the patient and is negative except for what is stated in the HPI. Nursing and ancillary documentation was reviewed. 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 Surrogate medical decision maker: Cristian Ambrocio, significant other. Code status: Full code. Smoking packs per day: 1 Smoking cigarettes per day: 20.0 Years smoked: 14 Smoking pack-years: 14.00 Smoking status: Former smoker Tobacco type: cigarettes Alcohol intake: current Alcohol use details: One pint of whiskey a day. Substance use: current Substance use type: former substance user, marijuana, IV drugs and other Lack of Transportation: No Lack of Food: Never True Current Housing: I Have Housing Concerned About Future Housing: No Difficulty Paying Gas/Electric Bills: No Difficulty Paying for Meds: No Currently Unemployed: No Education: High School Diploma/GED Difficulty w/ Childcare or Family Care: No Additional living arrangements comments: Lives in [place] with significant other. Occupation/Education: occupation Spiritual care concerns: No Exam 2 Narrative: GENERAL: Well-appearing, well-nourished, and in no acute distress. HEAD: Normocephalic, atraumatic. EYES: PERRLA and EOMI. ENT: Nares clear, no rhinorrhea or epistaxis. Mucous membranes moist. NECK: Supple. CHEST: Clear to auscultation. No respiratory distress. HEART: Regular rate and rhythm. No murmur heard. Normal peripheral pulses. ABDOMEN: Soft, tenderness to palpation in the epigastric, nondistended, normal active bowel sounds. EXTREMITIES: Normal range of motion. No edema. SKIN: Warm, dry, no rash. NEURO: No focal deficits. Alert and oriented x3. PSYCH: Normal mood and affect. Course Vital Signs Vital signs: Vital Signs Temperature 36.4 C L 04/28/24 13:01 Pulse Rate 87 04/28/24 13:01 Respiratory Rate 14 04/28/24 13:01 Blood Pressure 108/92 H 04/28/24 13:01 Pulse Oximetry 100 04/28/24 13:01 Oxygen Delivery Room Air 04/28/24 13:01 Temperature 36.6 C 04/28/24 13:25 Pulse Rate 79 04/28/24 13:25 Respiratory Rate 18 04/28/24 13:25 Blood Pressure 105/86 04/28/24 13:25 Pulse Oximetry 98 04/28/24 13:25 Oxygen Delivery Room Air 04/28/24 13:01 Medical Decision Making MDM Narrative Medical decision making narrative: Differential diagnosis includes pancreatitis, intra-abdominal infection, Laboratory studies were obtained on the patient showed normal CBC normal CMP lipase was normal Vital Signs Vital Signs: Vital Signs Temperature 36.4 C L 04/28/24 13:01 Pulse Rate 87 04/28/24 13:01 Respiratory Rate 14 04/28/24 13:01 Blood Pressure 108/92 H 04/28/24 13:01 Pulse Oximetry 100 04/28/24 13:01 Oxygen Delivery Room Air 04/28/24 13:01 Temperature 36.6 C 04/28/24 13:25 Pulse Rate 79 04/28/24 13:25 Respiratory Rate 18 04/28/24 13:25 Blood Pressure 105/86 04/28/24 13:25 Pulse Oximetry 98 04/28/24 13:25 Oxygen Delivery Room Air 04/28/24 13:01 Lab Data 04/28/24 14:00 04/28/24 14:00 Labs: Lab Results 04/28/24 Range/Units 14:00 WBC 9.8 (4.5-10.0) K/mm3 RBC 4.97 (4.6-6.20) M/mm3 Hgb 14.6 (14.0-18.0) g/dL Hct 43.9 (42.0-52.0) % MCV 88.3 (80-100) fl MCH 29.4 (26-34) pg MCHC 33.3 (32-36) g/dl RDW 12.4 (11.5-14.5) % Plt Count 204 (150-375) k/mm3 MPV 10.3 (7.4-10.4) fl Immature Gran % (Auto) 0.3 (0-0.5) % Neut % (Auto) 70.8 (45.5-73.1) % Lymph % (Auto) 22.2 (18.3-44.2) % Haakon % (Auto) 5.2 (2.6-8.5) % Eos % (Auto) 0.9 (0-4.4) % Baso % (Auto) 0.6 (0.2-1.2) % Lymph # (Auto) 2.18 (0.9-3.2) K/mm3 Haakon # (Auto) 0.5 (0.1-0.6) K/mm3 Eos # (Auto) 0.1 (0-0.3) K/mm3 Baso # (Auto) 0.1 (0.0-0.1) K/mm3 Abs Immat Gran (auto) 0.03 (0.00-0.031) K/mm3 Absolute Neuts (auto) 7.0 H (1.3-6.7) K/mm3 Absolute Nucleated RBC 0.000 (0.0-0.012) K/mm3 Nucleated RBC % 0.0 (0.0-0.2) % Sodium 140 (137-145) mmol/L Potassium 3.7 (3.4-5.0) mmol/L Chloride 105 (98-107) mmol/L Carbon Dioxide 27 (22-30) mmol/L Anion Gap 8 (4-12) mmol/L BUN 11 (9-20) mg/dL Creatinine 0.87 (0.7-1.3) mg/dL Estim Creat Clear Calc 102 ml/min Estimated GFR > 60 (59 - ) Glucose 91 (65-110) mg/dL Calcium 8.6 (8.4-10.2) mg/dL Total Bilirubin 0.5 (0.2-1.3) mg/dL AST 17 (17-59) U/L ALT 12 (6-50) U/L Alkaline Phosphatase 84 (38-126) U/L Total Protein 7.0 (6.3-8.2) g/dL Albumin 3.8 (3.5-5.1) g/dL Lipase 40 (23-300) U/L Ethyl Alcohol < 10 (<10) mg/dL Discharge Plan Discharge Clinical Impression: Abdominal pain Patient Disposition: Home, Self-Care Condition: Stable Instructions: Antibiotic Form, Abdominal Pain (ED) Patient Language: Urdu Prescriptions: No Action levofloxacin 750 mg tablet 750 mg PO DAILY Qty: 7 5RF metronidazole 500 mg tablet 500 mg PO Q8H 7 Days Qty: 21 0RF ondansetron HCl 4 mg tablet 4 mg PO Q4H Qty: 10 0RF Rx Instructions: 1st dose 1-2 hr before radiation chlordiazepoxide HCl 25 mg capsule 25 mg PO BID PRN (Reason: alcohol withdrawal) 10 Days Qty: 20 0RF Follow-up/Referrals: UNKNOWN,DOCTOR [Primary Care Provider] - Time of Disposition: 15:42
--- NOTE | 2024-04-28 16:40 | PC.NURSE ---
EDP aware of pt vitals charted at 1636. no new orders
--- OUTSIDE RECORDS SUMMARY | 2024-05-01 13:41 | XMS_ITS ---
Author Organization [facility] Address [address] [place] [address] Care Team Providers Care Animal Anatomy Teacher Name Role Phone Justin Harding Primary Care Provider Results Component Value Reference Range Notes 12 Panel Urine Drug Screen Reviewed date:03/26/2024 04:32:40 PM Interpretation: Performing Lab: Notes/Report: 0 THC neg CHANTELLE neg MOP (OPI) neg AMP neg MET neg BAR neg BZO Neg MDMA neg MTD neg OXY neg PCP neg BUP pos REASON FOR VISIT MAT F/U Medications Medication SIG (Take, Route, Fr equency, Duration) Notes Start Date End Date Status Lexapro 10 MG 1 tablet Orally Once a day for 30 day(s) Active SEROquel 300 MG 1 tablet at bedtime Orally Once a day for 30 day(s) Active busPIRone HCl 15 MG 1 tablet Orally Twice a day Active Suboxone 8-2 MG 1 film under the ton anabella and allow to dissolve Sublingual three times daily 03/26/2024 Active Gabapentin 300 MG 1 capsule Orally Thr ee Times Daily for 30 days Active chlordiazePOXIDE HCl Active Social History Tobacco Use: Social History Observation Description Date Details (start date - stop date) Current Smoker NA - NA Sex Assigned At : Social History Observation Description Sex Assigned At Male PRAPARE Question Answer Notes Date Completed/Updated: 10/08/2023 What is your current housing situation? I have h ousing Are you worried about losing your housing? No What is the highest level of school that you have finished? 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 Check all that apply I do not have problems meeting my needs Has lack of transportation k ept you from medical appointments, meetings, work or from getting things needed for daily living? No How often do you see or talk to people that you care about and feel close to? (For example: talking to friends on the phone, visiting friends or family, going to jehovah's witness or club meetings) More than 5 times a week How stressed are you? Stress is when someone feels tense, nervous, anxious, or can\t sleep at night because their mind is troubled A little bit In the past year have you sp ent more than 2 nights in a row in a correction, halfway, nursing home center, or juvenile correctional facility? No Are you a refugee? No What country are you from? [place] Do you feel physically and e motionally safe where you currently live? Yes In the past year, have you b een afraid of your partner or ex-partner? No PRAPARE Score: 4 Tobacco Control (Standard) Question Answer Notes Tobacco use: Current every day smoker Additional Findings: Tobacco user e-cigarette Problems Problem Type SNOMED Code ICD Code Onset Dates Problem Status W/U Status Risk Notes Problem Tobacco user ([id number]) Nicotine dependence, unspecified, uncomplicated (F17.200) Active confirmed Vital Signs Weight 195 lb 4 oz lbs 03/26/2024 Height 68 in 03/26/2024 BMI 29.68 kg/m2 03/26/2024 Blood pressure systolic 118 mm Hg 03/26/20 24 Blood pressure diastolic 82 mm Hg 024 Heart Rate 115 /min 03/26/2024 Oximetry 99 % 03/26/2024 Respiratory Rate 16 /min 03/26/2024 Encounters Encounter Location Date Provider Diagnosis [facility] [address] [place] [address] 03/26/2024 Justin Harding Opioid use disorder F11.99 ; Overweight (BMI 25.0-29.9) E66.3 ; Nutritional counseling Z71.3 and Nicotine dependence, unspecified, uncomplicated F17.200 Assessments Encounter Date Diagnosis (ICD Code) Assessment Notes Treatment Notes Treatment Clinical Notes Section Notes 03/26/2024 Opioid use disorder (ICD-10 - F11.99) 03/26/2024 Overweight (BMI 25.0-29.9) (ICD-10 - E66.3) 03/26/2024 Nutritional counseling (ICD-10 - Z71.3) 03/26/2024 Nicotine dependence, unspecified, uncomplicated (ICD-10 - F17.200) 03/26/2024 Other Potential side effects of buprenorphine discussed, as well as taking buprenorphine as prescribed. Dangers of using other controlled substances (prescribed or illegal/including benzodiazepines) with buprenorphine discussed. Patient understands taking other narcotics with buprenorphine could lead to respiratory distress and even . Patient understands that ALL treating providers/physici ans should be informed of buprenorphine use as part of a Medication Assisted Treatment program Plan Of Treatment Medication Medication Name Sig Start Date Stop Date Notes Suboxone 8-2 MG 1 film under the ton anabella and allow to dissolve Sublingual three times daily 03/26/2024 Treatment Notes Assessment Notes Other Potential side effects of buprenorphine discussed, as well as taking buprenorphine as prescribed. Dangers of using other controlled substances (prescribed or illegal/including benzodiazepines) with buprenorphine discussed. Patient understands taking other narcotics with buprenorphine could lead to respiratory distress and even . Patient understands that ALL treating providers/physicians should be informed of buprenorphine use as part of a Medication Assisted Treatment program Next Appt Details Follow Up: 4 Weeks, Reason: Progress Notes * Hilario ARECHIGADOB: [birth year] (33 yo M)Acc No.[id number]:03/26/2024 Patient:?Hilario ARECHIGA Provider:?Justin Harding, MSN, AGPCNP -BC :1990???Age:33 Y???Sex:Male Oren e:03/26/2024 Address:[facility] [id number] Check In:04:09 PM OCCUPATIONAL HEALTH PROFESSIONAL Subjective: * Chief Complaints: * ???MAT F/U * HPI: ???MAR follow-up:? 1 month MAR f/u and medication refill. Current dose continues working well, no cravings or setbacks. Reports doing well, no other issues or concerns. ?Medication Monitoring and Risk Mitigation?Up-to-date on ASAM recommended lab testing??No ?Prescribed a buprenorphine product??Yes ?Has patient had a buprenorphine and metabolite lab ordered/collected??Yes (see notes for date of last metabolite testing) ?Date of last buprenorphine and metabolite?08/10/2023 ?Prescription Drug Monitoring Program Review?Yes. No concerns at this time. ?Plan to address any concerns identified:?Recommending increased engagement with recovery support. ?Cravings, Setbacks, Substance use, and Stressors?Cravings since last visit:?No. Patient denies cravings since last visit. ?Setbacks since last visit??No, patient denies setbacks since last visit. ?Misuse of substances since last visit:?No, patient denies. ?Stressors?Yes, patient admits to stressors. See notes. ?Withdrawal and Intoxication Symptoms?Intoxication Symptoms:?No signs of intoxication are present during visit. ?Withdrawal Symptoms:?No withdrawal signs are present during visit. ?Mental Health, Support System, and Social Determinants?Mental Health Status?Stable. ?Support Systems Include:?Recovery support peer., Recovery support groups (like AA, NA, etc.), Personal support system (see notes). ?Court System Involvement??No ?Housing Stability:?Stable and safe housing. 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 ?Referrals needed:?Provider recommended the following referrals, but the patient declined: ?Referrals declined for:?Counseling/therapy, Primary care services, Psychiatric care services ?Recommended Wellness and Prevention Follow-up?Recommended Wellness and Prevention reviewed:?Yes. No additional orders/actions needed at this time. ?Other concerns:?Other Concerns??No. ?Narcan need?No. Patient already has Narcan. ???Interim History:?Emergency room visit?No.?Was hospitalized?No.?Depression Screening:?PHQ-9?Little interest or pleasure in doing things?Several days ?Feeling down, depressed, or hopeless?More than half the days ?Trouble falling or staying asleep, or sleeping too much?Several days ?Feeling tired or having little energy?More than half the days ?Poor appetite or overeating?More than half the days ?Feeling bad about yourself or that you are a failure, or have let yourself or your family down?Several days ?Trouble concentrating on things, such as reading the newspaper or watching television?More than half the days ?Moving or speaking so slowly that other people could have noticed; or the opposite, being so fidgety or restless that you have been moving around a lot more than usual?Several days ?Thoughts that you would be better off or of hurting yourself in some way?Not at all ?Total Score?12 ?Interpretation?Moderate Depression ?Intervention?Depression Screening Findings?Positive ?Follow-Up for Depression?No Referral necessary, patient involved in behavioral health treatment ???Screening:?[place] Suicide Severity Rating Scale (LF)?Do you want to initiate with?Screener form ?1. Wish to be : Have you wished you were or wished you could go to sleep and not wake up??No ?2. Suicidal Thoughts: Have you actually had any thoughts of killing yourself??No ?6. Suicide Behaviour: Have you ever done anything,started to do anything, or prepared to end your life??No ?Interpretation:?Low Risk ???Do Not Use CSSRS Interpretation and Follow Up Plan:?CSSRS Interpretation and Follow Up PlanCSSRS Interpretation and Follow Up Plan. ?CSSRS Interpretation and Follow Up Plan?CSSRS Screen documented using SF?Yes ?Moderate or High risk requires selection of a follow up plan?CSSRS No/Low: intervention not needed at this time ???Preventative Health and Wellness follow-up:?Action Plans for Clinical Quality Measures:?HIV Screening:?Discussed need for HIV screening. Patient declined. ?. * ROS:?All Other Systems:?Review of Systems (ROS)?All others negative except those mentioned in HPI.? * Medical History:? * Surgical History:?No Surgica l History documented. * Hospitalization/Major Diagno stic Procedure:?overdose 27001b pancreatitis 23/24pancreatitis 2023 * Family History:?Father: adelaide villarreal.?Mother: alive.?2 brother(s) , 2 sister(s) - healthy. .? 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 Check all that apply?I do not have problems meeting my needs ?Has lack of transportation kept you from medical appointments, meetings, work or from getting things needed for daily living??No ?How often do you see or talk to people that you care about and feel close to? (For example: talking to friends on the phone, visiting friends or family, going to jehovah's witness or club meetings)?More than 5 times a week ?How stressed are you? Stress is when someone feels tense, nervous, anxious, or can\t sleep at night because their mind is troubled?A little bit ?In the past year have you spent more than 2 nights in a row in a correction, halfway, nursing home center, or juvenile correctional facility??No ?Are you a refugee??No ?What country are you from??[place] ?Do you feel physically and emotionally safe where you currently live??Yes ?In the past year, have you been afraid of your partner or ex- partner??No ?PRAPARE Score:?4 ???Tobacco Use:?Tobacco Control (Standard)?Tobacco use:?Current every day smoker ?Additional Findings: Tobacco user?e-cigarette ???Miscellaneous:?Method of learning?Preferred method of learning:?Demonstration * Medications:?Takingchlordiaz ePOXIDE HCl SEROquel 300 MG Tablet 1 tablet at bedtime Orally Once a day busPIRone HCl 15 MG Tablet 1 tablet Orally Twice a day Lexapro 10 MG Tablet 1 tablet Orally Once a day Gabapentin 300 MG Capsule 1 capsule Orally Three Times Daily Suboxone 8-2 MG Film 1 film under the tongue and allow to dissolve Sublingual three times daily Taking chlordiazePOXIDE HCl Taking SEROquel 300 MG Tablet 1 tablet at bedtime Orally Once a day Taking busPIRone HCl 15 MG Tablet 1 tablet Orally Twice a day Taking Lexapro 10 MG Tablet 1 tablet Orally Once a day Taking Gabapentin 300 MG Capsule 1 capsule Orally Three Times Daily Taking Suboxone 8-2 MG Film 1 film under the tongue and allow to dissolve Sublingual three times daily * Allergies:?no[Allergies Veri fied] Objective: * Vitals:?Initials: hp, Wt:195 lb 4 oz, Ht: 68, BMI:29.68, BP:118/82, HR:115, Oxygen sat %:99, RR:16, Pain scale:0. * Examination: ???General Examination: ?GENERAL APPEARANCE:?pleasant, in no acute distress.?SKIN:?warm and dry.?LUNGS:?respirations regular and easy.?PSYCH:?full range of affect/positive mood, good eye contact, speech clear, alert, oriented x4.? Assessment: * Assessment: 1.?Overweight (BMI 25.0-29.9 ) - E66.3???2.?Opioid use disorder - F11.99 (Primary)???3.?Nutritional counseling - Z71.3???4.?Nicotine dependence, unspecified, uncomplicated - F17.200??? Plan: * Treatment: ? Value Reference Range ?THC neg * ?CHANTELLE neg * ?MOP (OPI) neg * ?AMP neg * ?MET neg * ?BAR neg * ?BZO Neg * ?MDMA neg * ?MTD neg * ?OXY neg * ?PCP neg * ?BUP pos 2.?Others? Notes:Potential side effects of buprenorphine discussed, as well as taking buprenorphine as prescribed. Dangers of using other controlled substances (prescribed or illegal/including benzodiazepines) with buprenorphine discussed. Patient understands taking other narcotics with buprenorphine could lead to respiratory distress and even . Patient understands that ALL treating providers/physicians should be informed of buprenorphine use as part of a Medication Assisted Treatment program? * Recommended Wellness and Pre vention Guidelines: * ?Status ?Alert ?Last Done ?Next Due ?Action Taken ?NONCOMPLIANT ?Alcohol use screening ?- ? ?- ?NONCOMPLIANT ?Depression followup ?02/27/2024 ?03/26/2024 ?- ?NONCOMPLIANT ?HIV screening ?- ?03/26/2024 ?- ?NONCOMPLIANT ?Influenza vaccine (high risk) ?- ?1 05/27/2023 ?- * Procedure Codes:?85557 BEHAV CHNG SMOKING 3-10 [id number] BODY MASS INDEX [id number] SPECIMEN [id number] MEDICAL NUTRITION, INDIV, [id number] SELF-MGMT EDUC & TRAIN, 1 PT * Preventive Medicine:? ??Counseling:?SMOKING:?Patient counselled on the dangers of tobacco use and urged to quit.?. ?Care goal follow-up plan:?BMI management provided?Yes ?Above Normal BMI Follow-up?Lifestyle education regarding diet * Follow Up:?4 Weeks * Care Plan Details* * PATIONAL HEALTH PROFESSIONAL Sign off status: Completed true * Provider:?Justin Harding, MSN, AGPCNP -BC Date:?03/26/2024 Generated for Printing/Faxing/eTransmitting on:?05/01/2024 01:41 PM OCCUPATIONAL HEALTH PROFESSIONAL History and Physical Notes * HPI (History of Present Illness) Category Sub-Category Detail Notes Category Not es Interim History Was hospitalized No Emergency room visit No Depression Screening PHQ-9 Little inte rest or pleasure in doing things: Several days Feeling down, depressed, or hopeless: Mo re than half the days Trouble falling or staying asleep, or sl eeping too much: Several days Feeling tired or having little energy: M ore than half the days Poor appetite or overeating: More than h allan the days Feeling bad about yourself o r that you are a failure, or have let yourself or your family down: Several days Trouble concentrating on thi ngs, such as reading the newspaper or watching television: More than half the days Moving or speaking so slowly that other people could have noticed; or the opposite, being so fidgety or restless that you have been moving around a lot more than usual: Several days Thoughts that you would be b zari off or of hurting yourself in some way: Not at all Total Score: 12 Interpretation: Moderate Depression Intervention Depression Screening Findings: P ositive Follow-Up for Depression: No Referral necessary, patient involved in behavioral health treatment Screening [place] Suicide Sev erity Rating Scale (LF) Do you want to initiate with: Screener form ?1. Wish to be : Have yo u wished you were or wished you could go to sleep and not wake up?: No ?2. Suicidal Thoughts: Have you actually had any thoughts of killing yourself?: No ?6. Suicide Behaviour: Have you ever done anything,started to do anything, or prepared to end your life?: No ?Interpretation:: Low Risk Do Not Use CSSRS Interpretation and Follow Up Plan CSSRS Interpretation and Follow Up Plan CSSRS Screen documented using SF: Yes Moderate or High risk requir es selection of a follow up plan: CSSRS No/Low: intervention not needed at this time MAR follow-up Medication Monitorin g and Risk Mitigation Up-to-date on ASAM recommended lab testing?: No Prescribed a buprenorphine product?: Yes ?Has patient had a buprenorp sanju and metabolite lab ordered/collected?: Yes (see notes for date of last metabolite testing) ??Date of last buprenorphine and metabol ite: 08/10/2023 Prescription Drug Monitoring Program Rev iew: Yes. No concerns at this time. Plan to address any concerns identified:: Recommending increased engagement with recovery support. Cravings, Setbacks, Substanc e use, and Stressors Cravings since last visit:: No. Patient denies cravings since last visit. Setbacks since last visit?: No, patient denies setbacks since last visit. Misuse of substances since last visit:: No, patient denies. Stressors: Yes, patient admits to stress ors. See notes. Withdrawal and Intoxication Symptoms Int oxication Symptoms:: No signs of intoxication are present during visit. Withdrawal Symptoms:: No withdrawal sign s are present during visit. Mental Health, Support Syste m, and Social Determinants Mental Health Status: Stable. Support Systems Include:: Re covery support peer., Recovery support groups (like AA, NA, etc.), Personal support system (see notes). Court System Involvement?: No Housing Stability:: Stable and safe hous ing. 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 Referrals needed:: Provider recommended the following referrals, but the patient declined: ?Referrals declined for:: Co unseling/therapy, Primary care services, Psychiatric care services Recommended Wellness and Pre vention Follow-up Recommended Wellness and Prevention reviewed:: Yes. No additional orders/actions needed at this time. Other concerns: Other Concerns?: No. Narcan need: No. Patient already has Rolando can. Preventative Health and Wellness follow-up Action Plans for Clinical Quality Measures: HIV Screening:: Discussed need for HIV screening. Patient declined. . Examination Category Sub-Category Detail Notes Category Not es General Examination GENERAL APPEARANCE: pleasant, in n o acute distress LUNGS: respirations regular and easy SKIN: warm and dry PSYCH: full range of affect /positive mood, good eye contact, speech clear, alert, oriented x4
--- OUTSIDE RECORDS SUMMARY | 2024-05-01 13:41 | XMS_ITS | Clinical Summary ---
Author Organization [facility] Address [address] [place] [address] Phone Care Team Providers Care Computer Discovery Teacher Name Role Phone Unavailable Primary Care Provider Unavailabl e Social History Tobacco Use Types Packs/Day Years Used Date Smoking Tobacco: Never Assessed Sex and Gender Information Value Date Recorded Sex Assigned at Not on file Legal Sex Male 4:29 PM CDT Gender Identity Not on file Sexual Orientation Not on file Plan of Treatment Not on file Insurance MEDICAID [employer]
--- OUTSIDE RECORDS SUMMARY | 2024-05-01 13:41 | XMS_ITS ---
Author Organization [facility] Address [address] [place] [address] Care Team Providers Care Break Off Worker Name Role Phone Justin Harding Primary Care Provider Allergies No Known Allergies Results Component Value Reference Range Notes 12 Panel Urine Drug Screen Reviewed date:02/27/2024 02:15:40 PM Interpretation: Performing Lab: Notes/Report: 0 THC neg CHANTELLE neg MOP (OPI) neg AMP neg MET neg BAR neg BZO neg MDMA neg MTD neg OXY neg PCP neg BUP POS REASON FOR VISIT MAR f/u Medications Medication SIG (Take, Route, Fr equency, Duration) Notes Start Date End Date Status Suboxone 8-2 MG 1 film under the ton anabella and allow to dissolve Sublingual three times daily 02/27/2024 Active SEROquel 300 MG 1 tablet at bedtime Orally Once a day for 30 day(s) Active busPIRone HCl 15 MG 1 tablet Orally Twice a day Active Lexapro 10 MG 1 tablet Orally Once a day for 30 day(s) Active Gabapentin 300 MG 1 capsule Orally Thr ee Times Daily for 30 days Active chlordiazePOXIDE HCl Active Social History Tobacco Use: Social History Observation Description Date Details (start date - stop date) Current Smoker NA - NA Sex Assigned At : Social History Observation Description Sex Assigned At Male Tobacco Control (Standard) Question Answer Notes Tobacco use: Current every day smoker Additional Findings: Tobacco user e-cigarette Vital Signs Weight 191.2 lbs 02/27/2024 Height 68 in 02/27/2024 BMI 29.07 kg/m2 02/27/2024 Blood pressure systolic 118 mm Hg 02/27/20 24 Blood pressure diastolic 64 mm Hg 024 Heart Rate 97 /min 02/27/2024 Oximetry 97 % 02/27/2024 Respiratory Rate 16 /min 02/27/2024 Encounters Encounter Location Date Provider Diagnosis [facility] [address] [address] 02/27/2024 Justin Harding Opioid use disorder F11.99 ; Overweight (BMI 25.0-29.9) E66.3 ; Nutritional counseling Z71.3 and Nicotine dependence, uncomplicated, unspecified nicotine product type F17.200 Assessments Encounter Date Diagnosis (ICD Code) Assessment Notes Treatment Notes Treatment Clinical Notes Section Notes 02/27/2024 Opioid use disorder (ICD-10 - F11.99) 02/27/2024 Overweight (BMI 25.0-29.9) (ICD-10 - E66.3) 02/27/2024 Nutritional counseling (ICD-10 - Z71.3) 02/27/2024 Nicotine dependence, uncomplicated, unspecified nicotine product type (ICD-10 - F17.200) 02/27/2024 Other Potential side effects of buprenorphine discussed, [...] allow to dissolve Sublingual three times daily 02/27/2024 Treatment Notes Assessment Notes Other Potential side [...] * Hilario ARECHIGADOB: [birth year] (33 yo M)Acc No.[id number]:02/27/2024 Patient:?Hilario ARECHIGA Provider:?Justin Harding, MSN, AGPCNP -BC :1990???Age:33 Y???Sex:Male Oren e:02/27/2024 Address:[address], [id number] Check In:02:03 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 1 month MAR f/u and medication refill. Current dose continues working well, no cravings or setbacks. Reports doing well, no other issues or concerns. ?Medication Monitoring and Risk Mitigation?Up-to-date on [facility] recommended lab testing??No ?Prescribed a buprenorphine product??Yes [...] ?Housing Stability:?Stable and safe housing. 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 ?Referrals needed:?Provider recommended the following referrals, but the patient declined: ?Referrals declined for:?Counseling/therapy, Primary care services, Psychiatric care services ?Recommended Wellness and Prevention Follow-up?Recommended Wellness and Prevention reviewed:?Yes. No additional orders/actions needed at this time. ?Other concerns:?Other Concerns??No. ?Narcan need?No. Patient already has Narcan. ???Interim History:?Emergency room visit?No.?Was hospitalized?No.?Depression Screening:?PHQ-9?Little interest or pleasure in doing things?More than half the days ?Feeling down, depressed, or hopeless?More than half the days ?Trouble falling or staying asleep, or sleeping too much?More than half the days ?Feeling tired or having little energy?Several days ?Poor appetite or overeating?More than half [...] yourself in some way?Not at all ?Total Score?13 ?Interpretation?Moderate Depression ?Intervention?Depression Screening Findings?Positive ?Follow-Up for Depression?No Referral necessary, patient involved in behavioral health treatment ???Screening:?[place] Suicide Severity Rating Scale (LF)?Do you want to initiate with?Screener form ?1. Wish to be : Have you wished you were or wished you could go to sleep and not wake up??No ?2. Suicidal Thoughts: Have you actually had any thoughts of killing yourself??No ?6. Suicide Behaviour: Have you ever done anything,started to do anything, or prepared to end your life??No ?Interpretation:?Low Risk ???CSSRS Interpretation and Follow Up Plan:? CSSRS Interpretation and Follow Up Plan. ?CSSRS Interpretation [...] in HPI.? * Medical History:? * Surgical History:?Denies Pas t Surgical History * Hospitalization/Major Diagno stic Procedure:?overdose [id number] pancreatitis 23/24pancreatitis 2023 * Family History:?Father: adelaide richard?Mother: alive.?2 brother(s) , 2 sister(s) - healthy. .? * Social History:?Primary Social History:?Living Arrangement?Living Arrangement:?Independent Living ?Is this a supportive environment??Yes ?Alcohol Use?Alcohol Use Frequency: Weekly or Daily ..?Illicit Substance Usage?Illicit Substance Usage: Yes Gas station heroin , Interested in quitting: Yes , Substance Used: Heroin ..?Employment Status?Employment Status:?Employed [employer] ???Tobacco Use:?Tobacco Control (Standard)?Tobacco use:?Current every day smoker ?Additional Findings: Tobacco user?e-cigarette ???Miscellaneous:?Method of learning?Preferred method of learning:?Demonstration * Medications:?TakingSuboxone 8-2 MG Film 1 film under the tongue and allow to dissolve Sublingual three times daily chlordiazePOXIDE HCl SEROquel 300 MG Tablet 1 tablet [...] Capsule 1 capsule Orally Three Times Daily * Allergies:?N.K.D.A.no[Allerg ies Verified] Objective: * Vitals:?Initials:jn, Wt:191. 2, Ht:68, BMI:29.07, BP:118/64, HR:97, Oxygen sat %:97, RR:16, Pain scale:0. * Examination: ???General Examination: ?GENERAL APPEARANCE:?pleasant, in no acute distress.?SKIN:?warm and dry.?LUNGS:?respirations regular and easy.?PSYCH:?full range of affect/positive mood, good eye contact, speech clear, alert, oriented x4.? Assessment: * Assessment: 1.?Overweight (BMI 25.0-29.9 ) - E66.3???2.?Opioid use disorder - F11.99 (Primary)???3.?Nutritional counseling - Z71.3???4.?Nicotine dependence, uncomplicated, unspecified nicotine product type - F17.200??? Plan: * Treatment: ? Value Reference Range ?THC neg * ?CHANTELLE neg * ?MOP (OPI) neg * ?AMP neg * ?MET neg * ?BAR neg * ?BZO neg * ?MDMA neg * ?MTD neg * ?OXY neg * ?PCP neg * ?BUP POS 2.?Others? Notes:Potential side effects of buprenorphine discussed, [...] screening ?- ? ?- ?NONCOMPLIANT ?Depression followup ?01/30/2024 ?02/27/2024 ?- ?NONCOMPLIANT ?HIV screening ?- ?02/27/2024 ?- ?NONCOMPLIANT ?Influenza vaccine (high risk) ?- ?1 04/28/2023 ?- * Procedure Codes:?35130 SPECI MEN [id number] BODY MASS INDEX [id number] MEDICAL NUTRITION, INDIV, [id number] BEHAV CHNG SMOKING 3-10 [id number] SELF-MGMT EDUC & TRAIN, 1 PT * Preventive Medicine:? ??Counseling:?Care goal follow-up plan:?BMI management provided?Yes ?Above Normal BMI Follow-up?Lifestyle education regarding diet ?SMOKING:?Patient counselled on the dangers of tobacco use and urged to quit.?. * Follow Up:?4 Weeks * Care Plan Details* * HER ASST Sign off status: Completed true * Provider:?Justin Harding, MSN, AGPCNP -BC Date:?02/27/2024 Generated for Printing/Faxing/eTransmitting on:?05/01/2024 01:41 PM TEACHER ASST History and Physical Notes * HPI (History of Present Illness) Category Sub-Category Detail Notes Category Not es Interim History Was hospitalized No Emergency room visit No Depression Screening PHQ-9 Little inte rest or pleasure in doing things: More than half the days Feeling down, depressed, or hopeless: Mo re than half the days Trouble falling or staying a sleep, or sleeping too much: More than half the days Feeling tired or having little energy: S everal days Poor appetite or overeating: More than [...] some way: Not at all Total Score: 13 Interpretation: Moderate Depression Intervention Depression Screening Findings: P ositive Follow-Up for Depression: No Referral necessary, patient involved in behavioral health treatment Screening [place] Suicide Sev erity Rating Scale (LF) Do [...] and safe hous ing. 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 Referrals needed:: Provider recommended the following referrals, [...]
--- OUTSIDE RECORDS SUMMARY | 2024-05-01 13:41 | XMS_ITS | Patient Health Record ---
Author Organization [facility] Address [address] [place] [address] Care Team Providers Care Supervisor [employer] Name Role Phone Justin Harding Primary Care Provider Jarrett Villagomez Unavailable [phone] Tammie Rebolledo Unavailable [phone] Tangela Dorantes Unavailable [phone] Allergies No Known Allergies Results Component Value Reference Range Notes 12 Panel Urine Drug Screen Reviewed date:01/30/2024 08:34:29 AM Interpretation: Performing Lab: Notes/Report: THC neg CHANTELLE neg MOP (OPI) neg AMP neg MET neg BAR neg BZO neg MDMA neg MTD neg OXY neg PCP neg BUP POS 12 Panel Urine Drug Screen Reviewed date:02/27/2024 02:15:40 PM Interpretation: Performing Lab: Notes/Report: THC neg CHANTELLE neg MOP (OPI) neg AMP neg MET neg BAR neg BZO neg MDMA neg MTD neg OXY neg PCP neg BUP POS 12 Panel Urine Drug Screen Reviewed date:03/26/2024 04:32:40 PM Interpretation: Performing Lab: Notes/Report: THC neg CHANTELLE neg MOP (OPI) neg AMP neg MET neg BAR neg BZO Neg MDMA neg MTD neg OXY neg PCP neg BUP pos Buprenorphine and Metabolite (Urine test) Reviewed date:08/16/2023 04:59:35 PM Interpretation: Performing Lab:[facility], [address], [place], Phone - [phone], Director - PhDAbudu Notes/Report: Clinical Information:CCU:[id number] LM Buprenorphine Positive Confirmation p erformed by Mass Spectrometry Buprenorphine Positive Buprenorphine Conf, MS, UR 40 Cutoff=10 ng/m L Norbuprenorphine Positive Norbuprenorphine Conf, MS, UR 476 Cutoff=10 n g/mL 12 Panel Urine Drug Screen Reviewed date:08/10/2023 08:17:06 AM Interpretation: Performing Lab: Notes/Report: THC POS CHANTELLE neg MOP (OPI) neg AMP neg MET neg BAR neg BZO POS MDMA neg MTD neg OXY neg PCP neg BUP POS 12 Panel Urine Drug Screen Reviewed date:07/11/2023 07:38:55 AM Interpretation: Performing Lab: Notes/Report: THC NEG CHANTELLE NEG MOP (OPI) NEG AMP NEG MET NEG BAR NEG BZO NEG MDMA NEG MTD NEG OXY NEG PCP NEG BUP POS 12 Panel Urine Drug Screen Reviewed date:06/29/2023 03:01:16 PM Interpretation: Performing Lab: Notes/Report: THC POS CHANTELLE neg MOP (OPI) neg AMP neg MET neg BAR neg BZO neg MDMA neg MTD neg OXY neg PCP neg BUP POS 12 Panel Urine Drug Screen Reviewed date:12/20/2023 03:39:54 PM Interpretation: Performing Lab: Notes/Report: THC POS CHANTELLE neg MOP (OPI) neg AMP neg MET neg BAR neg BZO POS MDMA neg MTD neg OXY neg PCP neg BUP POS 12 Panel Urine Drug Screen Reviewed date:10/08/2023 01:58:07 PM Interpretation: Performing Lab: Notes/Report: THC POS CHANTELLE neg MOP (OPI) neg AMP neg MET neg BAR neg BZO neg MDMA neg MTD neg OXY neg PCP neg BUP POS 12 Panel Urine Drug Screen Reviewed date:06/27/2023 08:24:33 AM Interpretation: Performing Lab: Notes/Report: THC POS CHANTELLE NEG MOP (OPI) NEG AMP NEG MET NEG BAR NEG BZO NEG MDMA NEG MTD NEG OXY NEG PCP NEG BUP NEG 12 Panel Urine Drug Screen Reviewed date:11/06/2023 03:48:31 PM Interpretation: Performing Lab: Notes/Report: THC POS CHANTELLE neg MOP (OPI) neg AMP neg MET neg BAR neg BZO POS MDMA neg MTD neg OXY neg PCP neg BUP POS 12 Panel Urine Drug Screen Reviewed date:09/07/2023 02:09:31 PM Interpretation: Performing Lab: Notes/Report: THC POS CHANTELLE neg MOP (OPI) neg AMP neg MET neg BAR neg BZO neg MDMA neg MTD neg OXY neg PCP neg BUP POS Reason For Referral Reason New JUN pt., high PH Q. Diagnosis 1 Opioid use disorder (F11.99) Diagnosis 2 Severe episode of re current major depressive disorder, without psychotic features (F33.2) Referral Organization [facility] Referring Provider First Name Justin Referring Provider Last Name Mehdi Referring Provider Special[facility] jamie Referred Provider Specialty [facility] Clinical Notes Teresa Sparks 06/28 02:10:34 PM > Case review and coordination. Consumer has in-person appointment pending for 3:40 pm on current date. Attempting to reach out to [facility] at for possible face-to- face services., Blu Berkowitz 06/29/2023 03:00:09 PM >Client was given resources and information in person during his appt. 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 Stress is when someone feels tense, nervous, anxious, or can\t sleep at night because their mind is troubled A little bit In the past year have you sp ent more than 2 nights in a row in a mcfp, halfway, long-term center, or juvenile correctional facility? No Are [...] W/U Status Risk Notes Problem Tobacco user (067756575) Nicotine dependence, unspecified, uncomplicated (F17.200) Active confirmed Problem Disorder caused by alcohol (disorder) (843901054) Alcohol use disorder (F10.99) Active confirmed Problem [id number] Severe episode o f recurrent major depressive disorder, without psychotic features (F33.2) Active confirmed Problem 098209308 Obesity (BMI 30-39.9) (E66.9) Active confirmed Problem Tobacco use (908397884) Tobacco use disorder (F17.200) Active confirmed Problem Mental disorder caused by drug (679110240) Opioid use disorder (F11.99) Active confirmed Vital Signs Heart Rate 115 /min 03/26/2024 Temperature 98.7 degrees Fahrenheit 10/08/2023 Respiratory Rate 16 /min 03/26/2024 Blood pressure diastolic 82 mm Hg 03/26/2024 Oximetry 99 % 03/26/2024 Height 68 in 03/26/2024 Blood pressure systolic 118 mm Hg 03/26/2024 Weight 195 lb 4 oz lbs 03/26/2024 BMI 29.68 kg/m2 03/26/2024 Encounters Encounter Location Date Provider Diagnosis [address] [place] [address] 06/22/2023 Jarrett Villagomez [address] [place] [address] 08/22/2023 Justin Harding [address] [place] [address] 10/08/2023 Justin Harding [address] [place] [address] 10/10/2023 Tangela Dorantse [address] [place] [address] 06/29/2023 Tammie Rebolledo [address] [place] [address] 10/08/2023 Tammie Avilatha [address] [place] [address] 11/06/2023 Justin Harding Opioid use disorder F11.99 ; Alcohol use disorder F10.99 ; Overweight (BMI 25.0-29.9) E66.3 ; Nutritional counseling Z71.3 and Nicotine dependence, uncomplicated, unspecified nicotine product type F17.200 [address] [place] [address] 12/05/2023 Justin Harding Opioid use disorder F11.99 ; Overweight (BMI 25.0-29.9) E66.3 ; Nutritional counseling Z71.3 and Nicotine dependence, uncomplicated, unspecified nicotine product type F17.200 [facility] [place] [address] 01/02/2024 Jenia Heavens Opioid use disorder F11.99 ; Obesity (BMI 30-39.9) E66.9 and Tobacco use disorder F17.200 [facility] [place] [address] 01/30/2024 Jenia Heavens Opioid use disorder F11.99 ; Obesity (BMI 30-39.9) E66.9 and Tobacco use disorder F17.200 [facility] [place] [address] 02/27/2024 Justin Harding Opioid use disorder F11.99 ; Overweight (BMI 25.0-29.9) E66.3 ; Nutritional counseling Z71.3 and Nicotine dependence, uncomplicated, unspecified nicotine product type F17.200 [address] [address] [place] [address] 03/26/2024 Justin Harding Opioid use disorder F11.99 ; Overweight (BMI 25.0-29.9) E66.3 ; Nutritional counseling Z71.3 and Nicotine dependence, unspecified, uncomplicated F17.[address] [address] 07/10/2023 Justin Harding Opioid use disorder F11.99 ; Obesity (BMI 30-39.9) E66.9 ; Nutritional counseling Z71.3 and Nicotine dependence, uncomplicated, unspecified nicotine product type F17.[address] [address] 08/10/2023 Justin Harding Opioid use disorder F11.99 ; Obesity (BMI 30-39.9) E66.9 ; Nutritional counseling Z71.3 and Nicotine dependence, uncomplicated, unspecified nicotine product type F17.[address] [address] 09/07/2023 Justin Harding Opioid use disorder F11.99 ; Overweight (BMI 25.0-29.9) E66.3 ; Nutritional counseling Z71.3 and Nicotine dependence, uncomplicated, unspecified nicotine product type F17.[address] [address] 06/29/2023 Justin Harding Opioid use disorder F11.99 ; Obesity (BMI 30-39.9) E66.9 ; Nutritional counseling Z71.3 and Nicotine dependence, uncomplicated, unspecified nicotine product type F17.[address] [address] 06/27/2023 Justin Harding Opioid use disorder F11.99 ; Severe episode of recurrent major depressive disorder, without psychotic features F33.2 ; Obesity (BMI 30-39.9) E66.9 ; Nutritional counseling Z71.3 and Nicotine dependence, uncomplicated, unspecified nicotine product type F17.[address] [place] [address] 10/08/2023 Tangelabubba Dorantes Opioid use disorder F11.99 ; Obesity (BMI 30-39.9) E66.9 ; Nicotine dependence, uncomplicated, unspecified nicotine product type F17.200 and Alcohol use disorder F10.99 Assessments Encounter Date Diagnosis (ICD Code) Assessment Notes Treatment Notes Treatment Clinical Notes Section Notes 06/29/2023 Obesity (BMI 30-39.9) (ICD-10 - E66.9) 06/29/2023 Opioid use disorder (ICD-10 - F11.99) 07/10/2023 Obesity (BMI 30-39.9) (ICD-10 - E66.9) 07/10/2023 Opioid use disorder (ICD-10 - F11.99) 08/10/2023 Obesity (BMI 30-39.9) (ICD-10 - E66.9) 08/10/2023 Opioid use disorder (ICD-10 - F11.99) 12/05/2023 Overweight (BMI 25.0-29.9) (ICD-10 - E66.3) 12/05/2023 Opioid use disorder (ICD-10 - F11.99) 01/02/2024 Obesity (BMI 30-39.9) (ICD-10 - E66.9) 01/02/2024 Opioid use disorder (ICD-10 - F11.99) 03/26/2024 Overweight (BMI 25.0-29.9) (ICD-10 - E66.3) 03/26/2024 Opioid use disorder (ICD-10 - F11.99) 02/27/2024 Overweight (BMI 25.0-29.9) (ICD-10 - E66.3) 01/30/2024 Opioid use disorder (ICD-10 - F11.99) 11/06/2023 Alcohol use disorder (ICD-10 - F10.99) Improved, no drinking since hospital. Continue to abstain. 02/27/2024 Opioid use disorder (ICD-10 - F11.99) 11/06/2023 Opioid use disorder (ICD-10 - F11.99) 10/08/2023 Obesity (BMI 30-39.9) (ICD-10 - E66.9) 09/07/2023 Opioid use disorder (ICD-10 - F11.99) 06/27/2023 Severe episode of recurrent major depressive disorder, without psychotic features (ICD-10 - F33.2) 10/08/2023 Opioid use disorder (ICD-10 - F11.99) 09/07/2023 Overweight (BMI 25.0-29.9) (ICD-10 - E66.3) 06/27/2023 Opioid use disorder (ICD-10 - F11.99) Advised to wait until feeling mild/moderate withdrawal symptoms before starting the suboxone, given the unknown of current DOC. Will have close follow up in 2 days. 09/07/2023 Nutritional counseling (ICD-10 - Z71.3) 06/27/2023 Obesity (BMI 30-39.9) (ICD-10 - E66.9) 10/08/2023 Nicotine dependence, uncomplicated, unspecified nicotine product type (ICD-10 - F17.200) 01/30/2024 Obesity (BMI 30-39.9) (ICD-10 - E66.9) 02/27/2024 Nutritional counseling (ICD-10 - Z71.3) 11/06/2023 Overweight (BMI 25.0-29.9) (ICD-10 - E66.3) 03/26/2024 Nutritional counseling (ICD-10 - Z71.3) 01/02/2024 Tobacco use disorder (ICD-10 - F17.200) 08/10/2023 Nutritional counseling (ICD-10 - Z71.3) 12/05/2023 Nutritional counseling (ICD-10 - Z71.3) 06/29/2023 Nutritional counseling (ICD-10 - Z71.3) 07/10/2023 Nutritional counseling (ICD-10 - Z71.3) 08/10/2023 Nicotine dependence, uncomplicated, unspecified nicotine product type (ICD-10 - F17.200) 07/10/2023 Nicotine dependence, uncomplicated, unspecified nicotine product type (ICD-10 - F17.200) 06/29/2023 Nicotine dependence, uncomplicated, unspecified nicotine product type (ICD-10 - F17.200) 12/05/2023 Nicotine dependence, uncomplicated, unspecified nicotine product type (ICD-10 - F17.200) 03/26/2024 Nicotine dependence, unspecified, uncomplicated (ICD-10 - F17.200) 02/27/2024 Nicotine dependence, uncomplicated, unspecified nicotine product type (ICD-10 - F17.200) 11/06/2023 Nutritional counseling (ICD-10 - Z71.3) 01/30/2024 Tobacco use disorder (ICD-10 - F17.200) 10/08/2023 Alcohol use disorder (ICD-10 - F10.99) 06/27/2023 Nutritional counseling (ICD-10 - Z71.3) 09/07/2023 Nicotine dependence, uncomplicated, unspecified nicotine product type (ICD-10 - F17.200) 06/27/2023 Nicotine dependence, uncomplicated, unspecified nicotine product type (ICD-10 - F17.200) 11/06/2023 Nicotine dependence, uncomplicated, unspecified nicotine product type (ICD-10 - F17.200) 02/27/2024 Other Potential side effects of buprenorphine discussed, as well as taking buprenorphine as prescribed. Dangers of using other controlled substances (prescribed or illegal/including benzodiazepines) with buprenorphine discussed. Patient understands taking other narcotics with buprenorphine could lead to respiratory distress and even . Patient understands that ALL treating providers/physician s should be informed of buprenorphine use as part of a Medication Assisted Treatment program 07/10/2023 Other Potential side effects of buprenorphine discussed, as well as taking buprenorphine as prescribed. Dangers of using other controlled substances (prescribed or illegal/including benzodiazepines) with buprenorphine discussed. Patient understands taking other narcotics with buprenorphine could lead to respiratory distress and even . Patient understands that ALL treating providers/physician s should be informed of buprenorphine use as part of a Medication Assisted Treatment program 06/27/2023 Other Potential side effects of buprenorphine discussed, as well as taking buprenorphine as prescribed. Dangers of using other controlled substances (prescribed or illegal/including benzodiazepines) with buprenorphine discussed. Patient understands taking other narcotics with buprenorphine could lead to respiratory distress and even . Patient understands that ALL treating providers/physician s should be informed of buprenorphine use as part of a Medication Assisted Treatment program 06/29/2023 Other Potential side effects of buprenorphine discussed, as well as taking buprenorphine as prescribed. Dangers of using other controlled substances (prescribed or illegal/including benzodiazepines) with buprenorphine discussed. Patient understands taking other narcotics with buprenorphine could lead to respiratory distress and even . Patient understands that ALL treating providers/physician s should be informed of buprenorphine use as part of a Medication Assisted Treatment program 06/29/2023 Other Provided case management services to address social determinants of health needs and reduce barriers to health care services. 10/08/2023 Other Provided case management services to address social determinants of health needs and reduce barriers to health care services. 08/10/2023 Other Potential side effects of buprenorphine discussed, as well as taking buprenorphine as prescribed. Dangers of using other controlled substances (prescribed or illegal/including benzodiazepines) with buprenorphine discussed. Patient understands taking other narcotics with buprenorphine could lead to respiratory distress and even . Patient understands that ALL treating providers/physician s should be informed of buprenorphine use as part of a Medication Assisted Treatment program 03/26/2024 Other Potential side effects of buprenorphine discussed, as well as taking buprenorphine as prescribed. Dangers of using other controlled substances (prescribed or illegal/including benzodiazepines) with buprenorphine discussed. Patient understands taking other narcotics with buprenorphine could lead to respiratory distress and even . Patient understands that ALL treating providers/physician s should be informed of buprenorphine use as part of a Medication Assisted Treatment program 10/08/2023 Other Provided information on inpatient detox. Discussed signs and symptoms of alcohol withdrawal and when to seek emergent medical attention. Client agrees to take medication as prescribed. Discussed medication side effects, adverse effects, risks, benefits, as well as interactions. Encouraged non-use of opioids and other illicit substances. Has naloxone. Understand that discontinuing buprenorphine increases the risk of overdose upon return to illicit opioid use. Know that that use of alcohol or benzodiazepines with buprenorphine increases the risk of overdose and . Education provided about safe storage of medications. Encourage participation in recovery groups/counseling services. Contact office with questions or concerns. 11/06/2023 Other Potential side effects of buprenorphine discussed, as well as taking buprenorphine as prescribed. Dangers of using other controlled substances (prescribed or illegal/including benzodiazepines) with buprenorphine discussed. Patient understands taking other narcotics with buprenorphine could lead to respiratory distress and even . Patient understands that ALL treating providers/physician s should be informed of buprenorphine use as part of a Medication Assisted Treatment program 01/02/2024 Other Client agrees to take medication as prescribed. Discussed medication side effects, adverse effects, risks, benefits, as well as interactions. Encouraged non-use of opioids. Has naloxone. Recommended participation in recovery groups/counseling services. May contact office with questions or concerns. 12/05/2023 Other Potential side effects of buprenorphine discussed, as well as taking buprenorphine as prescribed. Dangers of using other controlled substances (prescribed or illegal/including benzodiazepines) with buprenorphine discussed. Patient understands taking other narcotics with buprenorphine could lead to respiratory distress and even . Patient understands that ALL treating providers/physician s should be informed of buprenorphine use as part of a Medication Assisted Treatment program 01/30/2024 Other Client agrees to take medication as prescribed. Discussed medication side effects, adverse effects, risks, benefits, as well as interactions. Encouraged non-use of opioids. Has naloxone. Recommended participation in recovery groups/counseling services. May contact office with questions or concerns. Plan Of Treatment No Information Insurance Providers Payer Name Payer Address Payer Phone Subscriber Number Group Number Insured Name Patient Relationship to Insured Coverage Start Date Coverage End Date [facility] [address] [place] [address] [phone] [id number] Hilario Arechiga Self - patient is the insured 4 4 [facility] [address] [place] [address] [id number] Hilario Arechiga Self - patient is the insured 4 Medical (General) History Medical History History ICD Code Opiate Use Disorder substance abuse pancreatitis Surgical History Surgery Date(Month/Year) Hospitalization History Reason Date(Month/Year) pancreatitis 2023 3x pancreatitis overdose 2021
--- OUTSIDE RECORDS SUMMARY | 2024-05-01 13:41 | XMS_ITS | Data Portability ---
Author Organization [place] - [facility] [place], Main Office Address [address] [place] [address] Assessment Encounter Date Assessment Date Assessment LastModified by Organization Details LastModified Time 07/25/2022 07/25/2022 Call office if worse, ER if life-threatening illness RTC in 1 month He and his partner both voiced understanding of plan and agree [email or web address] Not available 07/25/2022 13:08:02 08/22/2022 08/22/2022 WEA- 08/22/22 Call office if worse, ER if life-threatening illness RTC in 1 month He voices understanding of plan and agrees [email or web address] Not available 08/22/2022 15:56:25 10/03/2022 10/03/2022 WEA- 08/22/22 Call office if worse, ER if life-threatening illness RTC in 1 month He voices understanding of plan and agrees Not available 10/03/2022 15:47:09 2022 2022 I have reconciled the patient's medications post their discharge from inpatient facility. WEA- 08/22/22 Call office if worse, ER if life-threatening illness RTC in 3 months He voices understanding of plan and agrees [email or web address] Not available 2022 16:51:48 03/21/2023 03/21/2023 I have reconciled the patient's medications post their discharge from inpatient facility. WEA- 08/22/22 Call office if worse, ER if life-threatening illness RTC in 3 months- he plans transfer to [facility] for PCP He voices understanding of plan and agrees [email or web address] Not available 03/21/2023 14:27:36 Plan of Treatment Reminders Order Date Submit Date Provider Last Modified By Organization Details Last Modified Time Details Appointments None recorded. Lab vitamin D, 25-hydroxy, total, serum 2022 023 [facility] (Lab), [address] [place], [address], 3 09:59:55 TSH, serum or plasma 2022 023 [facility] (Lab), [address] [place], [address], 3 13:45:43 lipid panel, serum 2022 023 [facility] (Lab), [address] [place], [address], 3 19:24:14 hepatic function panel, serum 2022 023 [facility] (Lab), [address] [place], [address], 3 13:19:39 gamma-gluta myl transferase (ggt), serum 2022 023 [facility] (Lab), [address] [place], [address], 3 13:19:47 CBC w/ auto diff 2022 023 [facility] (Lab), [address] [place], [address], 3 13:06:01 BMP, serum or plasma 2022 023 [facility] (Lab), [address] [place], [address], 3 13:19:45 RPR (rapid plasma reagin), serum 2022 023 [facility] (Lab), [address] [place], [address], 3 15:39:41 hepatitis panel (A+B+C), acute, serum 2022 023 [facility] (Lab), [address] [place], [address], 3 13:50:58 unlisted lab - HIV 1/2 Ab screen w/reflex [address] (Lab), [address] [place], [address], 3 09:59:55 glycohemogl obin, total, blood 2022 023 [facility] (Lab), [address] [place], [address], 3 13:55:23 Referral substance abuse referral [address], [address] [place] [address] , [place], [address], 4 09:33:12 substance abuse referral [address], [address] [place] [address] , [place], [address], 4 09:19:24 psychiatris t referral 2022 023 italia Cintron DIRECTOR HEART, [address] [facility], [place], [address], 4 09:19:25 psychiatris t referral 2022 023 maninder Cintron DIRECTOR HEART, [address] [facility] [address], [place], [address], 4 09:19:26 Procedures None recorded. Surgeries None recorded. Imaging None recorded. Medication Orders thiamine HCl (vitamin B1) 100 mg tablet 2022 023 [facility] [id number], [address] [place], [place], [id number], 3 11:45:57 escitalopra m 20 mg tablet [email or web address] [facility], [address] [place], [place], [id number], 3 15:09:54 buspirone 7.5 mg tablet [address], [address] [place], [place], [id number], 3 13:58:23 buspirone 7.5 mg tablet [address] [facility], [address] [place], [address], 3 13:58:23 buspirone 7.5 mg tablet [address] [place], [address], 3 13:58:23 escitalopra m 10 mg tablet 2022 023 [facility] [address], [address] [place], [address], 3 15:19:48 pantoprazol e 40 mg tablet,darrick yed release 2022 023 [facility] [address] [place], [address], 3 14:15:57 Patient TargetsNo targets recorded. Patient Instructions Encounter Date Encounter Id Patient Instructions Last Modified By Organization Details Last Modified Time 07/25/2022 [id number] thiamine (vitami n B1) Not available 07/25/2022 11:45:49 08/22/2022 [id number] INFLUENZA VACCIN E TD/TDAP Recommended today, patient declined Ordered Patient will get at local pharmacy/health department COLORECTAL SCREENING Recommended today, but patient declined Ordered Colonoscopy declined. Cologuard ordered No screening necessary until age 45 DEPRESSION SCREENING BMI Overweight NUTRITION PHYSICAL ACTIVITY minimum of 10-20 minutes of activity that causes mild breathlessness/da y minimum of 20-30 minutes activity that causes mild breathlessness/da y minimum of 30-40 minutes of activity that causes mild breathlessness/da y VISION Ordered Recommend ed today ALCOHOL USE TOBACCO USE SEXUALLY ACTIVE Yes, Patient is in monogamous relationship GLUCOSE SCREENING LIPID SCREENING [email or web address] Not available 08/22/2022 15:57:39 2022 [id number] Thank you for your visit to our office today. We would like to request that you reach out to your referring or previous provider and request that they send us a Summary of Care in electronic form, so that we may have it on file in your medical record. At your visit, we had the medical records we needed to provide you with the best possible care; however, for insurance purposes, an electronic Summary of Care is beneficial. Thank you for your assistance in obtaining this information and we look forward to providing continued care to you. Please review your medication list from the Summary of Care for this visit. If there are any differences from what you are currently taking at home, please call us to discuss. Not available 2022 14:53:11 Homebound Status : {{Patient has an inability to leave the home without a taxing effort and assistance from another person Does not meet homebound status}} Required Home Health Services: {{none correction, physical therapy, occupational therapy correction, physical therapy correction}} Durable Medical Equipment needed: {{cane walker wal ker with seat manual wheelchair bedsid e commode oxygen}} Billing Guidelines CPT code 21076- Transitional Care Management services with moderate medical decision complexity (jfgi-hw-rkzf visit within 14 days of discharge). CPT code 91260- Transitional Care Management services with high medical decision complexity ([id number]-oa-tqtw visit within 7 days of discharge). Not available 2022 14:53:11 Reason for Referral Substance Abuse Referral for Alcohol abuse Referring Physician: Mery [facility], Encounter Date: 07/25/2022 Substance Abuse Referral for Alcohol abuse Referring Physician: Mery Zendejas [facility], Encounter Date: 2022 Psychiatrist Referral for An xiety Referring Physician: Mery Zendejas [facility], Encounter Date: 2022 Psychiatrist Referral for An xiety Referring Physician: Mery Zendejas [facility], Encounter Date: 03/21/2023 Results Created Date Observation Date Name Description Value Unit Range Abnormal Flag Note LastModifiedBy Organization Detail LastModifiedTime 07/26/1907/25/2022 CBC/C OMPLE TE BLD COUNT W/DIF F white blood cells 8.9 x10'3 /uL 4.2-10 .8 Not Available [facility] (Lab) [address] [place], [address], 07/25/2022 13:06:01 07/26/19 23 07/25/2022 CBC/C OMPLE TE BLD COUNT W/DIF F red blood cells 5.45 x10'6 /uL 4.10-5 .80 Not Available [facility] (Lab) [address] [place], [address], 07/25/2022 13:06:01 07/26/1907/25/2022 CBC/C OMPLE TE BLD COUNT W/DIF F hemoglobin 16.9 g/dL 13.2-1 7.0 Not Available [facility] (Lab) [address] [place], [address], 07/25/2022 13:06:01 07/26/19 23 07/25/2022 CBC/C OMPLE TE BLD COUNT W/DIF F hematocrit 48.7 % 39.3-5 0.0 Not Available [facility] (Lab) [address] [place], [address], 07/25/2022 13:06:01 07/26/19 23 07/25/2022 CBC/C OMPLE TE BLD COUNT W/DIF F mean red cell volume 89.4 fL 80.0-9 7.0 Not Available [facility] (Lab) [address] [place], [address], 07/25/2022 13:06:01 07/26/19 23 07/25/2022 CBC/C OMPLE TE BLD COUNT W/DIF F mean red cell hemoglobin 31.0 pg 27.0-3 3.0 Not Available [facility] (Lab) [address] [place], [address], 07/25/2022 13:06:01 07/26/19 23 07/25/2022 CBC/C OMPLE TE BLD COUNT W/DIF F mean RBC HGB concentratio n 34.7 g/dL 31.0-3 6.0 Not Available [facility] (Lab) [address] [place], [address], 07/25/2022 13:06:01 07/26/19 23 07/25/2022 CBC/C OMPLE TE BLD COUNT W/DIF F red cell distribution width 13.0 % 11.8-1 5.5 Not Available [facility] (Lab) [address] [place], [address], 07/25/2022 13:06:01 07/26/19 23 07/25/2022 CBC/C OMPLE TE BLD COUNT W/DIF F platelets 261 x10'3 /uL 150-40 0 Not Available [facility] (Lab) [address] [place], [address], 07/25/2022 13:06:01 07/26/19 23 07/25/2022 CBC/C OMPLE TE BLD COUNT W/DIF F mean platelet volume 10.8 fL 9.0-12 .4 Not Available [facility] (Lab) [address] [place], [address], 07/25/2022 13:06:01 07/26/19 23 07/25/2022 CBC/C OMPLE TE BLD COUNT W/DIF F neutrophils 64.6 % 39.0-7 2.0 Not Available [facility] (Lab) [address] [place], [address], 07/25/2022 13:06:01 07/26/19 23 07/25/2022 CBC/C OMPLE TE BLD COUNT W/DIF F lymphocytes 26.4 % 16.0-4 7.0 Not Available [facility] (Lab) [address] [place], [address], 07/25/2022 13:06:01 07/26/19 23 07/25/2022 CBC/C OMPLE TE BLD COUNT W/DIF F monocytes 7.2 % 5.0-12 .0 Not Available [facility] (Lab) [address] [place], [address], 07/25/2022 13:06:01 07/26/19 23 07/25/2022 CBC/C OMPLE TE BLD COUNT W/DIF F eosinophils 0.9 % 1.0-7. 0 low Not Available [facility] (Lab) [address] [place], [address], 07/25/2022 13:06:01 07/26/19 23 07/25/2022 CBC/C OMPLE TE BLD COUNT W/DIF F basophils 0.7 % 0.0-2. 0 Not Available [facility] (Lab) [address] [place], [address], 07/25/2022 13:06:01 07/26/19 23 07/25/2022 CBC/C OMPLE TE BLD COUNT W/DIF F immature granulocytes 0.2 % 0.00-0 .50 Not Available [facility] (Lab) [address] [place], [address], 07/25/2022 13:06:01 07/26/19 23 07/25/2022 CBC/C OMPLE TE BLD COUNT W/DIF F neutrophils, absolute count 5.77 x10'3 /uL 1.5-8. 0 Not Available [facility] (Lab) [address] [facility] [place], [address], 07/25/2022 13:06:01 07/26/19 23 07/25/2022 CBC/C OMPLE TE BLD COUNT W/DIF F lymphocytes, absolute count 2.36 x10'3 /uL 1.07-3 .43 Not Available [facility] (Lab) [address] [facility] [place], [address], 07/25/2022 13:06:01 07/26/19 23 07/25/2022 CBC/C OMPLE TE BLD COUNT W/DIF F monocytes, absolute count 0.64 x10'3 /uL 0.29-0 .99 Not Available [facility] (Lab) [address] [place], [address], 07/25/2022 13:06:01 07/26/19 23 07/25/2022 CBC/C OMPLE TE BLD COUNT W/DIF F eosinophils, absolute count 0.08 x10'3 /uL 0.02-0 .53 Not Available [facility] (Lab) [address] [place], [address], 07/25/2022 13:06:01 07/26/19 23 07/25/2022 CBC/C OMPLE TE BLD COUNT W/DIF F basophils, absolute count 0.06 x10'3 /uL 0.01-0 .08 Not Available [facility] (Lab) [address] [place], [address], 07/25/2022 13:06:01 07/26/19 23 07/25/2022 CBC/C OMPLE TE BLD COUNT W/DIF F immature granulocytes ,absolute 0.02 x10'3 /uL 0.00-0 .05 Not Available [facility] (Lab) [address] [place], [address], 07/25/2022 13:06:01 07/26/19 23 07/25/2022 CBC/C OMPLE TE BLD COUNT W/DIF F nucleated red blood cells 0.0 % -0 Not Available [facility] (Lab) [address] [place], [address], 07/25/2022 13:06:01 07/26/19 23 07/25/2022 CBC/C OMPLE TE BLD COUNT W/DIF F NRBC# 0.00 x10'3 /uL Not Available [facility] (Lab) [address] [place], [address], 07/25/2022 13:06:01 07/26/19 23 07/25/2022 HEPAT IC/LI PIERRE PANEL alkaline phosphatase 87 U/L 38-126 Not Available [facility] (Lab) [address] [place], [address], 07/25/2022 13:19:39 07/26/19 23 07/25/2022 HEPAT IC/LI PIERRE PANEL alanine aminotransfe rase 46 U/L 0-50 Not Available [facility] (Lab) [address] [place], [address], 07/25/2022 13:19:39 07/26/19 23 07/25/2022 HEPAT IC/LI PIERRE PANEL aspartate aminotransfe rase 39 U/L 15-46 Not Available [facility] (Lab) [address] [place], [address], 07/25/2022 13:19:39 07/26/19 23 07/25/2022 HEPAT IC/LI PIERRE PANEL bilirubin, total 0.60 mg/dL 0.20-1 .30 Not Available [facility] (Lab) [address] [place], [address], 07/25/2022 13:19:39 07/26/19 23 07/25/2022 HEPAT IC/LI PIERRE PANEL bilirubin, conjugated (direct) 0.00 mg/dL 0.00-0 .30 Not Available [facility] (Lab) [address] [place], [address], 07/25/2022 13:19:39 07/26/19 23 07/25/2022 HEPAT IC/LI PIERRE PANEL biliurubin,u ncong. (indirect) 0.20 mg/dL 0.00-1 .1 Not Available [facility] (Lab) [address] [place], [address], 07/25/2022 13:19:39 07/26/19 23 07/25/2022 HEPAT IC/LI PIERRE PANEL total protein 7.7 g/dL 6.3-8. 2 Not Available [facility] (Lab) [address] [place], [address], 07/25/2022 13:19:39 07/26/19 23 07/25/2022 HEPAT IC/LI PIERRE PANEL albumin 4.6 g/dL 3.4-5. 0 Not Available [facility] (Lab) [address] [place], [address], 07/25/2022 13:19:39 07/26/19 23 07/25/2022 HEPAT IC/LI PIERRE PANEL globulin 3.1 g/dL 2.6-4. 2 Not Available [facility] (Lab) [address] [place], [address], 07/25/2022 13:19:39 07/26/19 23 07/25/2022 HEPAT IC/LI PIERRE PANEL A/G ratio 1.5 ratio 1.0-2. 0 Not Available [facility] (Lab) [address] [place], [address], 07/25/2022 13:19:39 07/26/19 23 07/25/2022 BASIC METAB OLIC PANEL sodium 142 mmol/ L 137-14 5 Not Available [facility] (Lab) [address] [place], [address], 07/25/2022 13:19:45 07/26/19 23 07/25/2022 BASIC METAB OLIC PANEL potassium 3.9 mmol/ L 3.5-5. 1 Not Available [facility] (Lab) [address] [place], [address], 07/25/2022 13:19:45 07/26/19 23 07/25/2022 BASIC METAB OLIC PANEL chloride 106 mmol/ L 98-107 Not Available [facility] (Lab) [address] [place], [address], 07/25/2022 13:19:45 07/26/19 23 07/25/2022 BASIC METAB OLIC PANEL carbon dioxide 25 mmol/ L 22-30 Not Available [facility] (Lab) [address] [place], [address], 07/25/2022 13:19:45 07/26/19 23 07/25/2022 BASIC METAB OLIC PANEL anion gap 14.9 mmol/ L 14-22 Not Available [facility] (Lab) [address] [place], [address], 07/25/2022 13:19:45 07/26/19 23 07/25/2022 BASIC METAB OLIC PANEL glucose 93 mg/dL 70-99 Not Available [facility] (Lab) [address] [place], [address], 07/25/2022 13:19:45 07/26/19 23 07/25/2022 BASIC METAB OLIC PANEL BUN 8 mg/dL 8-19 Not Available [facility] (Lab) [address] [place], [address], 07/25/2022 13:19:45 07/26/19 23 07/25/2022 BASIC METAB OLIC PANEL creatinine 0.70 mg/dL 0.66-1 .25 Not Available [facility] (Lab) [address] [place], [address], 07/25/2022 13:19:45 07/26/19 23 07/25/2022 BASIC METAB OLIC PANEL GFR >60 Refer ence Range : [place] ge GFR Healt hy Adult : >60 mL/mi n/1.7 3 m2 Chron ic Kidne y Disea se: 15-60 mL/mi n/1.7 3 m2 Kidne y Failu re: <15/m L/min /1.73 m2 www.n iddk. nih.g ov The MDRD study equat ion has not been valid ated in child zeferino <18 years of age; pregn ant women ; the elder ly >85 years of age; or in some racia l or ethni c subgr oups, such as [facility] nics. Outsi de the valid ated azael eters , estim ated GFR is less accur ate, requi ring clini nishant judgm ent on a case- by-ca se basis . Clini nishant inter preta tion for other races and ages must be made by the clini donal. The MDRD study equat ion has not been valid ated for the evalu ation of serum creat inine relat ed to nutri francie l statu s or medic ation usage . For perso ns <18 years of age, a pedia tric GFR calcu lator is avail able on the F websi te: https ://arti w.kid carlos.o rg/pr ofess ional s/kdo qi/gf r_cal culat or Not Available [facility] (Lab) [address] [place], [address], 07/25/2022 13:19:45 07/26/1907/25/2022 BASIC METAB OLIC PANEL calcium 9.7 mg/dL 8.4-10 .2 Not Available [facility] (Lab) [address] [place], [address], 07/25/2022 13:19:45 07/26/19 23 07/25/2022 GGT/G -GLUT AMYL TRANS FERAS E gamma-glutam yl transferase 40 U/L 12-58 Not Available [facility] (Lab) [address] [place], [address], 07/25/2022 13:19:47 07/26/19 23 07/25/2022 VITAM IN D 25-HY DROXY vd25oh 25.3 NG/mL 30-100 low Vitam in D Statu s: Defic ient: <20 ng/mL Insuf ficie nt: 20-29 ng/mL Suffi cient : 30-10 0 ng/mL Not Available [facility] (Lab) [address] [place], [address], 07/25/2022 13:34:37 07/26/1907/25/2022 TSH W/REF LAYLA FT4 TSH with reflex free T4 1.800 uIU/m L 0.465- 4.680 Not Available [facility] (Lab) [address] [place], [address], 07/25/2022 13:45:43 07/26/19 23 07/25/2022 HEPAT ITIS ACUTE PANEL hepatitis A IgM antibody NON-RE ACTIVE non-re active For sampl es repor loren as Borde rline React mervin for HAV IgM, it is recom noe d a new speci men be obtai carleen in 2 weeks and retes loren. Not Available [facility] (Lab) [address] [place], [address], 07/25/2022 14:04:28 07/26/19 23 07/25/2022 HEPAT ITIS ACUTE PANEL hepatitis A virus signal/cutof 0.01 0.00-0 .79 Not Available [facility] (Lab) [address] [place], [address], 07/25/2022 14:04:28 07/26/19 23 07/25/2022 HEPAT ITIS ACUTE PANEL hepatitis B core IgM antibody NON-RE ACTIVE non-re active Not Available [facility] (Lab) [address] [place], [address], 07/25/2022 14:04:28 07/26/19 23 07/25/2022 HEPAT ITIS ACUTE PANEL HBV core IgM signal/cutof f 0.05 0.00-1 .10 Not Available [facility] (Lab) [address] [place], [address], 07/25/2022 14:04:28 07/26/19 23 07/25/2022 HEPAT ITIS ACUTE PANEL hepatitis B surface antigen NON-RE ACTIVE non-re active All speci mens react mervin for Hepat itis B Surfa ce Antig en will refle x to refer ral lab confi rmato ry testi ng. Not Available [facility] (Lab) [address] [place], [address], 07/25/2022 14:04:28 07/26/19 23 07/25/2022 HEPAT ITIS ACUTE PANEL HBV surf.antigen signal/cutof f 0.06 0.00-0 .99 Not Available [facility] (Lab) [address] [place], [address], 07/25/2022 14:04:28 07/26/19 23 07/25/2022 HEPAT ITIS ACUTE PANEL hepatitis C antibody NON-RE ACTIVE non-re active All speci mens react mervin for Hepat itis C Virus antib ta will refle x to PCR confi rmato ry testi ng. Pleas e allow 48-72 hours for resul ts. Not Available [facility] (Lab) [address] [place], [address], 07/25/2022 14:04:28 07/26/19 23 07/25/2022 HEPAT ITIS ACUTE PANEL hepatitis C virus signal/cutof 0.02 0.00-0 .99 Not Available [facility] (Lab) [address] [place], [address], 07/25/2022 14:04:28 07/26/1907/25/2022 HEMOG LOBIN A1C HA1C 5.2 % 4.0-6. 0 Diabe osmani Scree hayley Crite charissa: <5.7% Consi stent with absen ce of diabe osmani 5.7-6 .4% Consi stent with incre ased risk for diabe osmani (pred iabet es) >OR=6 .5% Consi stent with diabe osmani REFER ENCE: Diabe osmani Care 2016, 39(Parks ppl.1 ):s13 -s22 Not Available [facility] (Lab) [address] [place], [address], 07/25/2022 13:55:23 07/26/19 23 07/25/2022 HIV COMBO : HIV 1/2 AB,P2 4 AG HIV combo assay NON-RE ACTIVE nonrea ctive The HIV combo test scree ns for HIV-1 , HIV-2 , HIV p24 Ag, and HIV group O. Any react mervin scree n resul t will be sent for PCR confi rmato ry testi ng. Not Available [facility] (Lab) [address] [place], [address], 07/25/2022 14:14:36 07/26/1907/25/2022 HIV COMBO : HIV 1/2 AB,P2 4 AG signal/cutof f 0.07 0.00-0 .99 Not Available [facility] (Lab) [address] [place], [address], 07/25/2022 14:14:36 07/26/1907/27/2022 LIPID PANEL cholesterol 148 mg/dL 140-19 9 NIH SHANNAN NSUS RECOM MENDA TION FOR NASRA STERO L: ADULT CHILD LOW RISK: <200 <170 BORDE RLINE : <200- 239 ----- HIGH RISK: >240 >200 Not Available [facility] (Lab) [address] [place], [address], 07/27/2022 19:24:14 07/26/1907/27/2022 LIPID PANEL triglyceride s 215 mg/dL 0-150 high NIH SHANNAN NSUS REPOR T RECOM MENDA TION FOR TRIGL YCERI CRYSTAL: ADULT CHILD LOW RISK: <150 ----- BODER LINE: 150-1 99 ----- HIGH RISK: >200 ----- Not Available [facility] (Lab) [address] [place], [address], 07/27/2022 19:24:14 07/26/19 23 07/27/2022 LIPID PANEL HDL cholesterol 39 mg/dL 40- low Not Available [facility] (Lab) [address] [place], [address], 07/27/2022 19:24:14 07/26/1907/27/2022 LIPID PANEL LDL cholesterol, calculated 66 mg/dL 0-130 NIH SHANNAN NSUS REPOR T RECOM MENDA TIONS FOR LDL: ADULT CHILD LOW RISK <130 <110 (OPTI MAL LDL) <100 ----- BORDE RLINE : 130-1 59 ----- HIGH RISK: >160 >130 A TRIGL YCERI DE RESUL T >400 INVAL IDATE S THE CALCU LATIO N FOR LDL FRACT IONAT ION - THE LDL RESUL T WILL NOT BE REPOR LOREN. Not Available [facility] (Lab) [address] [place], [address], 07/27/2022 19:24:14 07/26/19 23 07/29/2022 RPR SCREE N RPR NON-RE ACTIVE nonrea ctive Not Available [facility] (Lab) [address] [place], [address], 07/29/2022 15:39:41 11/26/19 23 11/25/2022 CT, abdom en + pelvi s, w/ contr ast No observ ation record ed. [address] [address], [place], [address], 11/28/2022 21:16:39 11/28/19 23 11/26/2022 XR, chest , 2 view No observ ation record ed. [address] [address], [place], [address], 11/28/2022 21:16:56 11/29/19 23 11/28/2022 US, duple x, venou s, extre mity, limit ed No observ ation record ed. [address] [address], [place], [address], 11/28/2022 21:17:19 11/29/19 23 11/28/2022 US, liver No observ ation record ed. [address] [address], [place], [address], 11/28/2022 21:18:07 11/30/19 23 11/29/2022 MR, chola ngiop ancre atogr am, w/ contr ast No observ ation record ed. [address] [address], [place], [address], 11/30/2022 09:46:51 02/22/20 23 02/21/2023 CT, abdom en + pelvi s, w/ contr ast No observ ation record ed. [address] [address], [place], [address], 02/22/2023 12:22:42 Result Notes None recorded. Problems Name Problem SNOMED Code Status Onset Date Resolution Date Notes Provider Name and Address Organization Details Recorded Time Anxiety disorder 378303529 Active 2021 Not Available [facility] 3 18:18:02 Depressive disorder 17238320 Active 2021 Not Available [facility] 3 18:18:02 Education about sexually transmitte d disease prevention Active 2021 Not Available [facility] 3 18:18:03 Nicotine dependence with current use 032607123 Active 2021 Not Available [facility] 3 18:18:03 Alcohol abuse 15813502 Active 2022 Not Available [facility] 3 18:18:02 Anxiety 17334609 Active 2022 Not Available [facility] 3 18:18:03 History of intravenou s drug abuse 8409709679419 9103 Active 2022 Not Available [facility] 3 18:18:02 Vitamin D deficiency 24624392 Active 2022 Not Available [facility] 3 18:18:02 Overweight 272913527 Active 2022 Not Available [facility] 3 18:18:02 Gastroesop hageal reflux disease without esophagiti s 238206364 Active 2022 YOJANA Cheung [address], [place], [address] , [facility] 3 14:15:40 Problem Notes None recorded. Procedures Surgical History Date Name Laterality Status Provider Name and Address Organization Details Recorded Time 2022 Transition al_Care_Darryl joy completed YOJANA Cheung [address], [address], [place], [address], [facility] 2022 16:51:32 Imaging Results Imaging Date Name Status LastModified by Organiz ation Details LastModified Time 11/25/2022 CT, abdomen + pelvis, w/ contrast completed [address], [place], [address], 11/28/2022 21:16:39 11/26/2022 XR, chest, [address] view completed [address], [place], [address], 11/28/2022 21:16:56 11/28/2022 US, duplex, venous, extremity, limited completed [address], [place], [address], 11/28/2022 21:17:19 11/28/2022 US, liver completed [address], [place], [address], 11/28/2022 21:18:07 11/29/2022 MR, cholangiopanc reatogram, w/ contrast completed [address], [place], [address], 11/30/2022 09:46:51 02/21/2023 CT, abdomen + pelvis, w/ contrast completed [address], [place], [address], 02/22/2023 12:22:42 Procedure Notes None recorded. Medical Equipment None Reported. Allergies No known drug allergies Medications Name Sig Start Date Stop Date Status Note LastModified by Organization Details LastModified Time quetiapine 25 mg tablet TAKE 1/2 (ONE-HALF ) TABLET BY MOUTH TWICE DAILY IN THE MORNING AND AT 1PM active Not Available Not Available No t Available quetiapine 300 mg tablet TAKE 1 TABLET BY MOUTH ONCE DAILY AT BEDTIME FOR 30 DAYS active Not Available Not Available No t Available naltrexone 50 mg tablet Take 1 tablet every day by oral route. active Not Available Not Available No t Available quetiapine 200 mg tablet TAKE 1 TABLET BY MOUTH ONCE DAILY AT BEDTIME FOR 30 DAYS active Not Available Not Available No t Available thiamine HCl (vitamin B1) 100 mg tablet TAKE 1 TABLET BY MOUTH EVERY DAY active Not Available Not Available No t Available hydroxyzine pamoate 50 mg capsule Take PO QID PRN active Not Available Not Available No t Available quetiapine 100 mg tablet 03/21 completed Not Available Not Available Not Available methocarbam ol 750 mg tablet active Not Available Not Available Not Available chlordiazep oxide 25 mg capsule TAKE 1 CAPSULE BY MOUTH TWICE DAILY NEEDED FOR ALCOHOL WITHDRAWL FOR 10 DAYS 12/12 completed Not Available Not Available Not Available pantoprazol e 40 mg tablet,darrick yed release TAKE 1 TABLET BY MOUTH ONCE DAILY active Not Available Not Available No t Available mirtazapine 30 mg tablet 03/21 completed Not Available Not Available Not Available buspirone 10 mg tablet TAKE 2 TABLETS BY MOUTH TWICE DAILY DIRECTED active Not Available Not Available No t Available gabapentin 300 mg capsule TAKE 1 CAPSULE BY MOUTH THREE TIMES DAILY DIRECTED active Not Available Not Available No t Available buspirone 7.5 mg tablet Take 1 tablet twice a day by oral route. 03/21 completed Not Available Not Available Not Available mirtazapine 15 mg tablet 03/21 completed Not Available Not Available Not Available ergocalcife rol (vitamin D2) 1,250 mcg (50,000 unit) capsule Take 1 capsule every week by oral route. 12/12 completed Not Available Not Available Not Available amoxicillin 500 mg-potassiu m clavulanate 125 mg tablet TAKE 1 TABLET BY MOUTH EVERY 12 HOURS 07/25 completed Not Available Not Available Not Available buspirone 15 mg tablet TAKE 1 TABLET BY MOUTH TWICE DAILY active Not Available Not Available No t Available escitalopra m 10 mg tablet TAKE 1 TABLET BY MOUTH ONCE DAILY DIRECTED FOR 30 DAYS active Not Available Not Available No t Available escitalopra m 20 mg tablet Take 1/2 tab PO daily x 2 weeks, then increase to 1 tab PO daily 12/12 completed Not Available Not Available Not Available quetiapine 50 mg tablet 03/21 completed Not Available Not Available Not Available Vitals Date Recorded Body height Body mass index (BMI) Body weight Heart rate Body temperature Oxygen saturation Oxygen saturation in Arterial blood by Pulse oximetry Systolic blood pressure Diastolic blood pressure Provider Name and Address Organization Details Last Updated DateTime 3 172.72 cm 29.2 kg/m2 98523.7 4 g 81 /min 97.6 [degF] 98 % 98 % 118 mm[Hg] 82 mm[Hg] Celia Wilson RN [place] - S [place] [employer] [facility] 3 11:26:18 Date Recorded Body height Body mass index (BMI) Body weight Body temperature Heart rate Oxygen saturation Oxygen saturation in Arterial blood by Pulse oximetry Systolic blood pressure Diastolic blood pressure Provider Name and Address Organization Details Last Updated DateTime 3 172.72 cm 30 kg/m2 93039.7 g 98 [degF] 94 /min 98 % 98 % 128 mm[Hg] 82 mm[Hg] Yocasta Maldonado DARRYL [employer] [facility] [employer] [facility] 3 15:33:47 Date Recorded Body height Body mass index (BMI) Body weight Body temperature Heart rate Oxygen saturation Oxygen saturation in Arterial blood by Pulse oximetry Systolic blood pressure Diastolic blood pressure Provider Name and Address Organization Details Last Updated DateTime 3 172.72 cm 29.6 kg/m2 88984.5 1 g 97.4 [degF] 84 /min 96 % 96 % 122 mm[Hg] 84 mm[Hg] Yocasta Maldonado DARRYL [facility] [employer] [facility] 3 15:41:19 Date Recorded Body height Body mass index (BMI) Body weight Body temperature Heart rate Oxygen saturation Oxygen saturation in Arterial blood by Pulse oximetry Systolic blood pressure Diastolic blood pressure Provider Name and Address Organization Details Last Updated DateTime 3 172.72 cm 29.8 kg/m2 54421.1 g 98.2 [degF] 94 /min 100 % 100 % 126 mm[Hg] 80 mm[Hg] Yocasta Maldonado DARRYL [facility] [employer] [facility] 3 14:56:19 Date Recorded Body height Body mass index (BMI) Body weight Body temperature Heart rate Oxygen saturation Oxygen saturation in Arterial blood by Pulse oximetry Systolic blood pressure Diastolic blood pressure Provider Name and Address Organization Details Last Updated DateTime 3 172.72 cm 29.3 kg/m2 04116.3 3 g 98.9 [degF] 110 /min 98 % 98 % 118 mm[Hg] 80 mm[Hg] Yocasta Maldonado [employer]ARRYL [employer] [facility] [employer] 3 14:04:57 Social History Question Answer Notes LastModified by Organization Details LastModified Time Tobacco Smoking Status Never Smoker Celia Wilson RN [facility], [employer] [facility] 07/25/2022 11:22:21 Do You Have An Advance Directive? No MIGRATION.030 [id number] Information not available 06/08/2022 What Is Your Level Of Alcohol Consumption? Heavy Information not available 07/25/2022 Do You Wear A Helmet When Biking? No MIGRATION.300 [id number] Information not available 06/08/2022 What Is Your Level Of Caffeine Consumption? Occasional [email or web address] Information not available 07/25/2022 In The 14 Days Before Symptom Onset, Have You Had Close Contact With A Laboratory-confi rmed COVID-19 While That Case Was Ill? No MIGRATION.030 [id number] Information not available 06/08/2022 In The 14 Days Before Symptom Onset, Have You Had Close Contact With A Person Who Is Under Investigation For COVID-19 While That Person Was Ill? No MIGRATION.0301 [id number] Information not available 06/08/2022 Are You Currently Employed? Yes [email or web address] Information not available 07/25/2022 What Type Of Diet Are You Following? REGULAR MIGRATION.030 [id number] Information not available 06/08/2022 Which Illicit Or Recreational Drugs Have You Used? Marijuana [email or web address] Information not available 07/25/2022 Do You Or Have You Ever Used E-cigarettes Or Vape? Current User Of Electronic Cigarettes MIGRATION.030 [id number] Information not available 06/08/2022 What Is The Highest Grade Or Level Of School You Have Completed Or The Highest Degree You Have Received? 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 No MIGRATION.0301 [id number] Information not available 06/08/2022 What Is The Fluoride Status Of Your Home? Unknown MIGRATION.030 [id number] Information not available 06/08/2022 Are There Any Guns Present In Your Home? No MIGRATION.0301 151814 Information not available 06/08/2022 Do You Use Insect Repellent Routinely? No MIGRATION.0301 [id number] Information not available 06/08/2022 Where Do You Live? [place]LevelHouse MIGRATION.030 [id number] Information not available 06/08/2022 Do You Have A Medical Power Of Broadcast Operations Technician? No MIGRATION.0301 080915 Information not available 06/08/2022 What Was The Date Of Your Most Recent Tobacco Screening? 03/21/2023 Information not available 03/21/2023 Have You Ever Been Counseled For Unhealthy Alcohol Use? Yes [email or web address] Information not available 07/25/2022 Do You Have Any Pets? Yes MIGRATION.0301 [id number] Information not available 06/08/2022 What Is Your Relationship Status? Single MIGRATION.0301 [id number] Information not available 06/08/2022 Do You Use Your Seat Belt Or Car Seat Routinely? Yes MIGRATION.0301 [id number] Information not available 06/08/2022 Are You Sexually Active? Yes [email or web address] Information not available 07/25/2022 Do You Have Smoke And Carbon Monoxide Detectors In Your Home? Yes MIGRATION.0301 [id number] Information not available 06/08/2022 Are You Passively Exposed To Smoke? No MIGRATION.0301 807643 Information not available 06/08/2022 Do You Or Have You Ever Used Smokeless Tobacco? Never Used Smokeless Tobacco MIGRATION.0301 [id number] Information not available 06/08/2022 Are There Any Smokers In Your House? No MIGRATION.0301 230727 Information not available 06/08/2022 Do You Participate In Social Media? Yes MIGRATION.0301 128584 Information not available 06/08/2022 Do You Feel Stressed (tense, Restless, Nervous, Or Anxious, Or Unable To Sleep At Night)? [id number] MIGRATION.0301 490814 Information not available 06/08/2022 Do You Use Any Illicit Or Recreational Drugs? Yes [email or web address] Information not available 07/25/2022 Do You Use Sunscreen Routinely? Yes MIGRATION.0301 [id number] Information not available 06/08/2022 Has Tobacco Cessation Counseling Been Provided? No MIGRATION.0301 [id number] Information not available 06/08/2022 Have You Recently Traveled Abroad? No MIGRATION.0301 [id number] Information not available 06/08/2022 Have You Used IV Drugs? Yes Former Heroin Addict- OD'd In 05/31, Has Been Clean Since Then [email or web address] Information not available 07/25/2022 Are You Currently In School? No MIGRATION.0301 085365 Information not available 06/08/2022 Do You Have Any Dietary Restrictions? No MIGRATION.0301 934700 Information not available 06/08/2022 Do You Or Have You Ever Used Any Other Forms Of Tobacco Or Nicotine? Yes MIGRATION.0301 157793 Information not available 06/08/2022 Sex: Male Functional Status Question Answer Note LastModified by Organizat ion Details LastModified Time What is your exercise level? Moderate [id number] Information not available 06/08/2022 Mental Status None recorded. Family History Relationship Description Onset Age of this Age Resolved Age Notes LastModified by Organization Details LastModified Time Father No current problems or disability MIGRATION.838 [id number] Not available 06/08/2022 00:34:39 Mother No current problems or disability MIGRATION.317 [id number] Not available 06/08/2022 00:34:39 Medical History Condition Response NERVE DISEASE N BLINDNESS N RHEUMATIC FEVER N KIDNEY STONES N BLADDER PROBLEMS N MRSA N OTHER # 1 N POLIO N LUNG DISEASE/DISORDER N HISTORY OF DRUG ABUSE N RADIATION / CHEMOTHERAPY N COPD N Other # 2 N BLOOD DISEASES N EAR OR HEARING PROBLEMS N MUMPS N SHINGLES N DEPRESSION (INCLUDING POST ) N BOWEL PROBLEMS N FAILED BACK SYNDROME N STROKE/TIA N ULCERS N BENIGN PROSTATIC HYPERPLASIA N MEASLES N HYPOTENSION N MYOCARDIAL INFARCTION N OBESITY N GERD/NAUSEA N ANEURYSM N URINARY/BLADDER/KIDNEY PROBLEMS N CORONARY ARTERY DISEASE (CAD) N Do you have Advance directive? N ADDICTION CONCERNS N Impotence N ENDOMETRIOSIS N USE OF BLOOD THINNERS N SKIN PROBLEMS N GASTROINTESTINAL DISORDER N PERIPHERAL VASCULAR DISEASE N MUSCLE,JOINT OR BONE PROBLEMS N GASTROINTESTINAL BLEEDING N BLOOD CLOTS N ASTHMA N CATARACTS N Abdominal Pain N ERECTILE DYSFUNCTION N ARTERIAL INSUFFICIENCY N VARICOSITIES N GI PROBLEMS N Low Testosterone N INFERTILITY N AIDS/HIV N CHEMOTHERAPY / RADIATION N LIVER DISEASE N MALE HYPOGONADISM N HYPERTENSION N Deficiency N TOURETTE'S N ANXIETY DISORDER N BLOOD TRANSFUSION N ANEMIA/BLOOD DISORDER N CHRONIC EAR INFECTIONS N TUBERCULOSIS N GLAUCOMA N FOOT PROBLEM N DIVERTICULITIS N SLEEP APNEA N CHICKENPOX N ALLERGIES/HAYFEVER N BACK INJECTIONS N INFECTIOUS DISEASE N PROSTATE N HEART ARRHYTHMIA N ESRD N INSOMNIA N HIGH CHOLESTEROL / HYPERLIPIDEMIA N EYE PROBLEMS N HYPERTHYROIDISM N PVD N EDEMA N CHRONIC PAIN SYNDROME N HYPOTHYROIDISM N CAROTID BLOCKAGE N CONSTIPATION N BACK / NECK PROBLEMS N HAVE YOU BEEN HOSPITALIZED OR SEEN IN [facility] IN THE PAST YEAR ? N ATHEROSCLEROSIS N BREAST PROBLEMS N DIALYSIS N POLYCYSTIC OVARIES N ECZEMA N OSTEOPOROSIS N ARTHRITIS N NO SIGNIFICANT PAST MEDICAL HISTORY N APPENDICITIS N DIABETES, TYPE N BAD TEETH N VON WILLIBRAND'S DISEASE N ENT N HEARTBURN / REFLUX N GI N AUTISM SPECTRUM DISORDER (ASD) N POST LAMINECTOMY SYNDROME N HEPATITIS / LIVER DISEASE N GOUT N SLEEP DISORDER N ALZHEIMER'S DISEASE N Brain Problems N DEMENTIA N HERPES N SEIZURES/EPILEPSY N HEADACHES/MIGRAINES N VASCULAR DISEASE N PACEMAKER N DIZZINESS N HEART DISEASE/HEART PROBLEMS N KIDNEY DISEASE N MULTIPLE SCLEROSIS N NEUROPSYCHOLOGICAL N CANCER: SPECIFY N CARDIAC ARRHYTHMIA N ATRIAL FIBRILLATION N Gall Stones N PULMONARY EMBOLISM N AUTOIMMUNE DISEASE N Immunizations Vaccine Type Date Status Note Provider Nam e and Address Organization Details Recorded Time COVID-19 IV Non-US Vaccine (QAZCOVID-IN) 05/14/2021 completed Not Available [email or web address] 2022 18:18:03 Influenza, split virus, quadrivalent, PF 03/21/2023 completed YOJANA Cheung [address] [facility], [address], [place], [address], [facility] [email or web address] 03/21/2023 14:26:31 Past Encounters Encounter ID Performer Location Encounter Start Date Encounter Closed Date Diagnosis/Indication Diagnosis SNOMED-CT Code Diagnosis ICD10 Code Diagnosis Note [id number] [facility]_[address] [address] 06/15/2021 00:00:00 06/15/2021 12:51:56 [id number] YOJANA Cheung [facility] Internal Med [address] [facility] [address] [place] [address] 07/25/2022 11:10:50 07/25/2022 11:50:49 Alcohol abuse 93145593 F10.10 Check labs Get appointmen t with [place] for substance abuse/psyc h referralst art thiamine Anxiety 36816755 F41.9 Will restart his Lexapro-he is aware side effects, risks, benefits Call office if any change in mood or behavior Psychiatri st/substan ce abuse referral as above History of pancreatitis 8487958293 9107 Z87.19 recommend reducing alcohol intake/get ting appt with substance abuse referral as above Hyperlipid emia screening 483891191 Z13.220 Diabetes m ellitus screening 013971018 Z13.1 Screening for disorder 479015854 Z13.9 History of intravenous drug abuse 3811750186 7386229 F19.11 check labshas not used since May 2021 [id number] YOJANA Cheung [facility] Internal Med [address] [facility] [address] [place] [address] 08/22/2022 15:27:42 08/22/2022 15:53:55 Alcohol abuse 86336618 F10.10 Get appointmen t with [place] for substance abuse/psyc h referral- has referral, encouraged him to make appton thiamine Anxiety 07447644 F41.9 on Lexapro, add buspar-he is aware side effects, risks, benefitsCa ll office if any change in mood or behaviorPs ychiatrist /substance abuse referral as above History of pancreatitis 3905218033 9107 Z87.19 recommend reducing alcohol intake/get ting appt with substance abuse referral as above History of intravenous drug abuse 0609601522 5202792 F19.11 has not used since [place] HIV/RPR/he p panel 07/2022- all negative Vitamin D deficiency 347 50834 E55.9 On supplement Adult heal th examination 279213158 Z00.01 Depression screening 171 791799 Z13.31 Overweight 143603057 E66 .3 recommend healthy, well balanced mealsfocus on lean meats, fresh vegetables , fresh fruits, whole grainsredu ce fast/proce ssed foods or eating out to no more than 1-2 times per weekaim to get 30 min of exercise most days of the week- walking is a great choicealso recommend resistance training 2-3 times per week [id number] YOJANA Cheung [facility] Internal Med [facility] [address] [address] 10/03/2022 15:24:59 10/03/2022 15:59:13 Alcohol abuse 95956306 F10.10 Get appointmen t with [place] for substance abuse/psyc h referral- has referral, encouraged him to make appt- he does not want to go to [place] at this time- cannot take off work for their length of program He is interested in [facility] short term detox- I did print out the contact informatio n for him today, he states he will call on thiamine over 30 min spent with patient, over half spent on counseling Anxiety 64573736 F41.9 on Lexapro, add buspar-he is aware side effects, risks, benefitsCa ll office if any change in mood or behaviorPs ychiatrist /substance abuse referral as above History of pancreatitis 8313586558 9107 Z87.19 recommend reducing alcohol intake/get ting appt with substance abuse referral as above History of intravenous drug abuse 6493905285 4802492 F19.11 has not used since [place] HIV/RPR/he p panel 07/2022- all negative Vitamin D deficiency 347 12235 E55.9 On supplement Overweight 928536262 E66 .3 recommend healthy, well balanced mealsfocus on lean meats, fresh vegetables , fresh fruits, whole grainsredu ce fast/proce ssed foods or eating out to no more than 1-2 times per weekaim to get 30 min of exercise most days of the week- walking is a great choicealso recommend resistance training 2-3 times per week [id number] YOJANA Cheung[facility] Internal Med [facility] [address] [facility], [facility] [address] [place] [address] 2022 14:49:02 2022 15:24:10 Alcohol abuse 19051332 F10.10 Get appointmen t with [place] for substance abuse/psyc h referral- has referral, encouraged him to make appt on thiamine Anxiety 96249872 F41.9 on Lexapro, buspar-he is aware side effects, risks, benefitsCa ll office if any change in mood or behaviorGe t appt with psychiatry Substance abuse referral as above History of pancreatitis 4876381841 9107 Z87.19 recommend reducing alcohol intake/get ting appt with substance abuse referral as above History of intravenous drug abuse 3826779778 9544224 F19.11 has not used since [place] HIV/RPR/he p panel 07/2022- all negative Vitamin D deficiency 347 49516 E55.9 On supplement Overweight 093285713 E66 .3 recommend healthy, well balanced mealsfocus on lean meats, fresh vegetables , fresh fruits, whole grainsredu ce fast/proce ssed foods or eating out to no more than 1-2 times per weekaim to get 30 min of exercise most days of the week- walking is a great choicealso recommend resistance training 2-3 times per week [id number] YOJANA CheungS[facility] Internal [facility] [address] [facility], [facility] [address] [place] [address] 03/21/2023 13:54:29 03/21/2023 14:21:16 Alcohol abuse 05734318 F10.10 now following [facility] s/p inpatient rehab stayhe decided against doing their outpatient programis now going to AA meetings for supportpsy ch referral placed as above on thiamineon naltrexone from inpatient psychiatri Anxiety 87333783 F41.9 on Lexapro, buspar, seroquel, gabapentin - all from inpatient psychiatri stCall office if any change in mood or behaviorGe t appt with psychiatry - has been referred multiple times, stressed the importance of calling today so he doesn't run out of medication - he states he will call today He can commit to safety and agrees to call 911 or go to nearest ED if any crisis occurs History of pancreatitis 2609483728 9107 Z87.19 now abstinent from alcohol History of intravenous drug abuse 8746528420 3445107 F19.11 has not used since [place] HIV/RPR/he p panel 07/2022- all negative Vitamin D deficiency 347 37278 E55.9 On supplement Overweight 508779663 E66 .3 recommend healthy, well balanced mealsfocus on lean meats, fresh vegetables , fresh fruits, whole grainsredu ce fast/proce ssed foods or eating out to no more than 1-2 times per weekaim to get 30 min of exercise most days of the week- walking is a great choicealso recommend resistance training 2-3 times per week Gastroesop hageal reflux disease without esophagitis 948859290 K21.9 on protonix- he is aware of side effects, risks, benefits Take p.r.n. if able Administra tion of influenza vaccine 65133339 Z23 [id number] Katja Cintron NP [facility] [address] [address] 04/25/2023 15:53:32 04/25/2023 17:18:57 [id number] Katja Cintron NP [facility] [address] [address] 05/23/2023 15:54:02 05/23/2023 16:51:11 [id number] Katja Cintron NP [facility] [address] [place] [address] 06/20/2023 16:30:15 06/20/2023 17:26:34 Health Concerns Section Related Observation LastModified by Organization Detai ls LastModified Time None Recorded Concern Status LastModified by Organization Details LastModified Time None Recorded Advance Directives Directive N: Payers Encounter Date Sequence Insurance Name Policy Number Policy Alexander Covered Member ID Alexander Member ID Guarantor Name 07/25/2022 1 [employer] [place] ON [place] AFTER 2020 (MEDICAID REPLACEMENT - HMO) Hilario Arechiga [id number] Hilario Arechiga 08/22/2022 1 [employer] ([place] REPLAC[place] - [place]MO) Hilario Arechiga [id number] Hilario Arechiga 10/03/2022 1 [employer] [place] 2020 ([place] REPLAC[place] - [place]MO) Hilario Arechiga [id number] Hilario Arechiga 10/03/2022 2 [place] Hilario Arechiga [id number] Hilario Arechiga 2022 1 [employer] [place] (MEDICAID REPLAC[place] - HMO) Hilario Arechiga [id number] Hilario Arechiga 03/21/2023 1 [employer] [place] ([place]ID REPLAC[place] - HMO) Hilario Arechiga [id number] Hilario Arechiga Notes Date Note Type Note Provider Name and Address Organization Details Recorded Time 07/25/2022 text/html Hilario mooney ts today to establish care. Previous PCP- [facility] Ed[facility]ed [facility]. Lives with partner, works at [employer] partner Luke is here with him today. 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 He reports he has been on Lexapro 20 mg in the past which has worked well for him. He has been off of it for a few months as he ran out of refills. He would like to restart that. He denies any SI or HI today. He reports he has not used any IV drugs for over a year since May of 2021 when he was hospitalized for fentanyl poisoning. He had previously been to rehab several times and had several periods of sobriety but after that hospital stay, he ended up quitting for good. He reports while he was there, he almost got started on dialysis due to some acute renal failure. He tells me he has not had his kidney values checked to his knowledge since the hospitalization. He did have another hospitalization in March of 2022 for alcohol related pancreatitis. He has had no issues with abdominal pain or vomiting since that hospitalization. He tells me he is drinking about a pt per day of liquor, he has cut back and this is a reduced amount than what he was drinking in March. His partner is here with him today and tells me that he has been working on cutting back and the pt per day is definitely improvement over what he was drinking. He is interested in a substance abuse referral to see about possibly starting naltrexone/Vivitrol. He is due for screening labs. He would also like to be checked for any blood borne pathogens. He declines need for gonorrhea chlamydia testing. Mery Zendejas, ASSEMBLY MANAGER-C [address] [facility], [facility] [address], [place], [address], [place] - [facility] 07/25/2022 13:09:52 08/22/2022 text/html Hilario mooney ts today for follow-up. He is also due for annual wellness exam. He reports his anxiety is slightly improved since restarting the Lexapro. He reports he had previously been on it at the 20 mg dose for about 6 years. We restarted him at the 10 mg dose which he was able to tolerate without issue. He tried twice to go back up to the 20 mg dose but had nausea and vomiting. He went back down to the 10 mg dose which is where he stayed. He is still having some issues with his anxiety though. Last visit I referred him to [facility] for the substance abuse and for psychiatric care. Tells me he is not quite ready to call them yet. He tells me he cannot afford to miss work to attend treatment at this time. He is thinking about it though. He tells me he does have the number when he is ready to call. He is taking the thiamine daily. We also started him on vitamin-D supplement, he has not yet picked that up. He tells me he will get it tomorrow when he gets paid. YOJANA Cheung [address], [facility] [address], [place], [address], [facility] 08/22/2022 15:58:13 10/03/2022 text/html Hilario hopkins today for follow-up. Last visit, we added buspirone as he was not able to go up on the Lexapro due to significant side effects when he tried to go up to the 20 mg. However he had an issue with the pharmacy and was unable to fill the buspirone. He would like it to be sent to a different pharmacy. He reports anxiety is about the same. He denies any SI or HI today. He reports he has had some good things happened in his life recently, he and his partner Cristian were recently engaged. He reports that he did attempt to detox himself at home off alcohol. He tells me he was able to do that for about 24 hours but then was unable to tolerate his symptoms. He tells me that he is unable to take off work due to finances right now. I had previously referred him over to [facility] substance abuse program, but he is unable to go to that due to his financial situation. He would be interested in a program if I could find him 1 the short term. I discussed with him that [facility] does have a short-term medical detox program and he is interested in obtaining that information. He is taking his time and supplement daily. YOJANA Cheung [address], [facility] [address], [place], [address], [facility] 10/03/2022 16:09:43 2022 text/html Hilario hopkins today for follow-up. He was admitted to [facility] for 4 days for acute pancreatitis. He had severe abdominal pain. They also manage his acute alcohol withdrawals while he was there. His lipase level improved and he was discharged. He reports he is feeling much better. He denies any nausea or vomiting or abdominal pain. He reports he has not had any alcohol to drink since he was discharged. He did try to call chest not to get in with them for substance abuse treatment. He is interested in trying naltrexone. He is awaiting their call back. Last visit, we had added buspirone to his escitalopram. He reports that it has been helping with his anxiety. He denies any SI or HI today. He is interested in seeing the psychiatrist. YOJANA Cheung [address], [address], [place], [address], [facility] 2022 16:52:46 03/21/2023 text/html Hilario mooney ts today for follow-up. He reports he recently completed a 30 day stay at the [facility] for drug and alcohol abuse. He reports he was drinking up to a 5th of hard liquor a day and also doing ? g [place] station heroin . He reports he is now abstinent from all substances and has been maintaining his sobriety. Tells me he decided against doing the [facility] outpatient program. He instead opted to go to AA and NA meetings. He has been attending those and they have been helpful. He reports he also has a supportive partner. He was given several refills on his mood medications from the [facility] before he left. He reports he has got at least another month of medications before he runs out. I have previously referred him to the psychiatrist multiple times, he has not made an appointment. I will get him another referral today. He denies any SI or HI today. He reports he has not had any pancreatitis symptoms since he stopped drinking. He reports the GERD symptoms are well controlled on the Protonix. He would like to get a flu shot today. YOJANA Cheung [address], [address], [place], [address], [employer] 03/21/2023 14:29:16
--- OUTSIDE RECORDS SUMMARY | 2024-05-01 13:41 | XMS_ITS ---
Author Organization [facility] Address [address] [place] [address] Care Team Providers Care Transition Rn Name Role Phone Justin Harding Primary Care Provider [phone] Jarrett Villagomez Unavailable [phone] Allergies No Known Allergies Results Component Value Reference Range Notes 12 Panel Urine Drug Screen Reviewed date:01/30/2024 08:34:29 AM Interpretation: Performing Lab: Notes/Report: 0 THC neg CHANTELLE neg MOP (OPI) neg AMP neg MET neg BAR neg BZO neg MDMA neg MTD neg OXY neg PCP neg BUP POS REASON FOR VISIT suboxone f/u Medications Medication SIG (Take, Route, Fr equency, Duration) Notes Start Date End Date Status SEROquel 300 MG 1 tablet at bedtime Orally Once a day for 30 day(s) Active busPIRone HCl 15 MG 1 tablet Orally Twice a day Active Lexapro 10 MG 1 tablet Orally Once a day for 30 day(s) Active Suboxone 8-2 MG 1 film under the ton anabella and allow to dissolve Sublingual three times daily 01/30/2024 Active chlordiazePOXIDE HCl Active Gabapentin 300 MG 1 capsule Orally [...] Findings: Tobacco user e-cigarette Vital Signs Weight 197 lb 6 oz lbs 01/30/2024 Height 68 in 01/30/2024 BMI 30.01 kg/m2 01/30/2024 Blood pressure systolic 120 mm Hg 01/30/20 Blood pressure diastolic 78 mm Hg 024 Heart Rate 84 /min 01/30/2024 Oximetry 98 % 01/30/2024 Respiratory Rate 16 /min 01/30/2024 Encounters Encounter Location Date Provider Diagnosis [facility] [address] [place] [address] 01/30/2024 Jarrett Villagomez Opioid use disorder F11.99 ; Obesity (BMI 30-39.9) E66.9 and Tobacco use disorder F17.200 Assessments Encounter Date Diagnosis (ICD Code) Assessment Notes Treatment Notes Treatment Clinical Notes Section Notes 01/30/2024 Opioid use disorder (ICD-10 - F11.99) 01/30/2024 Obesity (BMI 30-39.9) (ICD-10 - E66.9) 01/30/2024 Tobacco use disorder (ICD-10 - F17.200) 01/30/2024 Other Client agrees to take medication as prescribed. Discussed medication side effects, adverse effects, risks, benefits, as well as interactions. Encouraged non-use of opioids. Has naloxone. Recommended participation in recovery groups/counseling services. May contact office with questions or concerns. Plan Of Treatment Medication Medication Name Sig Start Date Stop Date Notes Suboxone 8-2 MG 1 film under the ton anabella and allow to dissolve Sublingual three times daily 01/30/2024 Treatment Notes Assessment Notes Other Client agrees to take medication as prescribed. Discussed medication side effects, adverse effects, risks, benefits, as well as interactions. Encouraged non-use of opioids. Has naloxone. Recommended participation in recovery groups/counseling services. May contact office with questions or concerns. Next Appt Details Follow Up: 4 Weeks, Reason: MAR f/u Progress Notes * Hilario ARECHIGADOB: [birth year] (33 yo M)Acc No.[id number]:01/30/2024 Patient:?Hilario ARECHIGA Provider:?Jarrett Villagomez, MSN, TAN ROOM SUPERVISOR, FN P-C :1990???Age:33 Y???Sex:Male Oren e:01/30/2024 Address:[facility] [address], [place], [id number] Pcp:Justin Harding Check In:08:23 AM OXYACETYLENE WELDER Subjective: * Chief Complaints: * ???Suboxone f/u * HPI: ???Preventative Health and Wellness follow-up:?Action Plans for Clinical Quality Measures:?HIV Screening:?Discussed need for HIV screening. Patient declined. ?. ???CSSRS Interpretation and Follow Up Plan:? CSSRS Interpretation and Follow Up Plan. ?CSSRS Interpretation and Follow Up Plan?CSSRS Screen documented using SF?Yes ?Moderate or High risk requires selection of a follow up plan?CSSRS No/Low: intervention not needed at this time ???Interim History:?Emergency room visit?No.?Was hospitalized?No.?Depression Screening:?PHQ-9?Little interest or pleasure in doing things?More than half the days ?Feeling down, depressed, or hopeless?Several days ?Trouble falling or staying asleep, or sleeping too much?More than half the days ?Feeling tired or having little energy?More than half the days ?Poor appetite or overeating?More than half the days ?Feeling bad about yourself or that you are a failure, or have let yourself or your family down?Several days ?Trouble concentrating on things, such as reading the newspaper or watching television?Several days ?Moving or speaking so slowly that other people could have noticed; or the opposite, being so fidgety or restless that you have been moving around a lot more than usual?Several days ?Thoughts that you would be better off or of hurting yourself in some way?Not at all ?Total Score?12 ?Interpretation?Moderate Depression ???Depression Screening PHQ2 2014:?Intervention?Depression screening Finding?Positive ???Screening:?[place] Suicide Severity Rating Scale (LF)?Do you want to initiate with?Screener form ?1. Wish to be : Have you wished you were or wished you could go to sleep and not wake up??No ?2. Suicidal Thoughts: Have you actually had any thoughts of killing yourself??No ?6. Suicide Behaviour: Have you ever done anything,started to do anything, or prepared to end your life??No ?Interpretation:?Low Risk ???Flu vaccine:?Flu vaccine offered?Flu Vaccine Declined?. ???[facility] follow-up:? Hilario presents for MAR f/u for treatment of OUD. Has beent taking buprenorphine as prescribed. Reports occasionally having to take an OTC stool softner for relief of constipation caused by medication. Reports no cravings or setbacks. Working full-time and reports doing well. ?Medication Monitoring and Risk Mitigation?Up-to-date on [facility] recommended lab testing??No ?Prescribed a buprenorphine product??Yes ?Has patient had a buprenorphine and metabolite lab ordered/collected??Yes (see notes for date of last metabolite testing) ?Date of last buprenorphine and metabolite?08/10/2023 ?Prescription Drug Monitoring Program Review?Yes. No concerns at this time. ?Plan to address any concerns identified:?No concerns identified. Will continue treatment plan as is. ?Cravings, Setbacks, Substance use, and Stressors?Cravings since last visit:?No. Patient denies cravings since last visit. ?Setbacks since last visit??No, patient denies setbacks since last visit. ?Misuse of substances since last visit:?No, patient denies. ?Stressors?No, patient denies stressors at this time. ?Withdrawal and Intoxication Symptoms?Intoxication Symptoms:?No signs of intoxication are present during visit. ?Withdrawal Symptoms:?No withdrawal signs are present during visit. ?Mental Health, Support System, and Social Determinants?Mental Health Status?Stable. ?Support Systems Include:?Personal support system (see notes). ?Court System Involvement??No ?Housing Stability:?Stable and safe housing. 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 ?Referrals needed:?No referrals needed at this time. ?Recommended Wellness and Prevention Follow-up?Recommended Wellness and Prevention reviewed:?Yes. No additional orders/actions needed at this time. ?Other concerns:?Other Concerns??No. ?Narcan need?No. Patient already has Narcan. * ROS:?Basic ROS:?Denies?Chills.?Denies?Sweats.?Admits?Constipation.?Denies?Anxiety.?Denies?D epressed Mood.?Denies?Suicidal Thoughts.? * Medical History:? * Surgical History:?Denies Pas t Surgical History * Hospitalization/Major Diagno stic Procedure:?overdose pancreatitis pancreatitis 2023 * Family History:?Father: adelaide richard?Mother: alive.?2 brother(s) , 2 sister(s) - healthy. .? 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 * Examination: ???General Examination: ?GENERAL APPEARANCE:?pleasant, in no acute distress.?PSYCH:?speech clear, alert, oriented x4, thought process logical, goal directed.? Assessment: * Assessment: 1.?Opioid use disorder - F11 .99 (Primary)???2.?Obesity (BMI 30-39.9) - E66.9???3.?Tobacco use disorder - F17.200??? Plan: * Treatment: ? Value Reference Range ?THC neg * ?CHANTELLE neg * ?MOP (OPI) neg * ?AMP neg * ?MET neg * ?BAR neg * ?BZO neg * ?MDMA neg * ?MTD neg * ?OXY neg * ?PCP neg * ?BUP POS 2.?Others? Notes: Client agrees to take medication as prescribed. Discussed medication side effects, adverse effects, risks, benefits, as well as interactions. Encouraged non-use of opioids. Has naloxone. Recommended participation in recovery groups/counseling services. May contact office with questions or concerns.?? * Recommended Wellness and Pre vention Guidelines: * ?Status ?Alert ?Last Done ?Next Due ?Action Taken ?NONCOMPLIANT ?Alcohol use screening ?- ? ?- ?NONCOMPLIANT ?HIV screening ?- ?01/30/2024 ?- ?NONCOMPLIANT ?Influenza vaccine (high risk) ?- ?1 ?- * Procedure Codes:?76035 SPECI MEN [id number] Flu Vaccine [id number] BODY MASS INDEX [id number] MEDICAL NUTRITION, INDIV, [id number] BEHAV CHNG SMOKING 3-10 MIN * Preventive Medicine:? ??Counseling:?Care goal follow-up plan:?BMI management provided?Yes ?Above Normal BMI Follow-up?Lifestyle education regarding diet ?SMOKING:?Patient counselled on the dangers of tobacco use and urged to quit.?. * Follow Up:?4 Weeks (Reason: MAR f/u) * Care Plan Details* * Sign off status: Completed true * Provider:?Jose Da Silva, SHANT, MARKETING ASSISTANT-C Date:?01/30/2024 Generated for Galinai donna/Josie/eTransmitting on:?05/01/2024 01:41 PM OXYACETYLENE WELDER History and Physical Notes * HPI (History of Present Illness) Category Sub-Category Detail Notes Category Not es Interim History Was hospitalized No Emergency room visit No Depression Screening PHQ9 Intervention Depression screenin g Finding: Positive Depression Screening PHQ-9 Little inte rest or pleasure in doing things: More than half the days Feeling down, depressed, or hopeless: Se veral days Trouble falling or staying a sleep, or sleeping too much: More than half the days Feeling tired or having little energy: M ore than half the days Poor appetite or overeating: More than h [facility] the days Feeling bad about yourself o r that you are a failure, or have let yourself or your family down: Several days Trouble concentrating on thi ngs, such as reading the newspaper or watching television: Several days Moving or speaking so slowly that other people could have noticed; or the opposite, being so fidgety or restless that you have been moving around a lot more than usual: Several days Thoughts that you would be b zari off or of hurting yourself in some way: Not at all Total Score: 12 Interpretation: Moderate Depression Screening [place] Suicide Sev erity Rating Scale (LF) Do [...] end your life?: No ?Interpretation:: Low Risk Flu vaccine Flu vaccine offered Flu Vaccine Declined: . Do Not Use CSSRS Interpretation and Follow [...] time. Plan to address any concerns identified:: No concerns identified. Will continue treatment plan as is. Cravings, Setbacks, Substanc e use, and Stressors Cravings since last visit:: No. Patient denies cravings since last visit. Setbacks since last visit?: No, patient denies setbacks since last visit. Misuse of substances since last visit:: No, patient denies. Stressors: No, patient denies stressors at this time. Withdrawal and Intoxication Symptoms Int oxication Symptoms:: No signs of intoxication are present during visit. Withdrawal Symptoms:: No withdrawal sign s are present during visit. Mental Health, Support Syste m, and Social Determinants Mental Health Status: Stable. Support Systems Include:: Personal suppo rt system (see notes). Court System Involvement?: No Housing Stability:: Stable and safe hous ing. 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 Referrals needed:: No referrals needed a t this time. Recommended Wellness and Pre vention Follow-up Recommended [...] APPEARANCE: pleasant, in n o acute distress PSYCH: speech clear, alert, oriented x4, thought process logical, goal directed
--- OUTSIDE RECORDS SUMMARY | 2024-05-01 13:41 | XMS_ITS | Referral Summary ---
Author Organization [facility] Address [address] [place] [id number] Care Team Providers Care Oil Field Technician Name Role Phone Unavailable Primary Care Provider Unavailabl e Allergies No known active allergies Medications busPIRone (BUSPAR) 7.5 mg tablet Take 1 tablet (7.5 mg total) by mouth 2 (two) times a day 3 Active escitalopram (LEXAPRO) 10 mg tablet Take 1 tablet (10 mg total) by mouth daily [address] (PROTONIX) 40 mg EC tablet Take 1 tablet (40 mg total) by mouth daily 30 tablet 1 3 Active chlordiazePOXID E (LIBRIUM) 25 mg capsule Take 1 capsule (25 mg total) by mouth 3 (three) times a day as needed for withdrawal symptoms for up to 5 days 15 capsule 4 Active multivitamin with folic acid 400 mcg tablet Take 1 tablet by mouth daily 30 tablet 4 Active Active Problems Problem Noted Date Diagnosed Date Alcohol-induced acute pancre atitis, unspecified complication status 11/01/2023 Alcohol-induced acute pancre atitis without infection or necrosis 02/23/2023 Assessment & Plan (02/23/2023 1:16 AM SURVEY SUPERINTENDENT): Presents with a worsening abdominal pain of 2 days' duration with nausea and decreased oral intake Reports that this is the 3rd time he is being treated for acute pancreatitis He drinks alcohol. This is likely alcohol induced Reportedly checked himself into a rehab facility 2 days ago. Lipase is elevated at [address] imaging showed Low-grade pancreatitis without evidence of a pseudocyst or other discrete fluid collection. Aggressive hydration NPO, feed on demand Multimodal pain management Treat acute alcohol withdrawal Counseled on alcohol use Alcohol withdrawal 02/23/2023 Assessment & Plan (02/23/2023 1:18 AM SURVEY SUPERINTENDENT): He is an active and everyday drinker Last drink was within the last 24-48 hours Reportedly checked himself into a rehab facility 2 days ago, after his last drink He is currently with acute pancreatitis Has some mild tremors, jittery, Denies history of alcohol seizures Did report some hallucination and delirium in the past Placed on CIWA protocol. Acute abdominal pain 02/23/2023 Assessment & Plan (02/23/2023 1:19 AM SURVEY SUPERINTENDENT): This is a presenting symptoms In the setting of acute pancreatitis Multimodal pain management Other management as documented elsewhere. Acute pancreatitis 02/23/2023 Alcohol use disorder 02/23/2023 Alcohol abuse 07/25/2022 Assessment & Plan (02/23/2023 1:18 AM SURVEY SUPERINTENDENT): Educated on importance of cessation Anxiety disorder 06/14/2021 Assessment & Plan (02/23/2023 1:18 AM SURVEY SUPERINTENDENT): Continue home regimen Depressive disorder 06/14/2021 Assessment & Plan (02/23/2023 1:18 AM SURVEY SUPERINTENDENT): Continue home regimen Immunizations Name Administration Dates Next Due Influenza, Quadrivalent, Spl it, Preservative Free, Intramuscular 02/24/2023(Deferred: Patient Refused) Social History Tobacco Use Types Packs/Day Years Used Date Smoking Tobacco: Every Day Cigarettes Vaping Smokeless Tobacco: Never Tobacco Cessation:Ready to Q uit: Not Asked; Counseling Given: Not Answered [facility] Utilities Answer Date Recorded In the past 12 months has [employer], oil, or water [employer] threatened to shut off services in your home? No 11/01/2023 Social Connection and Isolat ion Panel [NHANES] Answer Date Recorded In a typical week, how many times do you talk on the phone with family, friends, or neighbors? More than three times a week 11/01/2023 How often do you get togethe r with friends or relatives? More than three times a week 11/01/2023 How often do you attend chur ch or scientologist services? Never 11/01/2023 Do you belong to any clubs o r organizations such as synagogue groups, unions, fraternal or athletic groups, or school groups? No 11/01/2023 How often do you attend meet ings of the clubs or organizations you belong to? Never 11/01/2023 Are you , , di vorced, , never , or living with a partner? Never 11/01/2023 AUDIT-C Answer Date Recorded Q1: How often do you have a drink containing alcohol? 4 or more times a week 11/01/2023 Q2: How many drinks containi ng alcohol do you have on a typical day when you are drinking? 10 or more Q3: How often do you have si x or more drinks on one occasion? Daily or almost daily 11/01/2023 Overall Financial Resource Strain (CARDIA) Answe r Date Recorded How hard is it for you to pa y for the very basics like food, housing, medical care, and heating? Not very hard 11/01/2023 Hunger Vital Sign Answer Date Recorded Within the past 12 months, y ou worried that your food would run out before you got the money to buy more. Never true 11/01/19 24 Within the past 12 months, t he food you bought just didn't last and you didn't have money to get more. Never true 11/01/2023 PRAPARE - Transportation Answer Date Re corded In the past 12 months, has l ack of transportation kept you from medical appointments or from getting medications? No 10/08 In the past 12 months, has l ack of transportation kept you from meetings, work, or from getting things needed for daily living? No 11/01/2023 Housing Stability Vital Sign Answer Oren e Recorded In the last 12 months, was t here a time when you were not able to pay the mortgage or rent on time? No 02/23/2023 In the last 12 months, how many places have you lived? 1 02/23/2023 In the last 12 months, was t here a time when you did not have a steady place to sleep or slept in a long-term (including now)? No 02/23/2023 Housing Stability Vital Sign Answer Oren e Recorded In the last 12 months, was t here a time when you were not able to pay the mortgage or rent on time? No 11/01/2023 In the past 12 months, how m any times have you moved where you were living? 0 11/01/2023 At any time in the past 12 m [facility], were you homeless or living in a long-term (including now)? No 11/01/2023 Personal Safety Answer Date Recorded Have you ever been in or are you currently in a harmful physical or emotional relationship or is someone making you feel afraid or unsafe? Denies 11/01/2023 Sex and Gender Information Value Date Recorded Sex Assigned at Not on file Legal Sex Male 6:18 PM SURVEY SUPERINTENDENT Gender Identity Not on file Sexual Orientation Not on file Last Filed Vital Signs Vital Sign Reading Time Taken Comments Blood Pressure 115/97 11/04/2023 3:00 PM CDT Pulse 74 11/04/2023 3:00 PM CDT Temperature 36.9 ??C (98.4 ??F) 11/04/2023 3:00 PM CD T Respiratory Rate 18 11/04/2023 3:00 PM CDT Oxygen Saturation 98% 11/04/2023 3:00 PM CDT Inhaled Oxygen Concentration - - Weight 89.5 kg (197 lb 5 oz) 11/04/2023 4:25 AM CDT Height 172.7 cm (5' 8 ) 11/01/2023 3:00 AM CDT Body Mass Index 30 11/01/2023 3:00 AM CDT Plan of Treatment Not on file Insurance [facility] [employer] Advance Directives For more information, please contact: [phone] * Full Code (Latest Code Status on File) Date Activated Date Inactivated Comments 11/01/2023 2:38 AM 11/04/2023 8:28 PM * Full Code Date Activated Date Inactivated Comments 02/23/2023 12:54 AM 02/24/2023 11:40 PM
--- OUTSIDE RECORDS SUMMARY | 2024-05-01 13:41 | XMS_ITS | Clinical Summary ---
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 Acute pancreatitis 02/23/2023 Alcohol use disorder 02/23/2023 Alcohol abuse 07/25/2022 Assessment & Plan (02/23/2023 1:18 AM SUBSCRIPTION AGENT): Educated on importance of cessation Anxiety disorder 06/14/2021 Assessment & Plan (02/23/2023 1:18 AM SUBSCRIPTION AGENT): Continue home regimen Depressive disorder 06/14/2021 Assessment & Plan (02/23/2023 1:18 AM SUBSCRIPTION AGENT): Continue home regimen Immunizations Name Administration Dates Next Due Influenza, Quadrivalent, Spl it, Preservative Free, Intramuscular 02/24/2023(Deferred: Patient Refused) Surgical History Surgery Date Site/Laterality Comments NO PAST SURGERIES Medical History Medical History Date Comments Depression Alcohol abuse Substance abuse ([facility]) ([facility]) history of heroin, cocaine, alcohol abuse Pancreatitis Social History Tobacco Use Types Packs/Day Years Used Date Smoking Tobacco: Every Day Cigarettes Vaping Smokeless Tobacco: Never Tobacco Cessation:Ready to Q uit: Not Asked; Counseling Given: Not Answered [facility] Utilities Answer Date Recorded In the past 12 months has [employer], [employer], oil, or water [employer] threatened to shut off services in your [...] often do you attend chur ch or jewish services? Never 11/01/2023 Do you belong to any clubs o r organizations such as jewish groups, unions, fraternal or athletic groups, or [...] place to sleep or slept in a snf (including now)? No 02/23/2023 Housing Stability Vital Sign Answer Oren e Recorded In the last 12 months, was t here a time when you were not able to pay the mortgage or rent on time? No 11/01/2023 In the past 12 months, how m any times have you moved where you were living? 0 11/01/2023 At any time in the past 12 m [facility], were you homeless or living in a snf (including now)? No 11/01/2023 Personal Safety Answer Date Recorded Have you ever been in or are you currently in a harmful physical or emotional relationship or is someone making you feel afraid or unsafe? Denies 11/01/2023 Sex and Gender Information Value Date Recorded Sex Assigned at Not on file Legal Sex Male 6:18 PM SUBSCRIPTION AGENT Gender Identity Not on file Sexual Orientation Not on file Obstetrics History Last Filed Vital Signs Vital Sign Reading [...] 11/01/2023 3:00 AM CDT Plan of Treatment Health Maintenance Due Date Last Done Comments Depression Screening 1990 Hepatitis C Screening 1990 Pneumococcal vaccine <65 (1 of 2 - PCV) 1996 DTaP/Tdap/Td Vaccine (3 - Tdap) 2001 08/06/1992, 12/17/1991 Varicella Vaccines (1 of 2 - 13+ 2-dose series) 12/13/2003 Hepatitis B Screening 2008 Regular Well Visit/Exam 18-64 2008 Covid-19 Vaccine (2 - 4-2 5 season) 2023 03/10/2021 Influenza Vaccine (#1) 2023 03/21/2023 HPV Vaccines Aged Out No longer eligi ble based on patient's age to complete this topic Insurance [facility] [place] [id number] Advance Directives For more information, please contact: [phone] * Full Code (Latest Code Status on File) Date Activated Date Inactivated Comments 11/01/2023 2:38 AM 11/04/2023 8:28 PM * Full Code Date Activated Date Inactivated Comments 02/23/2023 12:54 AM 02/24/2023 11:40 PM
== END 2024-04-28 19:25 | disposition home or self-care (01) ==
PROVIDERS: Emergency Provider Emergency Medicine
DX: R10.13 Epigastric pain (principal); Z87.891 Personal history of nicotine dependence
CPT/HCPCS: 36415; 74177; 80053; 82077; 83690; 85025; 96361; 96374; 96375; 99284; J2270; J2405; J7030; Q9967